=== PATIENT | male | born 1945 | race Caucasian/White ===

== ENCOUNTER → 2017-07-17 | Outpatient (CLI) | payer MEDICARE ==
[~2017-07-17] MED LIST: ALBUAER3 INH; ASPI1TAB57 PO; ATOR40TA16 PO; CHOL100025 CHEW; CRANCAP10 PO; CYCL10TA PO; DICL75TA PO; DOCU1CAP66 PO; FURO20TA PO; GLIP1TAB60 PO; KLOR10TA PO; LEVO175T2 PO; PERC5TAB12 PO; ROPI1TAB PO; STOOL SOFTENER; TEST200I12 IM; VIAG100T PO; VITA10002 PO; VITA200C3 PO
== END ==
LOC: CLAB 09:51
PROVIDERS: ATTEND Urology
DX: E29.1 Testicular hypofunction (principal)
CPT/HCPCS: 84403; 84410

== ENCOUNTER → 2017-07-17 | Outpatient (CLI) | payer MEDICARE ==
[2017-07-17 10:47] LABS: BASOPHIL % 0.6 % (0.0-2.0); EOSINOPHIL # 0.1 TH/MM3 (0-0.4); EOSINOPHIL % 1.6 % (0.0-4.0); HEMATOCRIT 52.2 % (39.0-51.0); HEMO FLAGS DIFF FINAL; LYMPH % 26.3 % (9.0-44.0); LYMPHOCYTE # 2.1 TH/MM3 (1.0-4.8); MEAN CELL VOLUME 89.1 FL (80.0-100.0); MEAN CORPUSCULAR HEMOGLOBIN 29.5 PG (27.0-34.0); MEAN CORPUSCULAR HGB CONC 33.2 % (32.0-36.0); MONO % 7.7 % (0.0-8.0); NEUT % 63.8 % (16.0-70.0); PLATELET COUNT 145 TH/MM3 (150-450); RED BLOOD COUNT 5.87 MIL/MM3 (4.50-5.90); RED CELL DISTRIBUTION WIDTH 15.5 % (11.6-17.2); WHITE BLOOD COUNT 7.9 TH/MM3 (4.0-11.0)
[2017-07-17 10:57] LABS: APTT (PATIENT) 27.8 SEC (24.3-30.1); INTERNATIONAL NORMALIZED RATIO 0.9 RATIO; PROTHROMBIN TIME - PATIENT 10.2 SEC (9.8-11.6)
[2017-07-17 10:59] LABS: BACTERIA, URINE MANY /hpf; BLOOD, URINE NEG (NEG); COMMENT (UR) CULTURE INDICATED; CULTURE IF INDICATED CULTURE INDICATED; GLUCOSE,URINE NEG (NEG); HYALINE CAST, URINE 36 /lpf (RARE); KETONE, URINE NEG (NEG); MUCUS URINE FEW /lpf (OCC); NITRITE,URINE POS (NEG); SQUAMOUS EPITHELIAL CELL URINE 1 /hpf (0-5); URINE COLOR YELLOW (YELLW/STRAW)
[2017-07-17 11:08] LABS: WESTERGREN SEDIMENTATION RATE 1 mm/hr (0-20)
[2017-07-17 11:16] LABS: ANION GAP 6 MEQ/L (5-15); AST (GOT) 16 U/L (15-37); BICARBONATE 31.2 MEQ/L (21.0-32.0); BLOOD UREA NITROGEN 16 MG/DL (7-18); CHLORIDE 99 MEQ/L (98-107); GLOMERULAR FILTRATION RATE 61 ML/MIN (>89); GLUCOSE,FASTING 161 MG/DL (74-99); POTASSIUM 4.2 MEQ/L (3.5-5.1); SODIUM (NA) 136 MEQ/L (136-145)
[2017-07-17 11:18] LABS: ALT (GPT) 38 U/L (12-78)
[2017-07-17 11:20] LABS: ALKALINE PHOSPHATASE 104 U/L (45-117); TOTAL BILIRUBIN ADULT 0.6 MG/DL (0.2-1.0)
--- NOTE | 2017-07-17 11:34 | RADRPT ---
EXAM DATE/TIME: 07/17/2017 11:16 [facility] COMPARISON: No previous studies available for comparison. INDICATIONS : Evaluate for pneumonia, pneumothorax and communicable diseases. Pre-op knee surgery MEDICAL HISTORY : Diebetic SURGICAL HISTORY : None. ENCOUNTER: Initial ACUITY: 1 day PAIN SCORE: 0/10 LOCATION: chest FINDINGS: PA and lateral views of the chest demonstrate the lungs to be symmetrically aerated without evidence of mass, infiltrate or effusion. The cardiomediastinal contours are unremarkable. Osseous structure s are intact. CONCLUSION: No acute disease. Jerad Temple MD FACR on July 17, 2017 at 11:32 Board Certified Radiologist. This report was verified electronically.
== END ==
LOC: CPRE 09:38
PROVIDERS: ATTEND Orthopaedic Surgery Sports Medicine
DX: Z01.811 Encounter for preprocedural respiratory examination (principal); Z01.812 Encounter for preprocedural laboratory examination; Z01.818 Encounter for other preprocedural examination; Z79.01 Long term (current) use of anticoagulants; M25.50 Pain in unspecified joint; M17.11 Unilateral primary osteoarthritis, right knee; B96.1 Klebsiella pneumoniae [K. pneumoniae] as the cause of diseases classified elsewhere; R82.90 Unspecified abnormal findings in urine
CPT/HCPCS: 36415; 71020; 80053; 81001; 85025; 85610; 85652; 85730; 87077; 87086; 87186

== ENCOUNTER 2017-08-03 05:13 | Inpatient (IN) | payer MEDICARE ==
[~2017-08-03] VITALS: Ht 165.1 cm; Wt 110.0 kg
[~2017-08-03 05:13] MED LIST changes: -STOOL SOFTENER
[2017-08-03] MEDS ORDERED: ceFAZolin 2 GM PREMIX 50 ML IV SCH (06:00)
[2017-08-03] MEDS ORDERED: CHLORHEXIDINE GLUCONATE 2 % 1 PACK (2 CLOTHS) TOPICAL PRN (06:00)
[2017-08-03] MEDS ORDERED: LACTATED RINGER'S 1000 ML IV PRN (06:00)
[2017-08-03] MEDS ORDERED: DEXAMETHASONE SOD PHOS 20 MG/5 ML VIAL IV SCH (06:00)
[2017-08-03] MEDS ORDERED: POVIDONE IODINE 7.5% SCRUB 118 ML BOTTLE TOPICAL SCH (06:00)
[2017-08-03] MEDS ORDERED: SODIUM CHLORID 0.9% 500 ML IV PRN (06:00)
[2017-08-03] MEDS ORDERED: METOPROLOL TARTRATE 25 MG TAB PO PRN (06:00)
[2017-08-03] MEDS ORDERED: CHLORHEXIDINE GLUCONATE 4% SOLN 120 ML BTL TOPICAL SCH (06:00)
[2017-08-03] MEDS ORDERED: VANCOMYCIN 1000 MG/NS 250 ML (for <70 kg) IV SCH ×2 (06:00)
[2017-08-03] MEDS ORDERED: POVIDONE IODINE 5% (ANTISEPSIS KIT) 4 APPLICATIONS EACH NARE PRN (06:00)
[2017-08-03] MEDS ORDERED: ENOX40P SQ (06:56)
[2017-08-03] MEDS ORDERED: PERC5TAB12 PO (06:56)
[2017-08-03] MEDS ORDERED: ASPI81CH6 CHEW (06:57)
[2017-08-03] MEDS ORDERED: ONDANSETRON HCL 4 MG/2 ML VIAL IVP PRN (07:00)
[2017-08-03] MEDS ORDERED: Post-op Orders (for Pharmacy) MISC XX ONE (07:00)
[2017-08-03] MEDS ORDERED: ZOLPIDEM TARTRATE 5 MG TAB PO PRN (07:00)
[2017-08-03] MEDS ORDERED: BISACODYL 10 MG SUPP RECTAL PRN (07:00)
[2017-08-03] MEDS ORDERED: MORPHINE SULFATE 4 MG/ML INJ IV PUSH PRN (07:00)
[2017-08-03] MEDS ORDERED: diphenhydrAMINE HCL 50 MG/ML VIAL IV PUSH PRN (07:00)
[2017-08-03] MEDS ORDERED: oxyCODONE/ACETAMINOPHEN 5 MG/325 MG TAB PO PRN (07:00)
[2017-08-03] MEDS ORDERED: GENTAMICIN SULFATE 80 MG/2 ML VIAL ONE (07:32)
[2017-08-03] MEDS: TRANEXAMIC ACID INJ 1,107 MG in SODIUM CHLORIDE 0.9% INJ 100 ML IV SCH ×2 (08:10→11:04)
[2017-08-03] MEDS ORDERED: SODIUM CHLORIDE 0.9% FLUSH 10 ML FLUSH IV FLUSH PRN (08:30)
[2017-08-03] MEDS ORDERED: PILL SPLITTER OTHER PRN (08:30)
[2017-08-03] MEDS ORDERED: SODIUM CHLORIDE 0.9% IV SCH (08:30)
[2017-08-03] MEDS ORDERED: TRANEXAMIC PERI-ARTICULAR 3,000 MG/NS 100 ML P-ARTICULR SCH ×2 (08:30)
[2017-08-03] MEDS ORDERED: TRANEXAMIC ACID IV SCH (08:30)
[2017-08-03] MEDS ORDERED: ROPIVACAINE PERI-ARTICULAR INJECTION. P-ARTICULR SCH ×5 (08:30)
[2017-08-03] MEDS: POTASSIUM CHLORIDE 10 MEQ CONTROLLED RELEASE TAB PO SCH (09:00)
[2017-08-03] MEDS ORDERED: GLUCAGON 1 MG/ML VIAL OTHER PRN (09:00)
[2017-08-03] MEDS: FUROSEMIDE 20 MG TAB PO SCH (09:00)
[2017-08-03] MEDS: SODIUM CHLORIDE 0.9% FLUSH 10 ML FLUSH IV FLUSH SCH ×2 (09:00→20:32)
[2017-08-03] MEDS ORDERED: ALBUTEROL SULFATE 90 MCG/ACT HFA 8 GM INHALER INH PRN (09:00)
[2017-08-03] MEDS ORDERED: DEXTROSE 50% IN WATER 50 ML VIAL(D50) IV PUSH PRN (09:00)
[2017-08-03] MEDS: SODIUM CHLOR 0.9% 1000 ML INJ 1,000 ML IV SCH ×2 (09:00→20:32)
[2017-08-03] MEDS: glipiZIDE 5 MG TAB PO SCH ×2 (09:00→17:47)
[2017-08-03] MEDS ORDERED: DO NOT ADM ANY ANTICOAGULANT DRUGS PRN (10:00)
--- NOTE | 2017-08-03 10:44 | MP ---
cc: SHIRAZ VILLATORO DATE OF SURGERY: 08/03/2017 PREOPERATIVE DIAGNOSIS Right knee osteoarthritis. POSTOPERATIVE DIAGNOSES Right knee osteoarthritis. PROCEDURE Right total knee arthroplasty. SURGEON Dr. Shiraz Villatoro. MALT HOUSE OPERATOR Shiraz Lugo PA-C. ANESTHESIA General with an adductor canal femoral nerve block. ESTIMATED BLOOD LOSS 50 cc. COMPLICATIONS None. IMPLANTS USED DePuy Attune, size 7 posterior stabilized femoral component, size 7 rotating platform tibial baseplate, size 5 mm tibial insert, size 38 patella. JUSTIFICATION This patient is a 72-year-old male with a history of severe end-stage osteoarthritis involving the right knee. He has severe disabling pain with standing, walking, ambulation, weightbearing activities, and even severe pain at rest. He has failed greater than three months of nonoperative conservative treatment to include medication therapy, injections, ambulatory assisted aids, home exercise program, activity modification and weight loss. X-rays of the right knee reveal severe end-stage osteoarthritis with [id number] joint space narrowing, subchondral sclerosis, subchondral cysts, osteophyte admission with subluxation deformity. The patient was counseled on the risks, benefits and alternatives of a total knee arthroplasty. The risks were discussed which include but are not limited to anesthesia, bleeding, infection, damage to nerves and blood vessels, pain, stiffness, failure of components, blood clots, pulmonary embolism and even . The patient's pain is severe. He favored the benefits over the risks. He did wish to proceed with surgery. PROCEDURE IN DETAIL A written consent was obtained. The patient was identified by name, taken to the operating room and placed supine on the operating table. General anesthesia was administered as well as two grams of IV Ancef and one gram of IV vancomycin. He did receive a preoperative adductor canal femoral nerve block by the anesthesiologist under ultrasound guidance. A well-padded tourniquet was placed on the right thigh. The right lower extremity was prepped and draped using isopropyl alcohol, Hibiclens solution and ChloraPrep solution. After a timeout was performed an Esmarch bandage was used to exsanguinate the right lower extremity and the tourniquet inflated to 250 mmHg. A longitudinal incision was made over the anterior aspect of the right knee. A medial parapatellar arthrotomy was performed. The patella was everted and a patellar resection guide was used to resect 9 mm of patella. A size 38 mm guide was placed. Three drill holes were placed and the 38 mm trial fit well. Attention was turned to the femur where an intramedullary guide dali was placed and the distal femoral guide was set to remove 10 mm of distal femur fracture 5 degrees off the anatomic valgus axis alignment. An oscillating saw was used to perform the distal femoral cut. Attention was turned to the tibia where an extramedullary tibial guide was set to remove 5 mm off the lowest portion of the medial tibial plateau. The tibial guide was pinned in place and the tibia cut was performed. A 5 mm spacer block showed full extension. Attention was turned back to the femur where the AP sizing block measured size 7. The anterior reference 3 degree external rotation guide was used to pin a size [address] The anterior, posterior and chamfer cuts were performed. A size 7 PCL box guide was pinned in place and the PCL was box cut with an oscillating saw. The medial and lateral meniscus remnants were removed as well as bone and soft tissue debris from the posterior portion of the knee. A size 7 tibial baseplate was pinned in place and the tibia was drilled and punched. Trial components were evaluated and final components cemented in place. With the current components the leg could achieve full extension to 0 degrees and flexion to 140. No evidence of tibial lift-off. Varus-valgus balance appeared appropriate and symmetric, and the patella was noted to track centrally. The tourniquet was deflated. Bovie cautery was used for hemostasis. The surgical wound was thoroughly irrigated with sterile saline pulse lavage antibiotic-impregnated solution. The arthrotomy incision was closed with #1 Vicryl suture, the subcutaneous layer with 2-0 Vicryl suture, and the skin was closed with Dermabond. Sterile dressing was applied. The patient tolerated the procedure well with no intraoperative complications noted. Shiraz Lugo, physician sourcing assistant certified, was present during the entire procedure to include patient positioning and the procedure itself. The medical necessity of a physician sourcing assistant was indicated in this case due to the complexity of the procedure. He assisted with manipulation of the leg and also traction of muscle, tendon, bone and neurovascular structures. He assisted with preparation of bone and also implantation of the prosthetic replacement. MD VANESSA Moore/NATHALY /9:38 AM /10:22 AM
--- NOTE | 2017-08-03 10:56 | RADRPT ---
EXAM DATE/TIME: 08/03/2017 10:11 [facility] COMPARISON: No previous studies available for comparison. INDICATIONS : Post op right total knee replacement. MEDICAL HISTORY : Diabetes mellitus type II. SURGICAL HISTORY : None. ENCOUNTER: Initial ACUITY: 1 day PAIN SCORE: 8/10 LOCATION: Right Knee FINDINGS: 2 views of the knee show a total knee prosthesis in good position. No fracture or dislocation is obse rved. Soft tissue swelling is noted. Air and fluid noted within the joint. CONCLUSION: Total knee prosthesis in good position. Sam Buck Jr., MD on August 03, 2017 at 10:53 Board Certified Radiologist. This report was verified electronically.
[2017-08-03 11:19] VITALS: BP 153/70; PULSE 90; RESP 17; TEMP 96.7; O2SAT 98
[2017-08-03] MEDS ORDERED: ROCURONIUM INJ 50 MG/5 ML SYRINGE IV PUSH ONE (12:00)
[2017-08-03] MEDS ORDERED: LABETALOL HCL 100 MG/20 ML VIAL IV ONE (12:00)
[2017-08-03] MEDS ORDERED: MORPHINE SULFATE 4 MG/ML INJ IV ONE (12:00)
[2017-08-03] MEDS ORDERED: LIDOCAINE HCL 1% PF 5 ML SYRINGE OTHER ONE (12:00)
[2017-08-03] MEDS ORDERED: LACTATED RINGER'S 1000 ML INJ 1,000 ML IV ONE (12:00)
[2017-08-03] MEDS ORDERED: SUCCINYLCHOLINE CHLORIDE 100 MG/5 ML SYRINGE IV PUSH ONE (12:00)
[2017-08-03] MEDS ORDERED: ONDANSETRON HCL 4 MG/2 ML VIAL IV ONE (12:00)
[2017-08-03] MEDS ORDERED: PROPOFOL 200 MG/20 ML AMP IV ONE (12:00)
[2017-08-03] MEDS ORDERED: DEXAMETHASONE SOD PHOS 4 MG/ML VIAL IV ONE (12:00)
--- NOTE | 2017-08-03 12:58 | PD.CONS ---
[facility] By Dr. Luke Gillis Reason for Consult Medical management Primary Care Physician Non-Staff Diagnoses: History of Present Illness This is a 72-year-old male with a history of right knee pain secondary to osteoarthritis. He underwent total knee replacement by Dr. Luke Gillis who requested consultation to evaluate and manage multiple medical conditions. Anesthesia records reviewed he was hemodynamically stable received 1500 mL crystalloid, EBL 100 mL and urine output of 200 mL. At this time, patient has no complaints denies knee pain and nausea. States he has restless leg syndrome controlled on Requip, recently diagnosed with fluid overload by his occupational medicine officer who started him on Lasix and potassium and also cleared him for surgery, CAD status post cardiac catheterization and negative stress test over a year ago, diabetes mellitus controlled on glipizide, hyperlipidemia controlled on Lipitor and recently treated for Klebsiella UTI with ciprofloxacin. All other systems reviewed negative Review of Systems Except as stated in HPI: all other systems reviewed are Neg Past Family Social History Allergies: Coded Allergies: Tetracyclines (Verified Allergy, Severe, Burning, 08/03/17) doxycycline (Verified Allergy, Severe, POSSIBLE REACTION OF REDNESS, FEELING OF ON FIRE, 08/03/17) ibuprofen (Verified Allergy, Severe, CHEST PAIN, 08/03/17) minocycline (Verified Allergy, Severe, POSSIBLE REACTION OF REDNESS, FEELING OF ON FIRE, 08/03/17) niacin (Verified Allergy, Severe, REDNESS,FELT LIKE i WAS ON FIRE, ) tigecycline (Verified Allergy, Severe, POSSIBLE REACTION OF REDNESS, FEELING OF ON FIRE, 08/03/17) Past Medical History As previously mentioned. He also has hypothyroidism Past Surgical History Tonsillectomy and adenectomy, cholecystectomy, appendectomy, urethral dilation and left total knee replacement Reported Medications Aspirin Low Dose (Aspirin) 81 Mg Chew 81 Mg CHEW BID 30 Days Lovenox Inj (Enoxaparin Sodium) 40 Mg/0.4 Ml Syr 40 Mg SQ DAILY Percocet (Oxycodone-Acetaminophen) 5-325 mg Tab 1-2 Tab PO Q4H PRN Testosterone Cypionate Inj (Testosterone Cypionate) 200 Mg/Ml Inj 200 Mg IM Q28D Viagra (Sildenafil Citrate) 100 Mg Tab 100 Mg PO DAILY PRN Reported Klor-Con 10 (Potassium Chloride) 10 Meq Tab 20 Meq PO DAILY Furosemide 20 Mg Tab 20 Mg PO DAILY Vitamin E 200 Unit Cap 400 Units PO HS Proair Hfa 8.5 GM Inh (Albuterol Sulfate) 90 Mcg/Act Aer 2 Puff INH Q4-6H PRN 108 mcg/actuation Diclofenac Sodium DR (Diclofenac Sodium) 75 Mg Tabdr 75 Mg PO BID PRN Flexeril (Cyclobenzaprine HCl) 10 Mg Tab 10 Mg PO HS 1/2 tab daily Aspirin 81 (Aspirin) 81 Mg Tabdr 81 Mg PO HS Percocet (Oxycodone-Acetaminophen) 5-325 mg Tab 1 Tab PO Q6H PRN Vitamin D3 (Cholecalciferol) 1,000 Unit Chew 1,000 Units CHEW HS Cranberry Plus Vitamin C (Cranberry-Vitamin C-Vitamin E) 4,200-20-3 Mg-Mg-Unit Cap 1 Cap PO HS Vitamin B-12 ER (Cyanocobalamin) 1,000 Mcg Tab 1,000 Mcg PO HS Stool Softener (Docusate Sodium) 100 Mg Cap 100 Mg PO DAILY PRN Atorvastatin (Atorvastatin Calcium) 40 Mg Tab 40 Mg PO HS 1/2 tab daily Levothyroxine (Levothyroxine Sodium) 175 Mcg Tab 175 Mcg PO DAILY@0600 Ropinirole 1 Mg Tab 1 Mg PO HS Glipizide ER (Glipizide) 2.5 Mg Bruno 2.5 Mg PO BID Take with breakfast or first main meal of the day Family History COPD Social History Ex smoker over [id number] smoking history and ex alcoholic drinker Physical Exam Vital Signs Vital Signs Date Time Temp Pulse Resp B/P (MAP) Pulse Ox O2 Delivery O2 Flow Rate FiO2 08/03/17 11:15 Nasal Cannula 3.00 08/03/17 11:00 98.1 81 14 139/63 (88) 95 Nasal Cannula 3 08/03/17 10:45 79 14 147/69 (95) 96 Nasal Cannula 3 08/03/17 10:30 82 14 160/72 (101) 95 Nasal Cannula 3 08/03/17 10:15 80 14 156/72 (100) 96 Nasal Cannula 3 08/03/17 10:08 98.1 81 14 162/74 (103) 94 Nasal Cannula 3 08/03/17 06:28 98.0 77 20 145/80 (101) 96 Physical Exam GENERAL: This is an obese, well-developed patient, in no apparent distress. SKIN: No rashes, ecchymoses or lesions. Cool and dry. HEAD: Atraumatic. Normocephalic. No temporal or scalp tenderness. EYES: Pupils equal round and reactive. Extraocular motions intact. No scleral icterus. No injection or drainage. ENT: Nose without bleeding, purulent drainage or septal hematoma. Throat without erythema, tonsillar hypertrophy or exudate. Uvula midline. Airway patent. NECK: Trachea midline. No JVD or lymphadenopathy. Supple, nontender, no meningeal signs. CARDIOVASCULAR: Regular rate and rhythm without gallops, or rubs. Systolic murmur consistent with aortic stenosis RESPIRATORY: Clear to auscultation. Breath sounds equal bilaterally. No wheezes , rales, or rhonchi. GASTROINTESTINAL: Abdomen soft, non-tender, nondistended. No guarding. MUSCULOSKELETAL: Extremities without clubbing, cyanosis, or edema. Left lower extremity with dry and bulky dressing NEUROLOGICAL: Awake and alert. Cranial nerves II through XII intact. Motor and sensory grossly within normal limits. Five out of 5 muscle strength in all muscle groups. Normal speech. Laboratory Outpatient workup reviewed white count of 7.9 hemoglobin 17 platelet count of 145 INR 0.9 CMP remarkable for creatinine 1.17, urinalysis unremarkable and chest x-ray unremarkable Assessment and Plan Assessment and Plan This is a 72-year-old male with a history of right knee pain secondary to osteoarthritis. He underwent total knee replacement by Dr. Luke Gillis who requested consultation to evaluate and manage multiple medical conditions. Anesthesia records reviewed he was hemodynamically stable received 1500 mL crystalloid, EBL 100 mL and urine output of 200 mL. Left total knee replacement. Stable continue postoperative care with PT, wound care, DVT prophylaxis with Lovenox, incentive spirometry and pain management with Percocet and morphine sulfate. Discontinue Eaton catheter as soon as possible. Check CBC to monitor for postoperative anemia secondary to acute blood loss Restless leg syndrome controlled on Requip which will be continued. Recently diagnosed with fluid overload by his occupational medicine officer who started him on Lasix and potassium and also cleared him for surgery. Continue Lasix and potassium and will decrease IV fluid monitor for overload CAD status post cardiac catheterization and negative stress test over a year ago. Stable continue statin and restart aspirin if okay with cardiology diabetes mellitus controlled on glipizide which will also be continued. Monitor fingerstick sugars have scale coverage Recently treated for Klebsiella UTI with ciprofloxacin. History of recurrent UTI status post urethral dilation. Repeat urinalysis improved Discussed Condition With Patient and family. Ortiz Deal MD Aug 03, 2017 12:58
[2017-08-03] MEDS: ceFAZolin 2 GM PREMIX 50 ML IV SCH ×2 (13:13→20:31)
[2017-08-03] MEDS: INSULIN ASPART SUPPLEMENTAL SCALE SQ SCH ×3 (13:18→20:32)
[2017-08-03] MEDS: LEVOTHYROXINE SODIUM 25 MCG TAB PO SCH (14:00)
[2017-08-03] MEDS: LEVOTHYROXINE SODIUM 150 MCG TAB PO SCH (14:00)
[2017-08-03 16:00] VITALS: BP 114/63; PULSE 96; RESP 18; TEMP 96; O2SAT 95
[2017-08-03 19:00] VITALS: BP 137/76; PULSE 103; RESP 17; TEMP 98.3; O2SAT 96
[2017-08-03] MEDS: CYCLOBENZAPRINE HCL 10 MG TAB PO SCH (20:31)
[2017-08-04] VITALS (7 sets, daily range): BP systolic 118–146; BP diastolic 59–78; PULSE 85–98; RESP 15–19; TEMP 96–97.4; O2SAT 95–97
[2017-08-04] MEDS: ceFAZolin 2 GM PREMIX 50 ML IV SCH (01:06)
[2017-08-04] MEDS: LEVOTHYROXINE SODIUM 25 MCG TAB PO SCH (05:54)
[2017-08-04] MEDS: LEVOTHYROXINE SODIUM 150 MCG TAB PO SCH (05:54)
[2017-08-04 06:13] LABS: HEMATOCRIT 40.4 % (39.0-51.0); MEAN CELL VOLUME 88.5 FL (80.0-100.0); MEAN CORPUSCULAR HEMOGLOBIN 30.1 PG (27.0-34.0); PLATELET COUNT 175 TH/MM3 (150-450); RED BLOOD COUNT 4.57 MIL/MM3 (4.50-5.90); RED CELL DISTRIBUTION WIDTH 14.3 % (11.6-17.2); REVIEW FLAG FINAL; WHITE BLOOD COUNT 14.3 TH/MM3 (4.0-11.0)
[2017-08-04 06:31] LABS: BICARBONATE 26.8 MEQ/L (21.0-32.0); POTASSIUM 4.3 MEQ/L (3.5-5.1)
[2017-08-04] MEDS: ENOXAPARIN SODIUM 40 MG/0.4 ML SYRINGE SQ SCH (07:54)
[2017-08-04] MEDS: INSULIN ASPART SUPPLEMENTAL SCALE SQ SCH ×4 (07:55→21:00)
[2017-08-04] MEDS: oxyCODONE/ACETAMINOPHEN 5 MG/325 MG TAB PO PRN ×3 (07:55→17:32)
[2017-08-04] MEDS: POTASSIUM CHLORIDE 10 MEQ CONTROLLED RELEASE TAB PO SCH (07:55)
[2017-08-04] MEDS: glipiZIDE 5 MG TAB PO SCH ×2 (07:56→17:32)
[2017-08-04] MEDS: SODIUM CHLORIDE 0.9% FLUSH 10 ML FLUSH IV FLUSH SCH ×2 (07:56→22:17)
[2017-08-04] MEDS: FUROSEMIDE 20 MG TAB PO SCH (07:56)
[2017-08-04] MEDS ORDERED: glipiZIDE 5 MG TAB PO SCH (08:00)
--- NOTE | 2017-08-04 08:23 | PD.ORT.PN ---
Subjective Post Op Day #: 1 Subjective Remarks pain under control. Objective Vitals Vital Signs Date Time Temp Pulse Resp B/P (MAP) Pulse Ox O2 Delivery O2 Flow Rate FiO2 08/04/17 07:31 97.4 86 19 118/59 (78) 95 08/04/17 07:15 Nasal Cannula 3.00 08/04/17 04:00 96.0 96 17 129/70 (89) 96 08/04/17 00:00 96.0 98 15 138/78 (98) 97 08/03/17 20:40 Nasal Cannula 3.00 08/03/17 19:00 98.3 103 17 137/76 (96) 96 08/03/17 16:00 96.0 96 18 114/63 (80) 95 08/03/17 12:59 Nasal Cannula 3.00 08/03/17 11:19 96.7 90 17 153/70 (97) 98 08/03/17 11:15 Nasal Cannula 3.00 08/03/17 11:00 98.1 81 14 139/63 (88) 95 Nasal Cannula 3 08/03/17 10:45 79 14 147/69 (95) 96 Nasal Cannula 3 08/03/17 10:30 82 14 160/72 (101) 95 Nasal Cannula 3 08/03/17 10:15 80 14 156/72 (100) 96 Nasal Cannula 3 08/03/17 10:08 98.1 81 14 162/74 (103) 94 Nasal Cannula 3 I/O 08/03/17 08/03/17 08/03/17 08/04/17 08/04/17 08/04/17 07:00 15:00 23:00 07:00 15:00 23:00 Intake Total 1980 ml 530 ml 290 ml Output Total 750 ml 1600 ml 600 ml Balance 1230 ml -1070 ml -310 ml Intake Oral 480 ml 480 ml 240 ml IV Total 50 ml 50 ml Other 1500 ml Output Urine Total 650 ml 1600 ml 600 ml Estimated Blood Loss 100 ml # Bowel Movements 0 0 0 Result Diagram: 08/04/17 04508/04/17 045 Objective Remarks in bed, nad dressing c/d/i neg homans nvi Assessment & Plan Ortho Post Op Day #: 1 Problem List: Assessment and Plan s/p R TKA wbat daily dressing changes lovenox d/c planning to snf rx in chart [id number] signed f/up dr. whyte 2 weeks Luke Lugo Aug 04, 2017 08:23
--- NOTE | 2017-08-04 08:25 | HHI.DCPOC ---
Discharge Care Plan Diagnosis: (1) Primary localized osteoarthrosis, lower leg Your Health Problems Are: Difficulty with ADL Goals to Promote Your Health * To prevent worsening of your condition and complications * To maintain your health at the optimal level Directions to Meet Your Goals Take your medications as prescribed Follow your dietary instruction Follow activity as directed Keep your appointments as scheduled Take your immunizations and boosters as scheduled If your symptoms worsen call your PCP, if no PCP go to Urgent Care Center or Emergency Room Smoking is Dangerous to Your Health. Avoid second hand smoke Call the 24-hour hour crisis hotline for domestic abuse at Luke Lugo Aug 04, 2017 08:25
[2017-08-04] MEDS ORDERED: WALKER WHEELS/F1 MIS (08:27)
[2017-08-04] MEDS ORDERED: COMMODE 3-IN-11 MIS (08:27)
[2017-08-04] MEDS ORDERED: CPMMACHINE (08:27)
--- NOTE | 2017-08-04 09:28 | HHI.PR ---
Subjective Remarks Follow-up right knee surgery. Patient states he is doing okay denies pain. Eaton catheter has been discontinued and has not been able to void. Patient seems to be forgetful doesn't remember that he was already out of bed yesterday. He also doesn't recall being on other diabetic medications. Discussed with RN to clarify with family acuity of forgetfulness Objective Vitals Vital Signs Date Time Temp Pulse Resp B/P (MAP) Pulse Ox O2 Delivery O2 Flow Rate FiO2 08/04/17 07:31 97.4 86 19 118/59 (78) 95 08/04/17 07:15 Nasal Cannula 3.00 08/04/17 04:00 96.0 96 17 129/70 (89) 96 08/04/17 00:00 96.0 98 15 138/78 (98) 97 08/03/17 20:40 Nasal Cannula 3.00 08/03/17 19:00 98.3 103 17 137/76 (96) 96 08/03/17 16:00 96.0 96 18 114/63 (80) 95 08/03/17 12:59 Nasal Cannula 3.00 08/03/17 11:19 96.7 90 17 153/70 (97) 98 08/03/17 11:15 Nasal Cannula 3.00 08/03/17 11:00 98.1 81 14 139/63 (88) 95 Nasal Cannula 3 08/03/17 10:45 79 14 147/69 (95) 96 Nasal Cannula 3 08/03/17 10:30 82 14 160/72 (101) 95 Nasal Cannula 3 08/03/17 10:15 80 14 156/72 (100) 96 Nasal Cannula 3 08/03/17 10:08 98.1 81 14 162/74 (103) 94 Nasal Cannula 3 I/O 08/03/17 08/03/17 08/03/17 08/04/17 08/04/17 08/04/17 07:00 15:00 23:00 07:00 15:00 23:00 Intake Total 1980 ml 530 ml 290 ml Output Total 750 ml 1600 ml 600 ml Balance 1230 ml -1070 ml -310 ml Intake Oral 480 ml 480 ml 240 ml IV Total 50 ml 50 ml Other 1500 ml Output Urine Total 650 ml 1600 ml 600 ml Estimated Blood Loss 100 ml # Bowel Movements 0 0 0 Result Diagram: 08/04/17 0450 08/04/17 0450 Imaging Last Impressions Knee X-Ray 08/03/17 0654 Signed Impressions: Service Date/Time: Thursday, August 03, 2017 10:11 - CONCLUSION: Total knee prosthesis in good position. Sam Buck Jr., MD Objective Remarks GENERAL: This is an obese, well-developed patient, in no apparent distress. SKIN: No rashes, ecchymoses or lesions. Cool and dry. CARDIOVASCULAR: Regular rate and rhythm without gallops, or rubs. Systolic murmur consistent with aortic stenosis RESPIRATORY: Clear to auscultation. Breath sounds equal bilaterally. No wheezes , rales, or rhonchi. GASTROINTESTINAL: Abdomen soft, non-tender, nondistended. No guarding. MUSCULOSKELETAL: Extremities without clubbing, cyanosis, or edema. Left lower extremity with dry and bulky dressing NEUROLOGICAL: Awake and alert. Cranial nerves II through XII intact. Motor and sensory grossly within normal limits. Five out of 5 muscle strength in all muscle groups. Normal speech. A/P Assessment and Plan This is a 72-year-old male with a history of right knee pain secondary to osteoarthritis. He underwent total knee replacement by Dr. Luke Gillis who requested consultation to evaluate and manage multiple medical conditions. Anesthesia records reviewed he was hemodynamically stable received 1500 mL crystalloid, EBL 100 mL and urine output of 200 mL. Left total knee replacement. Stable continue postoperative care with PT, wound care, DVT prophylaxis with Lovenox, incentive spirometry and pain management with Percocet and morphine sulfate. Discontinued Eaton catheter and monitor voiding. Check CBC to monitor for postoperative anemia secondary to acute blood loss Leukocytosis likely reactive. Monitor Restless leg syndrome controlled on Requip which will be continued. Recently diagnosed with fluid overload by his food and nutrition professor who started him on Lasix and potassium and also cleared him for surgery. Continue Lasix and potassium. Discontinue IV fluids CAD status post cardiac catheterization and negative stress test over a year ago. Stable continue statin and restart aspirin if okay with cardiology diabetes mellitus. Uncontrolled increase glipizide to 5 mg twice a day. Check A1c consider metformin. Monitor fingerstick with sliding scale coverage Recently treated for Klebsiella UTI with ciprofloxacin. History of recurrent UTI status post urethral dilation. Repeat urinalysis improved Cognitive impairment. Not clear if this is chronic we will clarify with family Ortiz Deal MD Aug 04, 2017 09:28
[2017-08-04] MEDS: SODIUM CHLOR 0.9% 1000 ML INJ 1,000 ML IV SCH (10:43)
[2017-08-04 15:57] LABS: HEMOGLOBIN A1a 0.9 %; HEMOGLOBIN A1b 2.1 %; HEMOGLOBIN Ao 82.3 %; HEMOGLOBIN LA1C 2.5 %; HEMOGLOBIN P3 4.3 %
[2017-08-04] MEDS: MULTIVITAMINS/MINERALS THERAPEUTIC TAB PO SCH (22:16)
[2017-08-04] MEDS: DOCUSATE SODIUM 100 MG CAP PO SCH (22:16)
[2017-08-04] MEDS: CYCLOBENZAPRINE HCL 10 MG TAB PO SCH (22:17)
[2017-08-05 00:05] VITALS: BP 143/65; PULSE 87; RESP 17; TEMP 97.9; O2SAT 97
[2017-08-05] MEDS: SODIUM CHLOR 0.9% 1000 ML INJ 1,000 ML IV SCH ×2 (01:01→10:52)
[2017-08-05 06:35] LABS: HEMATOCRIT 40.7 % (39.0-51.0); MEAN CELL VOLUME 87.9 FL (80.0-100.0); MEAN CORPUSCULAR HEMOGLOBIN 29.2 PG (27.0-34.0); MEAN CORPUSCULAR HGB CONC 33.2 % (32.0-36.0); PLATELET COUNT 181 TH/MM3 (150-450); RED BLOOD COUNT 4.63 MIL/MM3 (4.50-5.90); RED CELL DISTRIBUTION WIDTH 14.8 % (11.6-17.2); REVIEW FLAG FINAL; WHITE BLOOD COUNT 11.1 TH/MM3 (4.0-11.0)
[2017-08-05] MEDS: LEVOTHYROXINE SODIUM 150 MCG TAB PO SCH (06:36)
[2017-08-05] MEDS: LEVOTHYROXINE SODIUM 25 MCG TAB PO SCH (06:36)
[2017-08-05 07:01] LABS: BICARBONATE 33.4 MEQ/L (21.0-32.0); POTASSIUM 4.3 MEQ/L (3.5-5.1)
[2017-08-05 07:30] VITALS: BP 154/71; PULSE 89; RESP 19; TEMP 97.5; O2SAT 97
--- NOTE | 2017-08-05 07:41 | PD.ORT.PN ---
Subjective Post Op Day #: 2 Subjective Remarks pain tolerable. thinks he is doing well. Objective Vitals Vital Signs Date Time Temp Pulse Resp B/P (MAP) Pulse Ox O2 Delivery O2 Flow Rate FiO2 08/05/17 07:30 97.5 89 19 154/71 (98) 97 08/05/17 00:05 97.9 87 17 143/65 (91) 97 08/04/17 20:00 96.8 89 18 146/65 (92) 97 08/04/17 16:00 96.7 85 19 130/64 (86) 97 08/04/17 11:48 96.4 93 19 125/67 (86) 95 08/04/17 09:00 97 Nasal Cannula 2.00 I/O 08/04/17 08/04/17 08/04/17 08/05/17 08/05/17 08/05/17 07:00 15:00 23:00 07:00 15:00 23:00 Intake Total 290 ml 600 ml 360 ml 240 ml Output Total 600 ml 500 ml Balance -310 ml 100 ml 360 ml 240 ml Intake Oral 240 ml 600 ml 360 ml 240 ml IV Total 50 ml Output Urine Total 600 ml 500 ml # Voids 1 2 # Bowel Movements 0 0 0 0 Result Diagram: 08/05/1762108/05/17621 Objective Remarks in bed, nad incision no erythema, no drainage neg homans nvi Assessment & Plan Ortho Post Op Day #: 2 Problem List: Assessment and Plan s/p R TKA wbat daily dressing changes lovenox d/c planning to snf rx in chart [id number] signed f/up dr. whyte 2 weeks Luke Lugo Aug 05, 2017 07:41
[2017-08-05] MEDS: glipiZIDE 5 MG TAB PO SCH ×2 (08:00→17:06)
[2017-08-05] MEDS: INSULIN ASPART SUPPLEMENTAL SCALE SQ SCH ×4 (08:00→21:40)
[2017-08-05] MEDS: DOCUSATE SODIUM 100 MG CAP PO SCH ×2 (08:03→21:40)
[2017-08-05] MEDS: POTASSIUM CHLORIDE 10 MEQ CONTROLLED RELEASE TAB PO SCH (08:04)
[2017-08-05] MEDS: FUROSEMIDE 20 MG TAB PO SCH (08:04)
[2017-08-05] MEDS: MULTIVITAMINS/MINERALS THERAPEUTIC TAB PO SCH ×2 (08:04→21:39)
[2017-08-05] MEDS: ENOXAPARIN SODIUM 40 MG/0.4 ML SYRINGE SQ SCH (08:05)
[2017-08-05] MEDS: oxyCODONE/ACETAMINOPHEN 5 MG/325 MG TAB PO PRN (08:05)
[2017-08-05] MEDS: SODIUM CHLORIDE 0.9% FLUSH 10 ML FLUSH IV FLUSH SCH ×2 (08:05→21:00)
[2017-08-05 11:34] VITALS: BP 130/60; PULSE 91; RESP 19; TEMP 97.8; O2SAT 98
--- NOTE | 2017-08-05 12:57 | HHI.PR ---
Subjective Remarks Follow-up right knee surgery. Appears in nad. Pain is better controlled by meds. No fever or chills. No n/v/d/ c. Objective Vitals Vital Signs Date Time Temp Pulse Resp B/P (MAP) Pulse Ox O2 Delivery O2 Flow Rate FiO2 08/05/17 11:34 97.8 91 19 130/60 (83) 98 08/05/17 11:24 Room Air 08/05/17 08:09 Nasal Cannula 1.00 08/05/17 07:30 97.5 89 19 154/71 (98) 97 08/05/17 00:05 97.9 87 17 143/65 (91) 97 08/04/17 20:00 96.8 89 18 146/65 (92) 97 08/04/17 16:00 96.7 85 19 130/64 (86) 97 I/O 08/04/17 08/04/17 08/04/17 08/05/17 08/05/17 08/05/17 07:00 15:00 23:00 07:00 15:00 23:00 Intake Total 290 ml 600 ml 360 ml 240 ml Output Total 600 ml 500 ml Balance -310 ml 100 ml 360 ml 240 ml Intake Oral 240 ml 600 ml 360 ml 240 ml IV Total 50 ml Output Urine Total 600 ml 500 ml # Voids 1 2 # Bowel Movements 0 0 0 0 Result Diagram: 08/05/1762108/05/1722 Imaging Last Impressions Knee X-Ray 08/03/17 0654 Signed Impressions: Service Date/Time: Thursday, August 03, 2017 10:11 - CONCLUSION: Total knee prosthesis in good position. Sam Buck Jr., MD Objective Remarks GENERAL: This is an obese, well-developed patient, in no apparent distress. SKIN: No rashes, ecchymoses or lesions. Cool and dry. CARDIOVASCULAR: Regular rate and rhythm without gallops, or rubs. Systolic murmur consistent with aortic stenosis RESPIRATORY: Clear to auscultation. Breath sounds equal bilaterally. No wheezes , rales, or rhonchi. GASTROINTESTINAL: Abdomen soft, non-tender, nondistended. No guarding. MUSCULOSKELETAL: Extremities without clubbing, cyanosis, or edema. Left lower extremity with dry and bulky dressing NEUROLOGICAL: Awake and alert. Cranial nerves II through XII intact. Motor and sensory grossly within normal limits. Five out of 5 muscle strength in all muscle groups. Normal speech. A/P Assessment and Plan This is a 72-year-old male with a history of right knee pain secondary to osteoarthritis. He underwent total knee replacement by Dr. Luke Gillis who requested consultation to evaluate and manage multiple medical conditions. Anesthesia records reviewed he was hemodynamically stable received 1500 mL crystalloid, EBL 100 mL and urine output of 200 mL. Left total knee replacement. Stable continue postoperative care with PT, wound care, DVT prophylaxis with Lovenox, incentive spirometry and pain management with Percocet and morphine sulfate. Discontinued Eaton catheter and monitor voiding. Check CBC to monitor for postoperative anemia secondary to acute blood loss Leukocytosis likely reactive. Monitor Restless leg syndrome controlled on Requip which will be continued. 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 Continue Lasix and potassium. Discontinue IV fluids CAD status post cardiac catheterization and negative stress test over a year ago. Stable continue statin and restart aspirin if okay with cardiology Diabetes mellitus. Uncontrolled. A1c is 7.2 . Increase glipizide to 5 mg twice a day. Consider metformin. Monitor fingerstick with sliding scale coverage Recently treated for Klebsiella UTI with ciprofloxacin. History of recurrent UTI status post urethral dilation. Repeat urinalysis improved Cognitive impairment. Not clear if this is chronic we will clarify with family Discussed with the patient, nurse. Tina Napier MD Aug 05, 2017 12:57
[2017-08-05 15:33] VITALS: O2SAT 98
[2017-08-05 15:47] VITALS: BP 142/68; PULSE 91; RESP 17; TEMP 99.5; O2SAT 97
[2017-08-05 20:50] VITALS: BP 142/65; PULSE 101; RESP 18; TEMP 96.7; O2SAT 96
[2017-08-05] MEDS: CYCLOBENZAPRINE HCL 10 MG TAB PO SCH (21:40)
[2017-08-06] VITALS: BP 148/72; PULSE 103; RESP 18; TEMP 97.8; O2SAT 96
[2017-08-06] MEDS ORDERED: BISACODYL EC 5 MG TABEC PO ONE (04:00)
[2017-08-06] MEDS ORDERED: POLYETHYLENE GLYCOL 17 GM PKG PO ONE (04:00)
[2017-08-06] MEDS: LEVOTHYROXINE SODIUM 25 MCG TAB PO SCH (05:13)
[2017-08-06] MEDS: LEVOTHYROXINE SODIUM 150 MCG TAB PO SCH (05:14)
[2017-08-06 05:26] LABS: MEAN CELL VOLUME 87.9 FL (80.0-100.0); MEAN CORPUSCULAR HEMOGLOBIN 29.9 PG (27.0-34.0); PLATELET COUNT 186 TH/MM3 (150-450); RED BLOOD COUNT 4.55 MIL/MM3 (4.50-5.90); RED CELL DISTRIBUTION WIDTH 14.8 % (11.6-17.2); REVIEW FLAG FINAL; WHITE BLOOD COUNT 10.3 TH/MM3 (4.0-11.0)
[2017-08-06] MEDS: SODIUM CHLOR 0.9% 1000 ML INJ 1,000 ML IV SCH ×2 (05:37→07:51)
[2017-08-06 05:51] LABS: BICARBONATE 31.1 MEQ/L (21.0-32.0); POTASSIUM 3.9 MEQ/L (3.5-5.1)
[2017-08-06] MEDS: DOCUSATE SODIUM 100 MG CAP PO SCH (07:57)
[2017-08-06] MEDS: POTASSIUM CHLORIDE 10 MEQ CONTROLLED RELEASE TAB PO SCH (07:57)
[2017-08-06] MEDS: SODIUM CHLORIDE 0.9% FLUSH 10 ML FLUSH IV FLUSH SCH (07:58)
[2017-08-06] MEDS: FUROSEMIDE 20 MG TAB PO SCH (07:58)
[2017-08-06] MEDS: ENOXAPARIN SODIUM 40 MG/0.4 ML SYRINGE SQ SCH (07:58)
[2017-08-06] MEDS: MULTIVITAMINS/MINERALS THERAPEUTIC TAB PO SCH (07:58)
[2017-08-06 08:00] VITALS: BP 148/78; PULSE 92; RESP 16; TEMP 97.1; O2SAT 95
[2017-08-06] MEDS: INSULIN ASPART SUPPLEMENTAL SCALE SQ SCH ×2 (08:00→12:00)
[2017-08-06] MEDS: glipiZIDE 5 MG TAB PO SCH (08:00)
[2017-08-06 08:02] VITALS: BP 148/78; PULSE 89; RESP 17; TEMP 97.1; O2SAT 95
--- NOTE | 2017-08-06 08:05 | PD.ORT.PN ---
Subjective Post Op Day #: 3 Subjective Remarks pain tolerable. doing better. Objective Vitals Vital Signs Date Time Temp Pulse Resp B/P (MAP) Pulse Ox O2 Delivery O2 Flow Rate FiO2 08/06/17 00:00 97.8 103 18 148/72 (97) 96 08/05/17 20:50 96.7 101 18 142/65 (90) 96 08/05/17 15:47 99.5 91 17 142/68 (92) 97 08/05/17 15:33 98 Nasal Cannula 2.00 08/05/17 11:34 97.8 91 19 130/60 (83) 98 08/05/17 11:24 Room Air 08/05/17 08:09 Nasal Cannula 1.00 I/O 08/05/17 08/05/17 08/05/17 08/06/17 08/06/17 08/06/17 07:00 15:00 23:00 07:00 15:00 23:00 Intake Total 240 ml 850 ml 360 ml 120 ml Output Total 450 ml 300 ml 500 ml Balance 240 ml 400 ml 60 ml -380 ml Intake Oral 240 ml 850 ml 360 ml 120 ml Output Urine Total 450 ml 300 ml 500 ml # Voids 2 1 1 # Bowel Movements 0 0 Result Diagram: 08/06/17 0404 08/06/17 0404 Objective Remarks in bed, nad dressing c/d/i neg homans nvi Assessment & Plan Ortho Post Op Day #: 3 Problem List: Assessment and Plan s/p R TKA wbat daily dressing changes lovenox d/c planning to snf - cleared today rx in chart 3001 signed f/up dr. whyte 2 weeks Luke Lugo Aug 06, 2017 08:05
[2017-08-06] MEDS: oxyCODONE/ACETAMINOPHEN 5 MG/325 MG TAB PO PRN (12:46)
--- NOTE | 2017-08-07 09:02 | MD ---
cc: SHIRAZ GILLIS M.D. ADMISSION DATE: 08/03/2017 DISCHARGE DATE: 08/06/2017 ADMISSION DIAGNOSIS Severe degenerative osteoarthritis right knee DISCHARGE DIAGNOSIS Severe degenerative osteoarthritis right knee HISTORY OF PRESENT ILLNESS Mr. Tineo is a 72-year-old male who has been a longstanding patient at the [facility]. He is currently being cared for by Dr. Shiraz Gillis regarding his severe and progressive right knee pain. He does have a history of a prior left total knee arthroplasty by Dr. Dioni Steven. Currently his right knee pain is inhibiting his activities of daily living. He has a severe constant aching sensation aggravated by weightbearing activities. He has no alleviating factors, although in the past, he has tried medications, bracing, physical therapy, home exercises, and corticosteroid injections without relief of his symptoms. He does have x-ray evidence of severe degenerative osteoarthritis of the right knee. While in the office, the patient was counseled on his diagnosis and treatment options. The risks, benefits, and indications all were discussed. The patient did elect to proceed with surgical intervention to include a right total knee arthroplasty. Date of surgery 08/03/2017, right total knee arthroplasty. Postop after surgery, the patient admitted to [facility] where he received appropriate medical management, pain control with DVT prophylaxis, and physical therapy. Discharge. Once being from the hospital, the patient was cleared to go to a group home facility. He is in stable condition. He may weight-bear as tolerated. The patient is to receive daily dressing changes and has been instructed on appropriate wound care management. The patient has been provided prescriptions for pain control, as well as DVT prophylaxis and medications. He has also been provided a follow-up appointment in approximately two weeks from day of surgery. The patient has asked appropriate questions which have been answered. The patient is cleared for discharge. Dictated by: Kody Lugo PA-C MD VANESSA Moore/MARCELL /8:05 AM /8:54 AM
== END 2017-08-06 12:52 | DRG 470 ==
LOC: HSDI 05:13 → N06A 11:27
PROVIDERS: ADMIT Orthopaedic Surgery Sports Medicine; ATTEND Orthopaedic Surgery Sports Medicine
PROC: 3E0T3BZ Introduction of Anesthetic Agent into Peripheral Nerves and Plexi, Percutaneous Approach (ICD-10-PCS; 2017-08-03)
PROC: 0SRC0J9 Replacement of Right Knee Joint with Synthetic Substitute, Cemented, Open Approach (ICD-10-PCS; principal; 2017-08-03 08:10)
DX: M17.11 Unilateral primary osteoarthritis, right knee (principal); E11.65 Type 2 diabetes mellitus with hyperglycemia; J44.9 Chronic obstructive pulmonary disease, unspecified; Z68.41 Body mass index [BMI] 40.0-44.9, adult; Z79.4 Long term (current) use of insulin; Z79.84 Long term (current) use of oral hypoglycemic drugs; E66.9 Obesity, unspecified; E78.5 Hyperlipidemia, unspecified; I25.10 Atherosclerotic heart disease of native coronary artery without angina pectoris; E03.9 Hypothyroidism, unspecified; H91.92 Unspecified hearing loss, left ear; G25.81 Restless legs syndrome; Z87.440 Personal history of urinary (tract) infections; Z87.891 Personal history of nicotine dependence; Z96.652 Presence of left artificial knee joint
CPT/HCPCS: 73560; 80048; 82948; 83036; 85027; 86850; 86900; 86901; 94150; C1776; J0330; J0690; J0735; J1100; J1580; J1650; J1815; J1885; J2270; J2405; J2795; J3010; J3370; J7030; J7050; J7120; L1830

== ENCOUNTER 2018-05-17 15:53 | Inpatient (IN) ==
--- NOTE | 2018-05-17 16:34 | XR ---
EXAM DATE: 05/17/2018 4:28 PM EDT AGE/SEX: 73 years / Male INDICATIONS: . Chest pain CLINICAL DATA: This is the patient's initial encounter. Patient reports that signs and symptoms have been present for 2 weeks and indicates a pain score of 1/10. MEDICAL/SURGICAL HISTORY: Diabetes mellitus type II. Hypertension. None. COMPARISON: POI, XR CHEST PA AND LAT, 04/13/2017. . FINDINGS: Frontal and lateral views of the chest demonstrate a normal size cardiac silhouette. No pleural effus ion, airspace consolidation, or pneumothorax is identified. The bones and soft tissues demonstrate no acute abnormality. There are degenerative changes throughout the thoracic spine. CONCLUSION: No acute cardiopulmonary abnormality is identified. Electronically signed by: Troy Askew MD 05/17/2018 4:33 PM EDT
[2018-05-17 17:15] LABS: Baso % (Auto) 0.6 % (0.0-2.0); Eos # (Auto) 0.2 th/mm3 (0.0-0.4); Eos % (Auto) 1.8 % (0.0-4.0); Hematocrit 53.6 % (39.0-51.0); Hemoglobin 17.9 gm/dL (13.0-17.0); Lymph # (Auto) 2.3 th/mm3 (1.0-4.8); Lymph % (Auto) 27.8 % (9.0-44.0); Mean Corpuscular HGB Conc 33.4 % (32.0-36.0); Mean Platelet Volume 10.7 fL (7.0-11.0); Mono # (Auto) 0.5 th/mm3 (0.0-0.9); Mono % (Auto) 6.1 % (0.0-8.0); Neut # (Auto) 5.2 th/mm3 (1.8-7.7); Neut % (Auto) 63.7 % (16.0-70.0); Platelet Count 166 th/mm3 (150-450); Red Blood Count 5.96 mil/mm3 (4.50-5.90); Red Cell Distribution Width 14.5 % (11.6-17.2); White Blood Count 8.2 th/mm3 (4.0-11.0)
[2018-05-17 17:32] LABS: Alanine Aminotransferase 34 U/L (12-78); Albumin 3.8 g/dL (3.4-5.0); Anion Gap 7 meq/L (5-15); Aspartate Aminotransferase 17 U/L (15-37); Blood Urea Nitrogen 15 mg/dL (7-18); Calcium 8.7 mg/dL (8.5-10.1); Carbon Dioxide 30.5 meq/L (21.0-32.0); Chloride 105 meq/L (98-107); Glomerular Filtration Rate 73 mL/min (>89); Glucose,Random 92 mg/dL (74-106); Potassium 4.4 meq/L (3.5-5.1); Sodium 142 meq/L (136-145)
[2018-05-17 17:36] LABS: Alkaline Phosphatase 79 U/L (45-117); Total Protein 7.5 g/dL (6.4-8.2)
--- NOTE | 2018-05-17 19:28 | ED ---
HPI General Chief Complaint: Chest Pain Stated Complaint: chest pain Time Seen by Provider: 05/17/18 18:54 Source: patient Mode of arrival: ambulatory Limitations: no limitations History of Present Illness HPI narrative: Patient is a 73-year-old male presented to emerge department for evaluation of chest pain. Patient states his been on and off for the last 4 months. 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 It started in his left anterior chest wall and radiated across. Patient was sent to the emergency department for evaluation. Patient states that when the pain started he became short of breath and had cold sweats. Patient does not quantify his pain. Patient states that he still has the pain now. He reports that he is supposed to have an aortic valve replacement performed. He also reports that he is going to have a heart cath tomorrow. Symptom onset has been gradual, symptoms are intermittent and moderate in nature. There are no alleviating factors. Symptoms started when patient was at rest. MD complaint: chest pain Complete Quality Measures for STEMI Alert Patients STEMI Alert: No Onset (ago): hour(s) Duration: constant Onset: during rest Pain location: substernal, left chest and right chest Severity: moderate Quality: tightness Pain radiation: none Relieving factors: nothing Exacerbating factors: nothing Associated symptoms: diaphoresis and dyspnea Treatments prior to arrival chest pain: none Related Data Allergies Allergy/AdvReac Type Severity Reaction Status Date / Time doxycycline Allergy Severe POSSIBLE Verified 09/10/17 10:45 REACTION OF REDNESS, FEELING OF ON FIRE ibuprofen Allergy Severe CHEST PAIN Verified 09/10/17 10:45 minocycline Allergy Severe POSSIBLE Verified 09/10/17 10:45 REACTION OF REDNESS, FEELING OF ON FIRE niacin Allergy Severe REDNESS,FELT Verified 09/10/17 10:45 LIKE i WAS ON FIRE Tetracyclines Allergy Severe Burning Verified 09/10/17 10:45 tigecycline Allergy Severe POSSIBLE Verified 09/10/17 10:45 REACTION OF REDNESS, FEELING OF ON FIRE Review of Systems ROS: all other systems reviewed are negative PMFSH History History Provided By: Patient Medical History Medical History Aortic valve stenosis (Chronic) CAD (coronary artery disease) (Chronic) COPD (chronic obstructive pulmonary disease) (Chronic) Hyperlipidemia (Chronic) Hypertension (Chronic) Hypothyroidism (Chronic) Restless leg syndrome (Chronic) Type 2 diabetes mellitus (Chronic) Social History Social History Smoking Status: Former smoker How Often Do You Have a Drink Containing Alcohol: Monthly or less Recent Travel in [facility] within the Last 8 Weeks: No Recent Out of Country Travel within the Last 8 Weeks: No Exam Narrative Exam Narrative: GENERAL: Overweight, well-developed, alert elderly gentleman. Presenting in no acute distress. SKIN: Focused skin assessment warm/dry. HEAD: Atraumatic. Normocephalic. EYES: Pupils equal and round. No scleral icterus. No injection or drainage. ENT: No nasal bleeding or discharge. Mucous membranes pink and moist. NECK: Trachea midline. No JVD. CARDIOVASCULAR: Regular rate and rhythm. No murmur appreciated. RESPIRATORY: No accessory muscle use. Clear to auscultation. Breath sounds equal bilaterally. GASTROINTESTINAL: Abdomen soft, non-tender, nondistended. Hepatic and splenic margins not palpable. MUSCULOSKELETAL: No obvious deformities. No clubbing. No cyanosis. No edema. NEUROLOGICAL: Awake and alert. No obvious cranial nerve deficits. Motor grossly within normal limits. Normal speech. PSYCHIATRIC: Appropriate mood and affect; insight and judgment normal. Course Initial Documented Vital Signs Temperature 97.4 F L 05/17/18 16:00 Pulse Rate 53 L 05/17/18 16:00 Respiratory Rate 05/17/18 16:00 Blood Pressure 180/83 H 05/17/18 16:00 Pulse Oximetry 96 05/17/18 16:00 Last Documented Vital Signs Temperature 97.4 F L 05/17/18 16:00 Pulse Rate 53 L 05/17/18 16:00 Respiratory Rate 05/17/18 16:00 Blood Pressure 180/83 H 05/17/18 16:00 Pulse Oximetry 96 05/17/18 16:00 Clinical Decision Support HEART Score Questions History: Highly suspicious EKG: Non-specific repolarization disturbance Age: 65 years+ Risk Factors: 3 or more Risk Factors or Hx of Atherosclerotic Disease Initial Troponin: Normal Limit Heart Score HEART Score: 7 7 Medical Decision Making MICHELLE Attestation MICHELLE supervised visit: Yes Attestation: I, Dr. Marin, have reviewed the advance practice practitioner's documentation and am in agreement, met with the patient face to face, made the diagnosis, and the medical decision making was done by me. The patient was initially evaluated by Maude, the LAPIDARY APPRENTICE. Please see their complete history and physical. 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 The patient has a prior history of coronary artery disease with stent placement, and a history of aortic stenosis. The patient's examination is remarkable for a systolic murmur best audible at the second intercostal space right side consistent with his aortic valvular stenosis, heart rate in the 50s with a regular rhythm. During the course of the patient's emergency department visit, the patient's history, examination, and differential diagnosis were reviewed with the patient. The patient was placed on a medical transcription with oximetry and frequent blood pressure monitoring. The patient had IV access obtained and blood work sent for analysis. The patient was initially provided aspirin and nitroglycerin. The patient's laboratory studies were reviewed and remarkable for a white count of 8.2, hemoglobin 17.9, platelets 166 with a normal differential, PT 10.2, PTT 27.8, chemistry is remarkable for a GFR of 73, initial set of cardiac enzymes within normal limits. Radiology studies were reviewed and remarkable for a chest xray that shows no acute abnormality. The patient's results were discussed with the patient, including the plan of care. I explained that further testing and/ or monitoring is indicated based on the patient's history, examination, and/ or laboratory findings. Therefore, I recommended admission for additional evaluation. The patient expressed understanding and was agreeable with this plan. The patient was admitted to the hospital in stable condition and sent to a bed under the care of the hospitalist service. MDM Narrative Medical decision making narrative: Patient is a 73-year-old male presenting to the emergency department for evaluation of chest pain. Patient is mildly hypertensive on arrival, labs and imaging were ordered while patient was waiting in triage. Labs reviewed, cardiac enzymes negative 1 set. Aspirin nitro paste ordered. Initial EKG was reviewed showed sinus bradycardia with a rate of 56. Labs reviewed, elevated hgb otherwise no acute abnormalities noted. Troponin neg x [address] Quinteros who recommended heparin drip with bolus and admit to medicine. Order placed for hep gtt. Dr. Chilel accepted admit, orders placed. Medical Screen Exam Complete: Yes Emergency Medical Condition: Yes Differential Diagnosis Differential Diagnosis: ACS versus USA versus metabolic abnormality versus COPD exacerbation versus cardiac arrhythmia versus other Medical Records Medical records reviewed: Yes I reviewed the patient's medical records. Lab Data Lab results reviewed: Yes I reviewed the patient's lab results. Result diagrams: 05/17/18 16:13 05/17/18 16:13 Lab Results 05/17/18 05/17/18 05/17/18 Range/Units 16:13 16:13 19:20 WBC 8.2 (4.0-11.0) th/mm3 RBC 5.96 H (4.50-5.90) mil/mm3 Hgb 17.9 H (13.0-17.0) gm/dL Hct 53.6 H (39.0-51.0) % MCV 90.0 (80.0-100.0) fL MCH 30.0 (27.0-34.0) pg MCHC 33.4 (32.0-36.0) % RDW 14.5 (11.6-17.2) % Plt Count 166 (150-450) th/mm3 MPV 10.7 (7.0-11.0) fL Neut % (Auto) 63.7 (16.0-70.0) % Lymph % (Auto) 27.8 (9.0-44.0) % [place] % (Auto) 6.1 (0.0-8.0) % Eos % (Auto) 1.8 (0.0-4.0) % Baso % (Auto) 0.6 (0.0-2.0) % Neut # (Auto) 5.2 (1.8-7.7) th/mm3 Lymph # (Auto) 2.3 (1.0-4.8) th/mm3 [place] # (Auto) 0.5 (0.0-0.9) th/mm3 Eos # (Auto) 0.2 (0.0-0.4) th/mm3 Baso # (Auto) 0.0 (0.0-0.2) th/mm3 WBC Differential . Differential Comment Auto diff final Sodium 142 (136-145) meq/L Potassium 4.4 (3.5-5.1) meq/L Chloride 105 (98-107) meq/L Carbon Dioxide 30.5 (21.0-32.0) meq/L Anion Gap 7 (5-15) meq/L BUN 15 (7-18) mg/dL Creatinine 1.00 (0.60-1.30) mg/dL Estimated GFR 73 L (>89) mL/min Random Glucose 92 (74-106) mg/dL Calcium 8.7 (8.5-10.1) mg/dL Total Bilirubin 0.4 (0.2-1.0) mg/dL AST 17 (15-37) U/L ALT 34 (12-78) U/L Alkaline Phosphatase 79 (45-117) U/L Troponin I Less than 0.02 L Less than 0.02 L (0.02-0.05) ng/mL Total Protein 7.5 (6.4-8.2) g/dL Albumin 3.8 (3.4-5.0) g/dL Imaging Data Radiologist's impression: Chest X-Ray 05/17/18 16:07 CONCLUSION: No acute cardiopulmonary abnormality is identified. Discharge Plan Discharge Disposition Patient Disposition: 30 Still Patient Discharge Condition Condition: Stable Discharge Details Diagnosis: Chest pain Physicians Team ED Provider: Marbella Marin ED Midlevel Provider: Maude Mckeon Primary Care Provider: Khang Del Angel Discharge Instructions Patient Printed Instructions: Chest Pain (ED) Discharge Interventions Interventions: Vital Signs Last Done: 05/17/18 16:00 Status ED Status: Admitted Patient
[2018-05-17] MEDS ORDERED: Heparin 10,000 UNITS/10 ML Vial (for IV use) IV.PUSH STA (20:20)
[2018-05-17] MEDS ORDERED: Bisacodyl 10 MG Supp RECTAL PRN (22:29)
[2018-05-17] MEDS ORDERED: Dextrose 50% in Water 50 ML Vial IV.PUSH PRN (22:41)
--- NOTE | 2018-05-17 22:44 | P.HP ---
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 The patient reports he was having a routine evaluation with his shipping receiving clerk, Dr. Kenia Hinton when his chest pain that has been present for the past 4 weeks acutely worsened. The patient states he has a chest tightness and a stabbing sensation that radiates to his back between his shoulder blades. He has shortness of breath that is at baseline. He denies any fever/chills. No abdominal pain. No nausea/vomiting/ diarrhea. No lateralizing signs/symptoms. Inpatient Certification: I certify that the inpatient services were ordered in accordance with Medicare regulations governing the order. This includes certification that hospital inpatient services are reasonable and necessary and in the case of services not specified as inpatient-only under 42 CFR 419.22(n), that they are appropriately provided as inpatient services in accordance to with the 2-midnight benchmark under 43 CFR 412.3(e) Review of Systems All other systems reviewed negative except as stated in HPI PMFSH - History History Provided By: Patient - Medical History Medical History: Medical History (Last Reviewed 05/17/18 @ 19:26 by LANI Diego) Aortic valve stenosis CAD (coronary artery disease) COPD (chronic obstructive pulmonary disease) Hyperlipidemia Hypertension Hypothyroidism Restless leg syndrome Type 2 diabetes mellitus - Surgical History Surgical History: Surgical History (Last Updated 05/17/18 @ 22:39 by Leandra Chilel MD) History of appendectomy History of cholecystectomy History of knee surgery History of mastectomy - Tobacco History Tobacco Use In Past 30 Days: No Smoking Status: Former smoker - Alcohol History How Often Do You Have a Drink Containing Alcohol: Monthly or less - Travel History Recent Travel in the [place] Within the Last 8 Weeks: No Recent Travel Out of the Country Within the Last 8 Weeks: No - Immunization History Tetanus Immunization: >5 Years Hx Influenza Vaccine This Season: No Medications and Allergies Active Medications: Active Medications Heparin Sodium/Dextrose (Heparin/D5w 25,000 U/250 Ml) 25,000 unit in 250 mls @ 0 mls/hr IV.CONT TITRATE PRN; Protocol PRN Reason: Per Protocol Allergies Allergy/AdvReac Type Severity Reaction Status Date / Time doxycycline Allergy Severe POSSIBLE Verified 09/10/17 10:45 REACTION OF REDNESS, FEELING OF ON FIRE ibuprofen Allergy Severe CHEST PAIN Verified 09/10/17 10:45 minocycline Allergy Severe POSSIBLE Verified 09/10/17 10:45 REACTION OF REDNESS, FEELING OF ON FIRE niacin Allergy Severe REDNESS,FELT Verified 09/10/17 10:45 LIKE i WAS ON FIRE Tetracyclines Allergy Severe Burning Verified 09/10/17 10:45 tigecycline Allergy Severe POSSIBLE Verified 09/10/17 10:45 REACTION OF REDNESS, FEELING OF ON FIRE Exam Vital signs: Vital Signs 05/17/18 16:00 Temperature 97.4 F L Pulse Rate 53 L Respiratory Rate 19 Blood Pressure 180/83 H Pulse Oximetry 96 Intake & Output 05/17/18 05/17/18 05/18/18 06:59 18:59 06:59 Weight 103.419 kg Narrative: Gen.: No acute distress Head: Normocephalic. Atraumatic. EENT: Pupils equal round and reactive to light. Nose without drainage. Airway intact. Throat without injection. Cardiovascular: Regular rate and rhythm. 4/5 murmur consistent with aortic stenosis. Respiratory: Lungs clear to auscultation bilaterally. No wheezes or rhonchi. Abdomen: Soft, nontender, nondistended. No peritoneal signs. Musculoskeletal: No gross deformities. No edema. Skin: No obvious rashes or erythema. Neuro: Sensory and motor grossly intact. Cranial nerves II through XII grossly intact. Results - Labs CBC & Chem 7: 05/17/18 16:13 05/17/18 16:13 Labs: Laboratory Results - last 24 hr 05/17/18 05/17/18 05/17/18 16:13 16:13 19:20 WBC 8.2 RBC 5.96 H Hgb 17.9 H Hct 53.6 H MCV 90.0 MCH 30.0 MCHC 33.4 RDW 14.5 Plt Count 166 MPV 10.7 Neut % (Auto) 63.7 Lymph % (Auto) 27.8 [place] % (Auto) 6.1 Eos % (Auto) 1.8 Baso % (Auto) 0.6 Neut # (Auto) 5.2 Lymph # (Auto) 2.3 [place] # (Auto) 0.5 Eos # (Auto) 0.2 Baso # (Auto) 0.0 WBC Differential . Differential Comment Auto diff final Sodium 142 Potassium 4.4 Chloride 105 Carbon Dioxide 30.5 Anion Gap 7 BUN 15 Creatinine 1.00 Estimated GFR 73 L Random Glucose 92 Calcium 8.7 Total Bilirubin 0.4 AST 17 ALT 34 Alkaline Phosphatase 79 Troponin I Less than 0.02 L Less than 0.02 L Total Protein 7.5 Albumin 3.8 - Imaging Impressions Chest X-Ray 05/17/18 16:07 CONCLUSION: No acute cardiopulmonary abnormality is identified. Caprini VTE Risk Assessment Caprini VTE Risk Assessment: Moderate/High Risk (score >= 2) Caprini Risk Assessment Model: Point Value = 1 Point Value = 2 Point Value = 3 Point Value = 5 Age 41-60 Minor surgery BMI > 25 kg/m2 Swollen legs Varicose veins or History of unexplained or recurrent spontaneous Oral contraceptives or hormone replacement Sepsis (< 1 month) Serious lung disease, including pneumonia (< 1 month) Abnormal pulmonary function Acute myocardial infarction Congestive heart failure (< 1 month) History of inflammatory bowel disease Medical patient at bed rest Age 61-74 Arthroscopic surgery Major open surgery (> 45 min) Laparoscopic surgery (> 45 min) Malignancy Confined to bed (> 72 hours) Immobilizing plaster cast Central venous access Age >= 75 History of VTE Family history of VTE Factor V Leiden Prothrombin [id number] Lupus anticoagulant Anticardiolipin antibodies Elevated serum homocysteine Heparin-induced thrombocytopenia Other congenital or acquired thrombophilia Stroke (< 1 month) Elective arthroplasty Hip, pelvis, or leg fracture Acute spinal cord injury (< 1 month) Prophylaxis Regimen: Total Risk Factor Score Risk Level Prophylaxis Regimen 0-1 Low Early ambulation 2 Moderate Order ONE of the following: *Sequential Compression Device (SCD) *Heparin 5000 units SQ BID 3-4 Higher Order ONE of the following medications: *Heparin 5000 units SQ TID *Enoxaparin/Lovenox 40 mg SQ daily (WT < 150 kg, CrCl > 30 mL/min) *Enoxaparin/Lovenox 30 mg SQ daily (WT < 150 kg, CrCl > 10-29 mL/min) *Enoxaparin/Lovenox 30 mg SQ BID (WT < 150 kg, CrCl > 30 mL/min) AND/OR *Sequential Compression Device (SCD) 5 or more Highest Order ONE of the following medications: *Heparin 5000 units SQ TID (Preferred with Epidurals) *Enoxaparin/Lovenox 40 mg SQ daily (WT < 150 kg, CrCl > 30 mL/min) *Enoxaparin/Lovenox 30 mg SQ daily (WT < 150 kg, CrCl > 10-29 mL/min) *Enoxaparin/Lovenox 30 mg SQ BID (WT < 150 kg, CrCl > 30 mL/min) AND *Sequential Compression Device (SCD) Assessment and Plan - Plan Assessment/plan: 1. Chest pain Patient complains of a stabbing pain that radiates to his back CTA pending to evaluate for dissection ACS rule out pending EKG without signs of ischemia, personally reviewed Troponin x2 negative Patient's shipping receiving clerk, Dr. Santos, consulted -appreciate recommendations Heparin drip 2. Diabetes mellitus Sliding scale insulin Monitor blood glucose 3. Aortic stenosis Patient currently being evaluated for surgical intervention Continue outpatient follow-up 4. COPD/PAKO Continue home CPAP 5. Hypertension/hyperlipidemia/hypothyroidism/restless leg syndrome Continue home medications once reconciled FEN N.p.o. Electrolytes: Monitor and replete as needed Heparin drip
[2018-05-17] MEDS: Heparin Drip 25,000 UNIT/250 ML BAG IV.CONT PRN (23:02)
--- NOTE | 2018-05-18 00:27 | CT ---
EXAM DATE: 05/18/2018 12:15 AM EDT AGE/SEX: 73 years / Male INDICATIONS: Stabbing chest pain between shoulder blades. Evaluate for aneurysm. CLINICAL DATA: This is the patient's initial encounter. Patient reports that signs and symptoms have been present for 1 day and indicates a pain score of 7/10. MEDICAL/SURGICAL HISTORY: Cardiovascular disease. Chronic obstructive pulmonary disease. Hyperten amilcar. Type 2 Diabetes. Appendectomy. Cholecystectomy. RADIATION DOSE: 9.71 CTDI (mGy) COMPARISON: No prior exams available for comparison. TECHNIQUE: Volumetric scanning was performed using a multi-row detector CT scanner during bolus infu amilcar of 99 ml Omnipaque 350 (iohexol) nonionic water-soluble contrast as a single exam dose. The da ta was post processed with a variety of visualization algorithms including full volume maximum intens ity projection, multi-planar sliding thin slab reformation, curved planar reformation, and surface re ndering techniques. Using automated exposure control and adjustment of the mA and/or kV according to patient size, radiation dose was kept as low as reasonably achievable to obtain optimal diagnostic q uality images. DICOM format image data is available electronically for review and comparison. FINDINGS: There is mild to moderate atherosclerotic change in the aorta and branches including the coronary art eries. No evidence for aneurysm or dissection. No aortic or iliac stenosis identified. No acute findings within the abdomen and pelvis. Colonic diverticulosis without diverticulitis. Lungs are clear. No pleural or pericardial effusion. No adenopathy. CONCLUSION: 1. CTA negative for thoracic or abdominal aortic aneurysm or dissection. Moderate atherosclerotic ch gisela present including within the coronary arteries. Electronically signed by: Ramón Villa MD 05/18/2018 12:26 AM EDT
[2018-05-18] MEDS: Sod Chloride 0.9% Inj 1,000 ML IV.CONT SCH ×3 (02:02→09:24)
[2018-05-18] MEDS: Insulin NovoLOG Aspart Correctional Sugar Inj SQ SCH ×5 (03:07→21:08)
[2018-05-18 05:02] LABS: Baso # (Auto) 0.1 th/mm3 (0.0-0.2); Baso % (Auto) 0.8 % (0.0-2.0); Eos # (Auto) 0.1 th/mm3 (0.0-0.4); Eos % (Auto) 1.5 % (0.0-4.0); Hematocrit 49.1 % (39.0-51.0); Hemoglobin 16.3 gm/dL (13.0-17.0); Lymph # (Auto) 2.1 th/mm3 (1.0-4.8); Lymph % (Auto) 30.3 % (9.0-44.0); Mean Corpuscular HGB Conc 33.2 % (32.0-36.0); Mean Corpuscular Hemoglobin 29.7 pg (27.0-34.0); Mean Corpuscular Volume 89.3 fL (80.0-100.0); Mean Platelet Volume 10.4 fL (7.0-11.0); Mono # (Auto) 0.4 th/mm3 (0.0-0.9); Mono % (Auto) 5.6 % (0.0-8.0); Neut # (Auto) 4.4 th/mm3 (1.8-7.7); Neut % (Auto) 61.8 % (16.0-70.0); Platelet Count 131 th/mm3 (150-450); White Blood Count 7.1 th/mm3 (4.0-11.0)
[2018-05-18 05:31] LABS: Anion Gap 8 meq/L (5-15); Blood Urea Nitrogen 13 mg/dL (7-18); Calcium 8.2 mg/dL (8.5-10.1); Carbon Dioxide 27.8 meq/L (21.0-32.0); Chloride 107 meq/L (98-107); Glomerular Filtration Rate Greater Than 89 mL/min (>89); Glucose,Random 86 mg/dL (74-106); Sodium 143 meq/L (136-145)
[2018-05-18] MEDS: Levothyroxine 150 MCG Tablet PO SCH (06:03)
--- NOTE | 2018-05-18 08:33 | P.CONCA ---
History of Present Illness Service: Cardiology Consult date: 05/18/18 Requesting Physician: Leandra Chilel Reason for Consult: Chest pain Primary Care Provider: Khang Del Angel MD, PhD Family Provider: ROMAIN SULLIVAN Chief Complaint: Chest pain History of Present Illness: The patient is a 73 year old male known to our practice with a cardiac history of severe aortic stenosis, ASHD, COPD, CHF with preserved EF, HTN, HLD, diabetes, sleep apnea and obesity. The patient presented to the hospital yesterday for three month follow up for aortic stenosis. He reported chest pressure and heaviness with exertion, lightheadedness upon standing and diaphoresis. While in the office, he developed chest pain that radiated to his left axilla and to his back, therefore, he was sent directly to the ER. Work up reveals negative troponin X 2, EKG negative for acute ischemic changes, CXR negative for acute cardiopulmonary process, CTA abdomen/pelvis negative for aneurysm or dissection, but does reveal coronary atherosclerosis, and H/H is elevated. He was started on heparin for concern for unstable angina. Vitals are stable. Today, on evaluation, he is laying flat without complaints. He denies CP or SOB currently. His primary complaint this morning is poor quality sleep due to restless leg syndrome. Review of Systems All other systems reviewed negative except as stated in HPI PMFSH - History History Provided By: Patient - Medical History Medical History: Medical History (Last Reviewed 05/17/18 @ 19:26 by LANI Diego) Aortic valve stenosis CAD (coronary artery disease) COPD (chronic obstructive pulmonary disease) Hyperlipidemia Hypertension Hypothyroidism Restless leg syndrome Type 2 diabetes mellitus - Surgical History Surgical History: Surgical History (Last Updated 05/17/18 @ 22:39 by Leandra Chilel MD) History of appendectomy History of cholecystectomy History of knee surgery History of mastectomy - Tobacco History Second Hand Smoke Exposure: No Tobacco Use In Past 30 Days: No Smoking Status: Former smoker Tobacco Type: Cigarettes - Alcohol History How Often Do You Have a Drink Containing Alcohol: Never - Substance Use History Substance History: No History of Abuse - Travel History Recent Travel in the [facility] Within the Last 8 Weeks: No Recent Travel Out of the Country Within the Last 8 Weeks: No - Immunization History Tetanus Immunization: >5 Years Hx Influenza Vaccine This Season: No Medications and Allergies Allergies Allergy/AdvReac Type Severity Reaction Status Date / Time doxycycline Allergy Severe POSSIBLE Verified 09/10/17 10:45 REACTION OF REDNESS, FEELING OF ON FIRE ibuprofen Allergy Severe CHEST PAIN Verified 09/10/17 10:45 minocycline Allergy Severe POSSIBLE Verified 09/10/17 10:45 REACTION OF REDNESS, FEELING OF ON FIRE niacin Allergy Severe REDNESS,FELT Verified 09/10/17 10:45 LIKE i WAS ON FIRE Tetracyclines Allergy Severe Burning Verified 09/10/17 10:45 tigecycline Allergy Severe POSSIBLE Verified 09/10/17 10:45 REACTION OF REDNESS, FEELING OF ON FIRE Home Medications Medication Instructions Recorded Confirmed Type albuterol sulfate [ProAir HFA] 2 puff INHALATION Q6H PRN 05/17/18 05/17/18 History aspirin 81 mg PO DAILY 05/17/18 05/17/18 History atorvastatin 20 mg PO DAILY 05/17/18 05/17/18 History diclofenac sodium 75 mg PO BID 05/17/18 05/17/18 History furosemide [Lasix] 20 mg PO DAILY 05/17/18 05/17/18 History glipizide 5 mg PO DAILY 05/17/18 05/17/18 History levothyroxine 150 mcg PO DAILY 05/17/18 05/17/18 History potassium chloride [Klor-Con] 20 meq PO BID 05/17/18 05/17/18 History vitamin B90-mygvd acid 1 tab PO DAILY 05/17/18 05/17/18 History vitamin E 400 unit PO DAILY 05/17/18 05/17/18 History ropinirole 1 mg PO DAILY 05/18/18 05/18/18 History ropinirole 2 mg PO HS 05/18/18 05/18/18 History Active Medications: Active Medications Acetaminophen (Tylenol) 650 mg PO Q4H PRN PRN Reason: Temp > 100.4 Al Hydroxide/Mg Hydroxide (Milk Of Magnesia Liq) 30 ml PO Q12H PRN PRN Reason: Mild Constipation Aspirin (Aspirin Chew) 81 mg PO DAILY [facility] Atorvastatin Calcium (Lipitor) 20 mg PO DAILY [facility] Bisacodyl (Dulcolax Supp) 10 mg RECTAL DAILY PRN PRN Reason: SEVERE CONSITIPATION Dextrose (D50w Vial) 50 ml IV.PUSH UNSCH PRN PRN Reason: PER HYPOGLYCEMIA PROTOCOL Furosemide (Lasix) 20 mg PO DAILY [facility] Glucagon (Glucagon Inj) 1 mg OTHER PRN PRN PRN Reason: for Hypoglycemia Protocol Heparin Sodium/Dextrose (Heparin/D5w 25,000 U/250 Ml) 25,000 unit in 250 mls @ 0 mls/hr IV.CONT TITRATE PRN; Protocol PRN Reason: Per Protocol Last Admin: 05/17/18 23:02 Dose: 1,000 units/hr, 10 mls/hr Sodium Chloride (Ns Inj) 1,000 mls @ 100 mls/hr IV.CONT .Q10H [facility] Last Admin: 05/18/18 02:12 Dose: 100 mls/hr Insulin Aspart (Novolog Insulin Correctional Sugar Inj) 0 unit SQ ACHS AND 3AM [facility]; Protocol Last Admin: 05/18/18 03:07 Dose: Not Given Lactulose (Lactulose Liq) 30 ml PO DAILY PRN PRN Reason: SEVERE CONSITIPATION Levothyroxine Sodium (Synthroid) 150 mcg PO DAILY@0700 [facility] Last Admin: 05/18/18 06:03 Dose: 150 mcg Ondansetron HCl (Zofran Inj) 4 mg IV.PUSH Q6H PRN PRN Reason: NAUSEA OR VOMITING Ropinirole HCl (Requip) 1 mg PO TID [facility] Last Admin: 05/18/18 02:01 Dose: Not Given Senna/Docusate Sodium (Joan-Colace) 1 tab PO BID [facility] Sennosides (Senokot) 17.2 mg PO Q12H PRN PRN Reason: Moderate Constipation Exam Vital signs: Vital Signs 05/17/18 16:00 05/17/18 23:00 05/18/18 01:13 Temperature 97.4 F L Pulse Rate 53 L 61 Respiratory Rate 19 15 15 Blood Pressure 180/83 H 168/85 H Pulse Oximetry 96 97 05/18/18 01:59 Temperature 97.6 F Pulse Rate 52 L Respiratory Rate 19 Blood Pressure 125/62 Pulse Oximetry 95 Intake & Output 05/17/18 05/18/18 05/18/18 18:59 06:59 18:59 Output Total 300 / 300 Balance -300 / -300 Weight 103.419 kg 103.419 kg Output: Urine 300 / 300 Other: # Voids 1 Date of Last Bowel Movement 05/17/18 Weight On Admission 103.419 kg - Constitutional no acute distress Comments: laying supine - Routine HEENT Exam Head: Present: normocephalic, atraumatic Eye: Present: EOMI ENT: Present: mucous membranes moist - Routine Neck Exam Present: supple - Routine Respiratory Exam Present: CTA bilaterally - Routine Cardiovascular Exam Present: RRR, murmur - Routine Abdominal Exam Present: soft - Routine Extremities Exam Comments: No edema - Routine Skin Exam Present: intact - Routine Neurological Exam Present: alert, oriented X3 Results 05/18/18 04:00 05/18/18 04:00 Cardiac Enzymes 05/17/18 05/17/18 Range/Units 16:13 19:20 AST 17 (15-37) U/L Troponin I Less than 0.02 L Less than 0.02 L (0.02-0.05) ng/mL Coagulation 05/18/18 Range/Units 07:12 APTT 60.9 H (24.3-30.1) sec CBC 05/17/18 05/18/18 Range/Units 16:13 04:00 WBC 8.2 7.1 (4.0-11.0) th/mm3 RBC 5.96 H 5.50 (4.50-5.90) mil/mm3 Hgb 17.9 H 16.3 (13.0-17.0) gm/dL Hct 53.6 H 49.1 (39.0-51.0) % Plt Count 166 131 L (150-450) th/mm3 Neut # (Auto) 5.2 4.4 (1.8-7.7) th/mm3 Lymph # (Auto) 2.3 2.1 (1.0-4.8) th/mm3 [place] # (Auto) 0.5 0.4 (0.0-0.9) th/mm3 Eos # (Auto) 0.2 0.1 (0.0-0.4) th/mm3 Baso # (Auto) 0.0 0.1 (0.0-0.2) th/mm3 Comprehensive Metabolic Panel 05/17/18 05/18/18 Range/Units 16:13 04:00 Sodium 142 143 (136-145) meq/L Potassium 4.4 4.0 (3.5-5.1) meq/L Chloride 105 107 (98-107) meq/L Carbon Dioxide 30.5 27.8 (21.0-32.0) meq/L BUN 15 13 (7-18) mg/dL Creatinine 1.00 0.77 (0.60-1.30) mg/dL Calcium 8.7 8.2 L (8.5-10.1) mg/dL AST 17 (15-37) U/L ALT 34 (12-78) U/L Alkaline Phosphatase 79 (45-117) U/L Total Protein 7.5 (6.4-8.2) g/dL Albumin 3.8 (3.4-5.0) g/dL Intake and Output 05/17/18 05/18/18 05/18/18 22:59 06:59 14:59 Output Total 300 / 300 Balance -300 / -300 Output: Urine 300 / 300 Other: # Voids 1 Date of Last Bowel Movement 05/17/18 Weight 103.419 kg 103.419 kg Weight On Admission 103.419 kg - Imaging and Cardiology Echo: other (In office echo 01/2018 EF 52%, LVH, LAE, MAC, Aortic cusp calcification, AV max PG 77 mmHg, JLUIS 0.5 cm2, trace MR, Mild TR, Trace PI, Severe ) EKG results: report reviewed, image reviewed - EKG Interpretation EKG: no acute changes EKG shows: bradycardia Assessment and Plan - Plan Assessment Unstable angina in a patient with known ASHD Symptomatic severe aortic stenosis Chronic CHF with preserved EF without evidence of exacerbation HTN HLD Diabetic COPD Sleep apnea Elevated H/H PLAN: Will plan for cardiac cath on . Unable to complete today due to CTA contrast exposure. Follow up BMP Continue IVF with close monitoring of fluid status. I/O and daily weights Continue heparin. Will discontinue 12 hour prior to cath. Follow up CBC Will favor slightly elevated BP due to severe . Check lipid panel Continue ASA The patient was seen and evaluated by Dr Santos who completed face to face encounter, physical exam and participated in evaluation and management. Risks of cath reviewed in detail including stroke foreseen and unforeseen complications
[2018-05-18] MEDS: Senna/Docusate Sodium 8.6/50 MG Tablet PO SCH ×2 (09:24→20:43)
[2018-05-18] MEDS: Furosemide 20 MG Tablet PO SCH (09:24)
--- NOTE | 2018-05-18 13:55 | ECG ---
Date Performed: 05/17/2018 Time Performed: 16:16:24 PTAGE: 73 years EKG: SINUS BRADYCARDIA Q waves V1,V2 are new since prior tracing Anterior infarct age undetermin ed PREVIOUS TRACING : 05/27/2007 12.36 DOCTOR: Georges Osorio Interpretating Date/Time 05/18/2018 13:53:37
--- NOTE | 2018-05-18 14:05 | ECG ---
Date Performed: 05/17/2018 Time Performed: 19:13:36 PTAGE: 73 years EKG: SINUS BRADYCARDIA MINIMAL VOLTAGE CRITERIA FOR LVH, CONSIDER NORMAL VARIANT SEPTAL MYOCARDI AL INFARCTION ABNORMAL ECG Since the PREVIOUS TRACING , no significant change noted PREVIOUS TRACIN05/17/2018 16.16 DOCTOR: Georges Osorio Interpretating Date/Time 05/18/2018 14:03:01
--- NOTE | 2018-05-18 14:28 | P.PN ---
Subjective Interval history: Nursing denies any deterioration since last night. Patient himself has no new chest pain. Looking forward to catheterization in 2 days. Physical Exam Vital signs: Vital Signs 05/17/18 16:00 05/17/18 23:00 05/18/18 01:13 Temperature 97.4 F L Pulse Rate 53 L 61 Respiratory Rate 19 15 15 Blood Pressure 180/83 H 168/85 H Pulse Oximetry 96 97 05/18/18 01:59 05/18/18 08:00 05/18/18 10:25 Temperature 97.6 F 97.7 F Pulse Rate 52 L 59 L 56 L Respiratory Rate 19 16 Blood Pressure 125/62 121/58 L Pulse Oximetry 95 97 05/18/18 11:55 05/18/18 12:01 Temperature 97.5 F L Pulse Rate 61 69 Respiratory Rate 18 Blood Pressure 140/65 Pulse Oximetry 97 Intake & Output 05/17/18 05/18/18 05/18/18 18:59 06:59 18:59 Intake Total 1000 / 1000 Output Total 300 / 300 Balance 700 / 700 Weight 103.419 kg 103.419 kg Intake: IV 1000 / 1000 NS Inj 1,000 ML @ 100 mls/hr IV 1000 / 1000 .CONT .Q10H [facility] Rx#:[id number] Output: Urine 300 / 300 Other: # Voids 1 Date of Last Bowel Movement 05/17/18 Weight On Admission 103.419 kg Narrative: Heart sounds regular rate rhythm, no murmurs Clear lungs bilaterally, unlabored bleeding No lower extremity edema Results - Labs CBC & Chem 7: 05/18/18 04:00 05/18/18 04:00 Laboratory Results - last 24 hr 05/17/18 05/17/18 05/17/18 16:13 16:13 19:20 WBC 8.2 RBC 5.96 H Hgb 17.9 H Hct 53.6 H MCV 90.0 MCH 30.0 MCHC 33.4 RDW 14.5 Plt Count 166 MPV 10.7 Neut % (Auto) 63.7 Lymph % (Auto) 27.8 [place] % (Auto) 6.1 Eos % (Auto) 1.8 Baso % (Auto) 0.6 Neut # (Auto) 5.2 Lymph # (Auto) 2.3 [place] # (Auto) 0.5 Eos # (Auto) 0.2 Baso # (Auto) 0.0 WBC Differential . Differential Comment Auto diff final APTT Sodium 142 Potassium 4.4 Chloride 105 Carbon Dioxide 30.5 Anion Gap 7 BUN 15 Creatinine 1.00 Estimated GFR 73 L POC Glucose Random Glucose 92 Calcium 8.7 Total Bilirubin 0.4 AST 17 ALT 34 Alkaline Phosphatase 79 Total Creatine Kinase Troponin I Less than 0.02 L Less than 0.02 L Total Protein 7.5 Albumin 3.8 05/17/18 05/18/18 05/18/18 19:20 02:41 04:00 WBC 7.1 RBC 5.50 Hgb 16.3 Hct 49.1 MCV 89.3 MCH 29.7 MCHC 33.2 RDW 14.0 Plt Count 131 L MPV 10.4 Neut % (Auto) 61.8 Lymph % (Auto) 30.3 [place] % (Auto) 5.6 Eos % (Auto) 1.5 Baso % (Auto) 0.8 Neut # (Auto) 4.4 Lymph # (Auto) 2.1 [place] # (Auto) 0.4 Eos # (Auto) 0.1 Baso # (Auto) 0.1 WBC Differential . Differential Comment Auto diff final APTT Sodium Potassium Chloride Carbon Dioxide Anion Gap BUN Creatinine Estimated GFR POC Glucose 87 Random Glucose Calcium Total Bilirubin AST ALT Alkaline Phosphatase Total Creatine Kinase 111 Troponin I Total Protein Albumin 05/18/18 05/18/18 05/18/18 04:00 07:12 12:47 WBC RBC Hgb Hct MCV MCH MCHC RDW Plt Count MPV Neut % (Auto) Lymph % (Auto) [place] % (Auto) Eos % (Auto) Baso % (Auto) Neut # (Auto) Lymph # (Auto) [place] # (Auto) Eos # (Auto) Baso # (Auto) WBC Differential Differential Comment APTT 60.9 H Sodium 143 Potassium 4.0 Chloride 107 Carbon Dioxide 27.8 Anion Gap 8 BUN 13 Creatinine 0.77 Estimated GFR Greater than 89 POC Glucose 160 H Random Glucose 86 Calcium 8.2 L Total Bilirubin AST ALT Alkaline Phosphatase Total Creatine Kinase Troponin I Total Protein Albumin 05/18/18 12:49 WBC RBC Hgb Hct MCV MCH MCHC RDW Plt Count MPV Neut % (Auto) Lymph % (Auto) [place] % (Auto) Eos % (Auto) Baso % (Auto) Neut # (Auto) Lymph # (Auto) [place] # (Auto) Eos # (Auto) Baso # (Auto) WBC Differential Differential Comment APTT 56.4 H Sodium Potassium Chloride Carbon Dioxide Anion Gap BUN Creatinine Estimated GFR POC Glucose Random Glucose Calcium Total Bilirubin AST ALT Alkaline Phosphatase Total Creatine Kinase Troponin I Total Protein Albumin - Imaging Impressions Chest X-Ray 05/17/18 16:07 CONCLUSION: No acute cardiopulmonary abnormality is identified. Thoracic Aorta CT 05/17/18 22:10 CONCLUSION: 1. CTA negative for thoracic or abdominal aortic aneurysm or dissection. Moderate atherosclerotic change present including within the coronary arteries. Assessment and Plan - Plan 73-year-old white male admitted for chest pain. Chest pain CTA is negative for any acute findings ACS rule out pending Patient's fuel handler, Dr. Santos, consulted -cath in 2 days planned CAD CHF w/ preserved EF -Continue home Lasix, start low-dose Coreg twice daily Hypertension/hyperlipidemia/hypothyroidism/restless leg syndrome Continue home Synthroid and ropinirole and Lipitor Diabetes mellitus Sliding scale insulin Aortic stenosis Patient currently being evaluated for surgical intervention Continue outpatient follow-up COPD/PAKO Continue home CPAP
[2018-05-19] MEDS: Heparin Drip 25,000 UNIT/250 ML BAG IV.CONT PRN (01:20)
[2018-05-19] MEDS: Insulin NovoLOG Aspart Correctional Sugar Inj SQ SCH ×5 (03:07→20:36)
[2018-05-19 03:26] LABS: Anion Gap 6 meq/L (5-15); Blood Urea Nitrogen 13 mg/dL (7-18); Calcium 8.6 mg/dL (8.5-10.1); Carbon Dioxide 29.1 meq/L (21.0-32.0); Chloride 107 meq/L (98-107); Cholesterol 123 mg/dL (120-200); Glomerular Filtration Rate Greater Than 89 mL/min (>89); Glucose,Random 126 mg/dL (74-106); Hematocrit 51.1 % (39.0-51.0); Mean Corpuscular HGB Conc 33.3 % (32.0-36.0); Mean Corpuscular Hemoglobin 29.6 pg (27.0-34.0); Mean Corpuscular Volume 88.8 fL (80.0-100.0); Mean Platelet Volume 10.4 fL (7.0-11.0); Platelet Count 131 th/mm3 (150-450); Potassium 3.9 meq/L (3.5-5.1); Red Blood Count 5.76 mil/mm3 (4.50-5.90); Red Cell Distribution Width 14.3 % (11.6-17.2); Sodium 142 meq/L (136-145); Triglycerides 123 mg/dL (42-150); White Blood Count 7.9 th/mm3 (4.0-11.0)
[2018-05-19 03:28] LABS: Chol/HDL Ratio 3.07 Ratio; LDL Cholesterol,Calculated 58 mg/dL (0-99)
[2018-05-19] MEDS: Levothyroxine 150 MCG Tablet PO SCH (06:21)
[2018-05-19] MEDS: Furosemide 20 MG Tablet PO SCH (09:24)
[2018-05-19] MEDS: Senna/Docusate Sodium 8.6/50 MG Tablet PO SCH ×2 (09:24→20:36)
--- NOTE | 2018-05-19 11:00 | P.PN ---
Subjective Interval history: Nursing denies any deterioration since last night. Patient has no complaints, no chest pain. Physical Exam Vital signs: Vital Signs 05/18/18 11:55 05/18/18 12:01 05/18/18 16:00 Temperature 97.5 F L 98.1 F Pulse Rate 61 69 70 Respiratory Rate 18 18 Blood Pressure 140/65 131/62 Pulse Oximetry 97 95 05/18/18 16:27 05/18/18 19:56 05/19/18 00:00 Temperature 98.1 F 97.8 F Pulse Rate 69 67 66 Respiratory Rate 22 22 Blood Pressure 123/64 191/86 H Pulse Oximetry 97 93 L 05/19/18 01:17 05/19/18 04:00 05/19/18 08:00 Temperature 98.0 F 98.7 F Pulse Rate 70 63 68 Respiratory Rate 21 20 Blood Pressure 170/77 H 174/83 H 198/86 H Pulse Oximetry 98 94 L Intake & Output 05/18/18 05/19/18 05/19/18 18:59 06:59 18:59 Intake Total 1000 / 1000 250 / 250 Output Total 300 / 300 300 / 300 Balance 700 / 700 -50 / -50 Weight 102.9 kg 101.4 kg Intake: IV 1000 / 1000 250 / 250 Heparin/D5W 25,000 U/250 mL 25, 250 / 250 000 unit In 250 ml @ Per Protocol IV.CONT TITRATE PRN Rx #:[id number] NS Inj 1,000 ML @ 100 mls/hr IV 1000 / 1000 .CONT .Q10H VERNON Rx#:[id number] Output: Urine 300 / 300 300 / 300 Other: Date of Last Bowel Movement 05/18/18 Narrative: 3/6 ejection murmur No lower extremity edema Clear lungs bilaterally, unlabored breathing Results - Labs CBC & Chem 7: 05/19/18 02:36 05/19/18 02:36 Laboratory Results - last 24 hr 05/18/18 05/18/18 05/18/18 12:47 12:49 18:05 WBC RBC Hgb Hct MCV MCH MCHC RDW Plt Count MPV APTT 56.4 H Sodium Potassium Chloride Carbon Dioxide Anion Gap BUN Creatinine Estimated GFR POC Glucose 160 H 114 H Random Glucose Calcium Triglycerides Cholesterol LDL Cholesterol, Calc HDL Cholesterol Cholesterol/HDL Ratio 05/18/18 05/18/18 05/19/18 19:33 20:41 02:36 WBC 7.9 RBC 5.76 Hgb 17.0 Hct 51.1 H MCV 88.8 MCH 29.6 MCHC 33.3 RDW 14.3 Plt Count 131 L MPV 10.4 APTT 48.3 H Sodium Potassium Chloride Carbon Dioxide Anion Gap BUN Creatinine Estimated GFR POC Glucose 202 H Random Glucose Calcium Triglycerides Cholesterol LDL Cholesterol, Calc HDL Cholesterol Cholesterol/HDL Ratio 05/19/18 05/19/18 05/19/18 02:36 02:36 03:04 WBC RBC Hgb Hct MCV MCH MCHC RDW Plt Count MPV APTT 41.6 H Sodium 142 Potassium 3.9 Chloride 107 Carbon Dioxide 29.1 Anion Gap 6 BUN 13 Creatinine 0.78 Estimated GFR Greater than 89 POC Glucose 137 H Random Glucose 126 H Calcium 8.6 Triglycerides 123 Cholesterol 123 LDL Cholesterol, Calc 58 HDL Cholesterol 40.0 Cholesterol/HDL Ratio 3.07 05/19/18 08:33 WBC RBC Hgb Hct MCV MCH MCHC RDW Plt Count MPV APTT Sodium Potassium Chloride Carbon Dioxide Anion Gap BUN Creatinine Estimated GFR POC Glucose 130 H Random Glucose Calcium Triglycerides Cholesterol LDL Cholesterol, Calc HDL Cholesterol Cholesterol/HDL Ratio Assessment and Plan - Plan 73-year-old white male admitted for chest pain. 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
--- NOTE | 2018-05-19 11:23 | P.PNCA ---
Subjective Interval history: The patient denies symptoms of chest pain, shortness of breath, palpitations, increased lower extremity edema or lightheadedness. He remains on heparin. Platelets are stable. He is currently on IVF. Weight is decreased from yesterday. Pending cardiac cath tomorrow. Physical Exam Vital signs: Vital Signs 05/18/18 11:55 05/18/18 12:01 05/18/18 16:00 Temperature 97.5 F L 98.1 F Pulse Rate 61 69 70 Respiratory Rate 18 18 Blood Pressure 140/65 131/62 Pulse Oximetry 97 95 05/18/18 16:27 05/18/18 19:56 05/19/18 00:00 Temperature 98.1 F 97.8 F Pulse Rate 69 67 66 Respiratory Rate 22 22 Blood Pressure 123/64 191/86 H Pulse Oximetry 97 93 L 05/19/18 01:17 05/19/18 04:00 05/19/18 08:00 Temperature 98.0 F 98.7 F Pulse Rate 70 63 68 Respiratory Rate 21 20 Blood Pressure 170/77 H 174/83 H 198/86 H Pulse Oximetry 98 94 L Intake & Output 05/18/18 05/19/18 05/19/18 18:59 06:59 18:59 Intake Total 1000 / 1000 250 / 250 Output Total 300 / 300 300 / 300 Balance 700 / 700 -50 / -50 Weight 102.9 kg 101.4 kg Intake: IV 1000 / 1000 250 / 250 Heparin/D5W 25,000 U/250 mL 25, 250 / 250 000 unit In 250 ml @ Per Protocol IV.CONT TITRATE PRN Rx #:[id number] NS Inj 1,000 ML @ 100 mls/hr IV 1000 / 1000 .CONT .Q10H [place]ERNON Rx#:[id number] Output: Urine 300 / 300 300 / 300 Other: Date of Last Bowel Movement 05/18/18 - Constitutional no acute distress - Routine HEENT Exam Head: Present: normocephalic - Routine Neck Exam Present: supple Comments: No JVD - Routine Respiratory Exam Present: wheezes, diminished air movement - Routine Cardiovascular Exam Present: RRR, murmur - Routine Abdominal Exam Present: soft - Routine Extremities Exam Comments: Trace pretibial edema. - Routine Skin Exam Present: intact - Routine Neurological Exam Present: alert, oriented X3 - Routine Psychiatric Exam Present: normal affect, normal thought process, good judgment Assessment and Plan - Plan Assessment Unstable angina in a patient with known ASHD Symptomatic severe aortic stenosis Chronic CHF with preserved EF without evidence of exacerbation HTN HLD Diabetic COPD with wheezing Sleep apnea Elevated H/H PLAN: Will plan for cardiac cath tomorrow Continue IVF with close monitoring of fluid status. I/O and daily weights Continue heparin. Will discontinue 12 hour prior to cath. Follow up CBC Will favor slightly elevated BP due to severe . Continue ASA Incentive spirometer and scheduled albuterol The patient was seen and evaluated by Dr Santos who completed face to face encounter, physical exam and participated in evaluation and management. Risks of cath reviewed in detail including stroke foreseen and unforeseen complications
--- NOTE | 2018-05-19 11:37 | ECG ---
Date Performed: 05/19/2018 Time Performed: 00:07:07 PTAGE: 73 years EKG: Sinus rhythm WITH SINUS ARRHYTHMIA NORMAL ECG PREVIOUS TRACING : 05/17/2018 19.13 DOCTOR: Stefano Duran Interpretating Date/Time 05/19/2018 11:34:59
[2018-05-19] MEDS ORDERED: amLODIPine 5 MG Tablet PO ONE (12:00)
[2018-05-19] MEDS ORDERED: fentaNYL Citrate Inj 100 MCG/2 ML Ampul IV.PUSH SCH (13:45)
[2018-05-19] MEDS ORDERED: diazePAM 5 MG Tablet PO SCH (13:45)
[2018-05-19] MEDS: Dextrose 5%/NaCl 0.9% Inj 1,000 ML IV.CONT SCH (15:59)
[2018-05-20] MEDS: Insulin NovoLOG Aspart Correctional Sugar Inj SQ SCH ×5 (03:17→22:06)
[2018-05-20 04:34] LABS: Baso % (Auto) 0.4 % (0.0-2.0); Eos # (Auto) 0.1 th/mm3 (0.0-0.4); Eos % (Auto) 1.6 % (0.0-4.0); Hematocrit 55.1 % (39.0-51.0); Hemoglobin 18.1 gm/dL (13.0-17.0); Lymph # (Auto) 1.8 th/mm3 (1.0-4.8); Lymph % (Auto) 24.4 % (9.0-44.0); Mean Corpuscular HGB Conc 32.9 % (32.0-36.0); Mean Corpuscular Hemoglobin 29.4 pg (27.0-34.0); Mean Corpuscular Volume 89.2 fL (80.0-100.0); Mean Platelet Volume 10.2 fL (7.0-11.0); Mono # (Auto) 0.5 th/mm3 (0.0-0.9); Mono % (Auto) 6.1 % (0.0-8.0); Neut % (Auto) 67.5 % (16.0-70.0); Platelet Count 132 th/mm3 (150-450); Red Blood Count 6.17 mil/mm3 (4.50-5.90); Red Cell Distribution Width 14.5 % (11.6-17.2); White Blood Count 7.4 th/mm3 (4.0-11.0)
[2018-05-20 04:43] LABS: Activated Partial Thrombo Time 23.3 sec (24.3-30.1); Prothrombin Time 10.3 sec (9.8-11.6)
[2018-05-20 05:01] LABS: Calcium 9.4 mg/dL (8.5-10.1); Carbon Dioxide 30.9 meq/L (21.0-32.0); Potassium 4.2 meq/L (3.5-5.1)
[2018-05-20] MEDS: Dextrose 5%/NaCl 0.9% Inj 1,000 ML IV.CONT SCH (06:05)
[2018-05-20] MEDS: Levothyroxine 150 MCG Tablet PO SCH (06:39)
--- NOTE | 2018-05-20 07:28 | P.PNIM ---
Subjective Interval history: Patient doing well, tolerated PO until NPO at midnight. Patient denies CP and SOB. No overnight concerns. Physical Exam Vital signs: Vital Signs 05/19/18 08:00 05/19/18 09:20 05/19/18 11:50 Temperature 98.7 F 98.8 F Pulse Rate 68 63 66 Respiratory Rate 20 18 Blood Pressure 198/86 H 172/93 H Pulse Oximetry 94 L 96 05/19/18 15:00 05/19/18 16:00 05/19/18 17:00 Temperature 98.4 F Pulse Rate 59 L 62 67 Respiratory Rate 16 Blood Pressure 162/75 H Pulse Oximetry 98 05/19/18 18:00 05/19/18 19:00 05/19/18 19:15 Temperature 98 F Pulse Rate 55 L 59 L 59 L Respiratory Rate 22 Blood Pressure 168/70 H Pulse Oximetry 97 05/19/18 20:00 05/19/18 21:00 05/19/18 22:00 Temperature Pulse Rate 58 L 58 L 54 L Respiratory Rate Blood Pressure Pulse Oximetry 05/19/18 23:00 05/20/18 00:00 05/20/18 01:00 Temperature 97.9 F Pulse Rate 57 L 58 L 70 Respiratory Rate 22 Blood Pressure 170/70 H Pulse Oximetry 97 05/20/18 02:00 05/20/18 03:00 05/20/18 04:00 Temperature 97.7 F Pulse Rate 60 60 52 L Respiratory Rate 22 Blood Pressure 156/71 H Pulse Oximetry 97 05/20/18 05:00 05/20/18 06:00 Temperature Pulse Rate 50 L 56 L Respiratory Rate Blood Pressure Pulse Oximetry Intake & Output 05/19/18 05/20/18 05/20/18 18:59 06:59 18:59 Intake Total 120 / 120 Output Total 900 / 900 900 / 900 Balance -900 / -900 -780 / -780 Weight 101.4 kg 100.5 kg Intake: Oral 120 / 120 Output: Urine 900 / 900 900 / 900 Other: Date of Last Bowel Movement 05/18/18 05/18/18 Narrative: GENERAL: pleasant, lying comfortably in bed, in NAD. SKIN: Warm and dry. HEAD: Normocephalic. EYES: No scleral icterus. No injection or drainage. NECK: Supple, trachea midline. No JVD or lymphadenopathy. CARDIOVASCULAR: Regular rate and rhythm, 3/6 systolic ejection murmur over aortic region. RESPIRATORY: Breath sounds equal bilaterally. No accessory muscle use. GASTROINTESTINAL: Abdomen soft, non-tender, nondistended. MUSCULOSKELETAL: No cyanosis, or edema. BACK: Nontender without obvious deformity. No CVA tenderness. Results - Labs CBC & Chem 7: 05/20/18 03:26 05/20/18 03:26 Laboratory Results - last 24 hr 05/19/18 05/19/18 05/19/18 08:33 12:03 16:02 WBC RBC Hgb Hct MCV MCH MCHC RDW Plt Count MPV Neut % (Auto) Lymph % (Auto) [place] % (Auto) Eos % (Auto) Baso % (Auto) Neut # (Auto) Lymph # (Auto) [place] # (Auto) Eos # (Auto) Baso # (Auto) WBC Differential Differential Comment PT INR APTT Sodium Potassium Chloride Carbon Dioxide Anion Gap BUN Creatinine Estimated GFR POC Glucose 130 H 194 H 157 H Random Glucose Calcium 05/19/18 05/20/18 05/20/18 20:14 03:16 03:26 WBC 7.4 RBC 6.17 H Hgb 18.1 H Hct 55.1 H MCV 89.2 MCH 29.4 MCHC 32.9 RDW 14.5 Plt Count 132 L MPV 10.2 Neut % (Auto) 67.5 Lymph % (Auto) 24.4 [place] % (Auto) 6.1 Eos % (Auto) 1.6 Baso % (Auto) 0.4 Neut # (Auto) 5.0 Lymph # (Auto) 1.8 [place] # (Auto) 0.5 Eos # (Auto) 0.1 Baso # (Auto) 0.0 WBC Differential . Differential Comment Auto diff final PT INR APTT Sodium Potassium Chloride Carbon Dioxide Anion Gap BUN Creatinine Estimated GFR POC Glucose 173 H 119 H Random Glucose Calcium 05/20/18 05/20/18 03:26 03:26 WBC RBC Hgb Hct MCV MCH MCHC RDW Plt Count MPV Neut % (Auto) Lymph % (Auto) [place] % (Auto) Eos % (Auto) Baso % (Auto) Neut # (Auto) Lymph # (Auto) [place] # (Auto) Eos # (Auto) Baso # (Auto) WBC Differential Differential Comment PT 10.3 INR 1.0 APTT 23.3 L D Sodium 143 Potassium 4.2 Chloride 104 Carbon Dioxide 30.9 Anion Gap 8 BUN 11 Creatinine 0.89 Estimated GFR 83 L POC Glucose Random Glucose 130 H Calcium 9.4 D Assessment and Plan - Assessment (1) Unstable angina Code(s): I20.0 - Unstable angina Status: Acute (2) Diabetes Code(s): E11.9 - Type 2 diabetes mellitus without complications Status: Chronic (3) Hypertension Code(s): I10 - Essential (primary) hypertension Status: Chronic (4) Aortic stenosis Code(s): I35.0 - Nonrheumatic aortic (valve) stenosis Status: Chronic - Plan 73-year-old CM with PMHx of CHF and severe admitted for chest pain, found to have unstable angina, plan for cardiac cath today, doing well, HD#3 1. Chest pain - Unstable angina CTA is negative for any acute findings Symptomatic severe aortic stenosis Chronic CHF with preserved EF without evidence of exacerbation, Dr. Santos, consulted -cath TODAY Will favor slightly elevated BP due to severe per Cards Continue ASA, Heparin held for surgery 2. Hx of CAD, CHF w/ preserved EF -Continue home Lasix and K, cont. Coreg 3. Hypertension Elevated, asymptomatic at this time, will favor slightly elevated BP due to severe per Cards cont. Norvasc and Coreg 4. Hyperlipidemia cont. Statin 5. Hypothyroidism cont. Synthroid 6. RLS cont. Ropinirole 7. Diabetes mellitus Sliding scale insulin BS 157, 173, 119 8. Aortic stenosis Patient currently being evaluated for surgical intervention Continue outpatient follow-up 9. COPD/PAKO Continue home CPAP 10. Elevated H/H 11. DVT PPX- heparin held due to cath today (2) Diabetes Qualifiers: Diabetes mellitus type: type 2
[2018-05-20] MEDS: Senna/Docusate Sodium 8.6/50 MG Tablet PO SCH ×2 (08:38→21:28)
[2018-05-20] MEDS: amLODIPine 5 MG Tablet PO SCH (08:38)
[2018-05-20] MEDS: Furosemide 20 MG Tablet PO SCH (08:38)
[2018-05-20] MEDS ORDERED: fentaNYL Citrate Inj 100 MCG/2 ML Ampul ONE (12:00)
[2018-05-20] MEDS ORDERED: Heparin/NS PF Inj 1,500 ML ONE (12:00)
[2018-05-20] MEDS ORDERED: Iohexol 350 MG/ML 50 ML Vial (for Cath Lab) IVCONTRAST ONE (14:55)
[2018-05-20] MEDS ORDERED: Dextrose 50% in Water 50 ML Vial IV.PUSH PRN (15:17)
[2018-05-20] MEDS ORDERED: Sodium Chloride 0.9% Irr Bot 500 ML, ceFAZolin Inj 500 MG IRRIGATION SCH ×2 (15:30)
[2018-05-20] MEDS ORDERED: Sodium Chlor 0.9% Inj 77.5 ML, Papaverine Inj 60 MG, Nitroglycerin Inj 100 MCG, dilTIAZ... IRRIGATION SCH ×3 (15:30)
[2018-05-20] MEDS ORDERED: Chlorhexidine 4% Topical 120 APPLIC/120 ML Bottle TOPICAL SCH (15:30)
--- NOTE | 2018-05-20 15:45 | P.PNCV ---
- Note Subjective/Hospital Course: pt seen and evaluated / sts data discussed with pt RISK SCORES About the STS Risk Calculator Procedure: AV Replacement + CAB Risk of Mortality: 3.448% Morbidity or Mortality: 21.576% Long Length of Stay: 13.121% Short Length of Stay: 26.331% Permanent Stroke: 1.406% Prolonged Ventilation: 15.758% DSW Infection: 0.621% Renal Failure: 6.665% Reoperation: 9.262% for CABG x 1 , AVR in am Objective: Vital Signs - 24 hr 05/19/18 16:00 05/19/18 17:00 05/19/18 18:00 Temperature 98.4 F Pulse Rate 62 67 55 L Respiratory Rate 16 Blood Pressure 162/75 H Pulse Oximetry 98 05/19/18 19:00 05/19/18 19:15 05/19/18 20:00 Temperature 98 F Pulse Rate 59 L 59 L 58 L Respiratory Rate 22 Blood Pressure 168/70 H Pulse Oximetry 97 05/19/18 21:00 05/19/18 22:00 05/19/18 23:00 Temperature 97.9 F Pulse Rate 58 L 54 L 57 L Respiratory Rate 22 Blood Pressure 170/70 H Pulse Oximetry 97 05/20/18 00:00 05/20/18 01:00 05/20/18 02:00 Temperature Pulse Rate 58 L 70 60 Respiratory Rate Blood Pressure Pulse Oximetry 05/20/18 03:00 05/20/18 04:00 05/20/18 05:00 Temperature 97.7 F Pulse Rate 60 52 L 50 L Respiratory Rate 22 Blood Pressure 156/71 H Pulse Oximetry 97 05/20/18 06:00 05/20/18 07:00 05/20/18 08:00 Temperature 98.2 F Pulse Rate 56 L 62 73 Respiratory Rate 22 Blood Pressure 159/70 H Pulse Oximetry 95 05/20/18 09:00 05/20/18 10:00 05/20/18 11:00 Temperature 98.2 F Pulse Rate 67 74 74 Respiratory Rate 20 Blood Pressure 132/72 Pulse Oximetry 91 L 05/20/18 12:00 05/20/18 14:00 Temperature Pulse Rate 72 63 Respiratory Rate Blood Pressure Pulse Oximetry Labs: Laboratory Results - last 12 hr 05/20/18 05/20/18 05/20/18 03:26 03:26 03:26 WBC 7.4 RBC 6.17 H Hgb 18.1 H Hct 55.1 H MCV 89.2 MCH 29.4 MCHC 32.9 RDW 14.5 Plt Count 132 L MPV 10.2 Neut % (Auto) 67.5 Lymph % (Auto) 24.4 [place] % (Auto) 6.1 Eos % (Auto) 1.6 Baso % (Auto) 0.4 Neut # (Auto) 5.0 Lymph # (Auto) 1.8 [place] # (Auto) 0.5 Eos # (Auto) 0.1 Baso # (Auto) 0.0 WBC Differential . Differential Comment Auto diff final PT 10.3 INR 1.0 APTT 23.3 L D Sodium 143 Potassium 4.2 Chloride 104 Carbon Dioxide 30.9 Anion Gap 8 BUN 11 Creatinine 0.89 Estimated GFR 83 L POC Glucose Random Glucose 130 H Calcium 9.4 D 05/20/18 05/20/18 08:35 12:28 WBC RBC Hgb Hct MCV MCH MCHC RDW Plt Count MPV Neut % (Auto) Lymph % (Auto) [place] % (Auto) Eos % (Auto) Baso % (Auto) Neut # (Auto) Lymph # (Auto) [place] # (Auto) Eos # (Auto) Baso # (Auto) WBC Differential Differential Comment PT INR APTT Sodium Potassium Chloride Carbon Dioxide Anion Gap BUN Creatinine Estimated GFR POC Glucose 146 H 144 H Random Glucose Calcium Result Diagrams: 05/20/18 03:26 05/20/18 03:26
[2018-05-20] MEDS ORDERED: ceFAZolin Inj 2,000 MG in Sodium Chlor 0.9% Inj 80 ML IV.SIG SCH (16:00)
[2018-05-20] MEDS ORDERED: Insulin Regular (For Infusion) 100 UNIT in Sodium Chlor 0.9% Inj 99 ML IV.CONT PRN (16:00)
--- NOTE | 2018-05-20 16:02 | US ---
EXAM DATE: 05/20/2018 3:58 PM EDT AGE/SEX: 73 years / Male INDICATIONS: Stenosis. CLINICAL DATA: This is the patient's initial encounter. Patient reports that signs and symptoms have been present for 1 day and indicates a pain score of 0/10. MEDICAL/SURGICAL HISTORY: . Aortic valve stenosis. CAD. COPD. Hyperlipidemia. HTN. Hypothy roid. Diabetic. Appendectomy. Cholecystectomy. Knee surgery. Mastectomy. COMPARISON: [facility], CTA THOR ABD AORTA W CONTRAST W 3D, 05/17/2018. . VELOCITY PARAMETERS: ICA/CCA Ratio: Right 0.72 , Left 1.0 ICA: Right 52 cm/sec, Left 68 cm/sec CCA: Right 72 cm/sec, Left 66 cm/sec ECA: Right 63 cm/sec, Left 63 cm/sec Vertebral: Right 50 cm/sec retrograde, Left 36 cm/sec antegrade FINDINGS: Right Carotid: Mild arteriosclerotic plaque is visualized.The waveforms are within normal limits. Left Carotid: Mild arteriosclerotic plaque is visualized. The waveforms are within normal limits. Other: None. CONCLUSION: 1. Right Internal Carotid Artery: Mild atherosclerotic plaquing. No hemodynamically significant [place] artery stenosis identified. 2. Left Internal Carotid Artery: Mild atherosclerotic plaquing. No hemodynamically significant carot id artery stenosis identified. Electronically signed by: Chay Temple MD 05/20/2018 4:01 PM EDT
[2018-05-20 16:52] LABS: Hemoglobin A1c 6.5 % (4.3-6.0)
[2018-05-20 18:07] LABS: Bilirubin,Urine Negative (Negative); Clarity,Urine Clear (Clear); Color,Urine Yellow (Yellw/Straw); Glucose,Urine (UA) 50 mg/dL (Negative); Leukocyte Esterase,Urine Negative (Negative); Nitrite,Urine Negative (Negative); Specific Gravity,Urine 1.032 (1.002-1.035); Squamous Epithelial Cell,Urine <1 /hpf (0-5)
--- NOTE | 2018-05-20 18:26 | MB ---
cc: Ewelina Campos DATE: 05/17/2018 HISTORY OF PRESENT ILLNESS: This 73-year-old male is a patient of Dr. Khang Del Angel, patient of Dr. Santos, known to Dr. Santos's office, who presented to the office yesterday with some chest pain that radiated to his left axilla and his back until 05/17/2018. He was seen in Dr. Santos's office on 05/16/2018. He was sent directly to the emergency department. The troponins were negative. EKG showed no acute ischemic changes. Chest x-ray was unremarkable. CT abdomen and pelvis, CTA thorax aorta showed no evidence for aneurysm or dissection. He has a history of known severe aortic stenosis with last echocardiogram in January 2018 showing ejection fraction 52%, left ventricular hypertrophy, left atrial enlargement, aortic valve area 0.5, trace mitral regurgitation, mild tricuspid regurgitation. He underwent cardiac catheterization today, which showed a mid distal LAD 60%, circumflex 25%, the RCA 25%. We were consulted to evaluate for aortic valve replacement and coronary artery bypass graft x1. PAST MEDICAL HISTORY: Includes morbid obesity with a body mass index greater than 40, severe aortic stenosis, coronary artery disease, COPD, obstructive sleep apnea, uses a CPAP machine, hyperlipidemia, hypertension, hypothyroidism, restless leg syndrome, type 2 diabetes mellitus. PAST SURGICAL HISTORY: Include appendectomy, cholecystectomy, knee surgery. He has had a mastectomy. He had a catheterization 5 years ago. ALLERGIES: DOXYCYCLINE, IBUPROFEN, MINOCYCLINE, NIACIN, TETRACYCLINE, TYGACIL. FAMILY HISTORY: Unremarkable. SOCIAL HISTORY: The patient is , 2 children, relatively sedentary. He does fish, plays pool. He does wear upper dentures, glasses, hearing aids. He smoked for approximately 28 years up to 3 packs, quit over 30 years ago. Retired. 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 REVIEW OF SYSTEMS: GENERAL: No night sweats, fever, heat and cold intolerance. SKIN: No psoriasis, itching or hives. HEENT: No blurred vision, hearing loss. RESPIRATORY: No cough. Positive for some shortness of breath with exertion. CARDIOVASCULAR: As above in the HPI. GASTROINTESTINAL: No diarrhea or vomiting. GENITOURINARY: No burning, frequency, urgency. CENTRAL NERVOUS SYSTEM: No history of TIA, CVA or seizure disorder. ENDOCRINOLOGY: Positive for diabetes. PHYSICAL EXAMINATION: VITAL SIGNS: Blood pressure 130/70, heart rate of 74, afebrile. GENERAL: Awake, alert, in no acute distress. HEENT: Head is normocephalic, atraumatic. Pupils equal and reactive. Oral mucosa pink, moist. NECK: Supple. No JVD. HEART: Sounds S1, S2. Regular rate and rhythm. He has got a grade 3/6 systolic murmur best heard along his left sternal border. LUNGS: Clear to auscultation. No wheezes, rales or rhonchi. ABDOMEN: Soft, nontender. No masses or organomegaly. Morbidly obese. EXTREMITIES: He has got a dressing to the left groin area. He has good distal pulses. No edema noted. LABORATORY DATA: Shows hemoglobin 18, hematocrit of 55. White cell count of 7.4, platelet count of 132. Sodium 143, potassium 4.2, BUN of 11, creatinine 0.89, glucose 119, 144. Hemoglobin A1c pending. PROCEDURES: Carotid ultrasound, pulmonary function testing showed an FEV1 of 1.7. IMPRESSION: A 73-year-old male with severe aortic stenosis, coronary artery disease of [place] artery. Ejection fraction 52%. The cardiac films have been evaluated by Dr. Sanaz Ortiz. Procedures, alternatives and risks have been discussed with the patient. The patient is agreeable to proceed. PLAN: Will be for surgery in the a.m. Please note, he also has some evidence of polycythemia. Therefore, the ABG is pending. LANI Sanchez/taylor , 03:52 PM , 04:03 PM
--- NOTE | 2018-05-20 18:47 | ECG ---
Date Performed: 05/20/2018 Time Performed: 06:06:04 PTAGE: 73 years EKG: Sinus bradycardia with PAC(s) Possible septal infarct - age undetermined Inferior T wave ch anges are nonspecific Abnormal ECG NO PREVIOUS TRACING DOCTOR: Edmund Charles Interpretating Date/Time 05/20/2018 18:45:17
[2018-05-20 21:19] LABS: ABG Base Excess 5.9 mmol/L (-2-2); ABG PCO2 45 mmHg (38-42); ABG PO2 73 mmHG (61-120)
[2018-05-21] MEDS: Insulin NovoLOG Aspart Correctional Sugar Inj SQ SCH ×3 (03:15→18:29)
[2018-05-21] MEDS ORDERED: Metoprolol Tartrate 25 MG Tablet PO ONE (05:27)
[2018-05-21] MEDS ORDERED: Chlorhexidine Gluconate 2% 1 Pack (2 Cloths) TOPICAL ONE (05:27)
[2018-05-21] MEDS ORDERED: Sodium Chlor 0.9% Inj 500 ML IV.SIG SCH (06:00)
[2018-05-21] MEDS: Levothyroxine 150 MCG Tablet PO SCH (06:07)
[2018-05-21] MEDS ORDERED: MethylPREDNISolone Sod Succinate Inj 125 MG/2 ML Vial ONE (06:27)
[2018-05-21] MEDS ORDERED: Heparin - SQ 10,000 UNITS/ML Vial ONE (06:28)
[2018-05-21 06:52] LABS: Hematocrit 54.5 % (39.0-51.0); Hemoglobin 18.2 gm/dL (13.0-17.0); Mean Corpuscular HGB Conc 33.3 % (32.0-36.0); Mean Corpuscular Hemoglobin 29.7 pg (27.0-34.0); Platelet Count 141 th/mm3 (150-450); Red Blood Count 6.13 mil/mm3 (4.50-5.90); Red Cell Distribution Width 14.3 % (11.6-17.2)
[2018-05-21 07:00] LABS: Alanine Aminotransferase 35 U/L (12-78); Albumin 3.6 g/dL (3.4-5.0); Anion Gap 9 meq/L (5-15); Aspartate Aminotransferase 22 U/L (15-37); Blood Urea Nitrogen 13 mg/dL (7-18); Calcium 9.2 mg/dL (8.5-10.1); Carbon Dioxide 29.5 meq/L (21.0-32.0); Chloride 101 meq/L (98-107); Glomerular Filtration Rate 81 mL/min (>89); Glucose,Random 131 mg/dL (74-106); Potassium 4.1 meq/L (3.5-5.1); Sodium 139 meq/L (136-145)
[2018-05-21 07:02] LABS: Alkaline Phosphatase 81 U/L (45-117); Total Protein 7.3 g/dL (6.4-8.2)
[2018-05-21] MEDS ORDERED: Sodium Chlor 0.9% Inj 500 ML IV.CONT ONE ×2 (07:11)
[2018-05-21] MEDS ORDERED: Normosol-R pH 7.4 Inj 2,000 ML IV.CONT ONE (07:11)
[2018-05-21] MEDS ORDERED: Phenylephrine/NS 1000 MCG/10ML Syringe IV.PUSH ONE (07:30)
[2018-05-21] MEDS ORDERED: Tranexamic Acid Inj 1,000 MG/10 ML Ampul IV.PUSH ONE (07:30)
--- NOTE | 2018-05-21 07:53 | MP ---
cc: Otto Santos MD, Mark DATE OF OPERATION: 05/20/2018 INDICATION FOR CATHETERIZATION: 1. Severe aortic stenosis. 2. Chest pain. CONSENT: A full informed consent was obtained prior to procedure. The risks of , bleeding, myocardial infarction, perforation, aspiration, foreseen and unforeseen were reviewed. The patient fully understood the risks. PROCEDURE The patient was draped in usual manner. Right femoral artery was entered using a micropuncture technique with ultrasound via the 4-[place] sheath. Left and right coronary catheters were used to intubate the left and right coronary arteries. Pigtail catheter left ventricle. Multiple angiographic views were carried out. At the end of the catheterization procedure, all catheters were removed. Sheath was left in place to be pulled in the holding area. FINDINGS: HEMODYNAMICS: The left ventricular pressure was 213 with a left ventricular end diastolic pressure of 21. The aortic pressure was 167/70 mean aortic pressure of 110. The mean gradient was 49.52. The peak gradient was approximately 46 mmHg. CORONARY ARTERIES: The left main was free of significant disease. The left anterior descending artery was a large vessel. There was a large first diagonal branch. There was a small second diagonal branch. In the mid LAD there was a 50%-60% stenosis. Circumflex vessel was a large vessel with a large first obtuse marginal branch, small second obtuse marginal branch, small third obtuse marginal branch. The right coronary artery had an eccentric access entered with an AL-1 catheter. It had a large posterior descending artery and a small posterolateral branch CONCLUSION: 1. Normal left ventricular function. 2. Single vessel coronary artery disease involving primarily the left anterior descending at 60%, severe aortic stenosis noted by echo and also by mean gradient. PLAN: Aortic valve replacement with single vessel bypass. MD CATRACHO Jeter/lucille/yuval , 02:02 PM , 02:12 PM SAIDA
[2018-05-21] MEDS ORDERED: Sodium Bicarbonate 8.4% Inj 50 MEQ/50 ML Syringe IV.PUSH ONE (08:00)
[2018-05-21] MEDS ORDERED: Propofol Inj 500 MG/50 ML Vial IV.SIG ONE (08:10)
[2018-05-21] MEDS ORDERED: Heparin - SQ 10,000 UNITS/ML Vial OTHER ONE (09:12)
[2018-05-21] MEDS ORDERED: Calcium Chloride Inj 1 GM/10 ML Syringe IV.PUSH ONE (11:11)
[2018-05-21] MEDS ORDERED: Dexmedetomidine Inj 200 MCG/2 ML Vial IV.CONT ONE (11:15)
[2018-05-21] MEDS ORDERED: Protamine Sulfate Inj 50 MG/5 ML Vial IV.CONT ONE (11:27)
[2018-05-21] MEDS ORDERED: Albumin Human 5% Inj 250 ML IV.SIG PRN (12:02)
[2018-05-21] MEDS ORDERED: Calcium Chloride Inj 1 GM in Sodium Chlor 0.9% Inj 100 ML IV.SIG PRN (12:02)
[2018-05-21] MEDS ORDERED: RESP: Racemic Epinephrine 2.25% 0.5 ML Neb NEB PRN (12:02)
[2018-05-21] MEDS ORDERED: Magnesium Sulfate Inj 2 GM in Sodium Chlor 0.9% Inj 96 ML IV.SIG PRN ×4 (12:02)
[2018-05-21] MEDS ORDERED: Potassium Chlor 20 mEq Premix 20 MEQ/100 ML PIGGYBACK IV.SIG PRN ×3 (12:02)
[2018-05-21] MEDS ORDERED: Post-op Orders (for Pharmacy) OTHER STA (12:02)
[2018-05-21] MEDS ORDERED: Dexmedetomidine Inj 200 MCG in Sodium Chlor 0.9% Inj 48 ML IV.CONT PRN (12:02)
[2018-05-21] MEDS ORDERED: hydrALAZINE HCl Inj 20 MG/ML Vial IV.PUSH PRN (12:02)
[2018-05-21] MEDS ORDERED: Dextrose 50% in Water 50 ML Vial IV.PUSH PRN (12:02)
[2018-05-21] MEDS ORDERED: Insulin Regular (For Infusion) 100 UNIT in Sodium Chlor 0.9% Inj 99 ML IV.CONT PRN (12:02)
[2018-05-21] MEDS ORDERED: Calcium Chloride Inj 1 GM/10 ML Syringe IV.PUSH PRN (12:02)
--- NOTE | 2018-05-21 12:14 | P.OP ---
- Preoperative Diagnosis (1) Chest pain (2) Unstable angina (3) Aortic stenosis (4) Diastolic heart failure (5) CAD (coronary artery disease) - Postoperative Diagnosis (1) Unstable angina (2) Aortic stenosis (3) Diastolic heart failure (4) CAD (coronary artery disease) Date of procedure: 05/21/18 Procedure: AVR with a 21 Trifecta tissue valve CABG x 1 OLIVEIRA to LAD ALFREDO Implants: 21 Trifecta tissue valve Anesthesia: GETA Surgeon: Sanaz Ortiz MD Endband Cutter Hand: Elva Roth Pathology: other (aortic valve leaflets) Operation and Findings: Cross-clamp time 83 minutes Cardiopulmonary bypass time 100 minutes Drains 36 Beninese mediastinum and 32 Beninese left pleural chest tubes Wires: Atrial Findings: The patient had a moderately calcified trileaflet aortic valve. The LAD target was good. At the conclusion of the procedure, intraoperative ALFREDO showed a well-seated aortic valve with no perivalvular leaks. Left ventricular function was normal. Disposition: The patient was transferred to the CVICU in stable, but guarded condition. Operation in detail: After adequate general anesthesia, the patient was prepped and draped in the usual manner. A median sternotomy was performed and electrocautery was used to obtain hemostasis. Left internal mammary artery was procured as a pedicle from the 7th ribs to the 1st rib in the usual manner. The pericardium was opened and the distal mammary artery was instrumented for anastomosis after adequate heparinization for cardiopulmonary bypass. The heart was instrumented for cardiopulmonary bypass in the usual manner. Antegrade Custodiol cardioplegia was used. The left ventricle was vented through the right superior pulmonary vein. The patient was placed on cardiopulmonary bypass and target vessel was identified. An aortic cross-clamp was applied and the heart was arrest is using cold Custodiol antegrade cardioplegia. After adequate arrest, the distal LAD was opened with a [place] blade and found to be a 1-1/2 millimeters good. The left internal mammary artery was approximated to the LAD using a running 7 0 Prolene suture. The pedicle was tacked to the epicardium using interrupted 5 0 silk suture. Antegrade cardioplegia was administered following which the aorta was vented and opened above the sinotubular ridge. The valve was found to be trileaflet. There was moderate calcification. Aortic valve was excised sharply and the annulus was decalcified using rongeurs. The annulus was sized to a 21 [place] Trifecta bioprosthetic valve which was seated using several interrupted 2-0 Tycron pledgeted horizontal mattress sutures. After seating the valve and securing the sutures, the aorta was repaired in 2 layers using running 4-0 Prolene suture. The patient was placed in steep Trendelenburg position and received a hotshot doses of warm blood cardioplegia. The aorta and left ventricle were vented and the aortic cross- clamp was removed for a total cross-clamp time of 83 minutes. The heart resumed a bradycardic rhythm which eventually converted to a sinus rhythm after several minutes. The heart was filled allowed to eject. The aortic valve replacement was then assessed by intraoperative ALFREDO. The valve was found to be well seated with no perivalvular leak. Left ventricular function was noted to be normal. Temporary atrial pacing wires were placed and brought out through the skin in the usual manner. The patient was weaned from cardiopulmonary bypass for total bypass run of 100 minutes. Protamine was administered to reverse the heparin and all cannulae were removed without incident. A 36 Beninese mediastinal/ 32 Beninese left pleural chest tubes were positioned and each was secured to the skin with a 0 silk suture. The operative field was then examined again for hemostasis which was obtained using electrocautery. The wound was then closed in layers by approximating the sternal tables with interrupted number 6 stainless steel wires following which the presternal fashion was approximately around a 1. PDS suture. The wound was copiously irrigated. The subcutaneous tissue was approximated using a running 2-0 Vicryl suture and the skin was approximated with running 4-0 Monocryl subcuticular stitch. All sponge and instrument counts were correct at the close of the procedure and the patient was transported the CVICU in stable, but guarded condition. Sanaz Ortiz M.D., F.A.C.C., F.A.C.S.
--- NOTE | 2018-05-21 12:31 | P.PNADD ---
Addendum to Inpatient Note Additional information: Patient is in surgery. Discussed with CV surgery REHANGER. Will see patient tomorrow.
[2018-05-21] MEDS: Clevidipine Inj 25 MG/50 ML VIAL IV.CONT PRN ×3 (13:30→21:27)
--- NOTE | 2018-05-21 13:40 | P.CONCC ---
History of Present Illness Service: Critical care medicine Consult date: 05/21/18 Requesting Physician: Sanaz Ortiz Reason for Consult: post-operative hemodynamic management Primary Care Provider: Khang Del Angel MD, PhD Family Provider: ROMAIN SULLIVAN Chief Complaint: Chest pain History of Present Illness: 73yM with severe aortic stenosis and CAD presents for AVR/CAB. underwent aforementioned procedure, 21 mm bioprosthetic AVR with OLIVEIRA-->LAD cabg. a-wires were placed intra-operatively. post-operatively has intermittently been a-paced to keep HR > 65 bpm. arrives intubated. chest tubes have 50mL out in the first hour. uop > 75cc/hr. lactate clearing. patient intubated and remainder of the history obtained from the medical record and discussions with CT surgery team. ROS unobtainable. Review of Systems unobtainable due to endotracheal tube PMFSH - History History Provided By: Medical Record - Medical History Medical History: Medical History (Last Reviewed 05/21/18 @ 18:19 by Brandon Sanz MD) Aortic valve stenosis CAD (coronary artery disease) COPD (chronic obstructive pulmonary disease) Hyperlipidemia Hypertension Hypothyroidism Restless leg syndrome Type 2 diabetes mellitus - Surgical History Surgical History: Surgical History (Last Reviewed 05/21/18 @ 18:19 by Brandon Sanz MD) History of appendectomy History of cholecystectomy History of knee surgery History of mastectomy - Social History I have reviewed the patient's Social History: Yes - Tobacco History Second Hand Smoke Exposure: No Tobacco Use In Past 30 Days: No Smoking Status: Former smoker Tobacco Type: Cigarettes - Alcohol History How Often Do You Have a Drink Containing Alcohol: Never - Substance Use History Substance History: No History of Abuse - Travel History Recent Travel in the [place] Within the Last 8 Weeks: No Recent Travel Out of the Country Within the Last 8 Weeks: No - Immunization History Tetanus Immunization: >5 Years Hx Influenza Vaccine This Season: No Medications and Allergies Active Medications: Active Medications Acetaminophen (Tylenol) 650 mg PO Q4H PRN PRN Reason: Temp > 100.4 Al Hydroxide/Mg Hydroxide (Milk Of Magnesia Liq) 30 ml PO Q12H PRN PRN Reason: Mild Constipation Albuterol (Duoneb Neb (Prn)) 1 ampul NEB Q2HR NEB PRN PRN Reason: WHEEZING Albuterol (Duoneb Neb (Petros)) 1 ampul NEB Q6HR NEB [facility] Amiodarone HCl (Cordarone) 400 mg PO Q8HR [facility] Aspirin (Aspirin Chew) 81 mg PO DAILY [facility] Last Admin: 05/20/18 08:38 Dose: 81 mg Aspirin (Aspirin Chew) 81 mg PO DAILY [facility] Atorvastatin Calcium (Lipitor) 20 mg PO DAILY [facility] Last Admin: 05/20/18 08:38 Dose: 20 mg Bisacodyl (Dulcolax Supp) 10 mg RECTAL DAILY PRN PRN Reason: SEVERE CONSITIPATION Calcium Chloride (Calcium Chloride Inj) 0.5 gm IV.PUSH UNSCH PRN PRN Reason: SEE LABEL COMMENTS Chlorhexidine Gluconate (Hibiclens 4% Topical) 1 applicatio TOPICAL CNC SET UP OPERATOR [facility] Stop: 05/26/18 15:18 Last Admin: 05/20/18 21:00 Dose: 1 applicatio Sodium Chloride 500 ml/ (Cefazolin Sodium 500 mg) 0 ml IRRIGATION CNC SET UP OPERATOR [facility] Stop: 05/26/18 15:23 Sodium Chloride 77.5 ml/Papaverine HCl 60 mg/Nitroglycerin 100 mcg/Diltiazem HCl 100 mg 0 ml IRRIGATION CNC SET UP OPERATOR [facility] Stop: 05/26/18 15:18 Dextrose (D50w Vial) 50 ml IV.PUSH UNSCH PRN PRN Reason: PER HYPOGLYCEMIA PROTOCOL Dextrose (D50w Vial) 50 ml IV.PUSH UNSCH PRN PRN Reason: PER HYPOGLYCEMIA PROTOCOL Dextrose (D50w Vial) 50 ml IV.PUSH UNSCH PRN PRN Reason: PER HYPOGLYCEMIA PROTOCOL Diazepam (Valium) 5 mg PO CNC SET UP OPERATOR [facility] Stop: 05/23/18 13:44 Diphenhydramine HCl (Benadryl) 50 mg PO CNC SET UP OPERATOR [facility] Stop: 05/23/18 13:44 Diphenhydramine HCl (Benadryl Inj) 25 mg IV.PUSH CNC SET UP OPERATOR [facility] Stop: 05/23/18 13:59 Epinephrine (Racepinephrine 2.25% Neb) 0.5 ml NEB DAILY NEB PRN PRN Reason: STRIDOR Fentanyl Citrate (Fentanyl Inj) 50 mcg IV.PUSH CNC SET UP OPERATOR [facility] Stop: 05/23/18 13:44 Fentanyl Citrate (Fentanyl Inj) 25 mcg IV.PUSH Q1H PRN PRN Reason: BREAKTHROUGH PAIN Furosemide (Lasix) 20 mg PO DAILY [facility] Last Admin: 05/20/18 08:38 Dose: 20 mg Glucagon (Glucagon Inj) 1 mg OTHER PRN PRN PRN Reason: for Hypoglycemia Protocol Hydralazine HCl (Apresoline Inj) 10 mg IV.PUSH Q4H PRN PRN Reason: SEE LABEL COMMENTS Dextrose/Sodium Chloride (D5w/Normal Saline Inj) 1,000 mls @ 30 mls/hr IV.CONT .Q24H [facility] Last Admin: 05/20/18 06:05 Dose: 30 mls/hr Cefazolin Sodium 2,000 mg/ (Sodium Chloride) 100 mls @ 200 mls/hr IV.SIG CNC SET UP OPERATOR [facility] Stop: 05/26/18 15:23 Insulin Human Regular 100 unit (/ Sodium Chloride) 100 mls @ 3 mls/hr IV.CONT TITRATE PRN; Protocol PRN Reason: See Protocol Lactated Ringer's (Lr 1000 Ml Inj) 1,000 mls @ 30 mls/hr IV.SIG .Q24H [facility] Stop: 05/22/18 05:29 Last Admin: 05/21/18 06:08 Dose: 30 mls/hr Sodium Chloride (Ns Inj) 500 mls @ 30 mls/hr IV.SIG .Q10H [facility] Last Admin: 05/21/18 06:09 Dose: Not Given Acetaminophen (Ofirmev Inj) 1,000 mg in 100 mls @ 400 mls/hr IV.SIG Q6H [facility] Stop: 05/22/18 07:14 Albumin Human (Buminate 5% Inj) 250 mls @ 250 mls/hr IV.SIG UNSCH PRN PRN Reason: SEE LABEL COMMENTS Calcium Chloride 1 gm/ Sodium (Chloride) 110 mls @ 100 mls/hr IV.SIG PRN PRN PRN Reason: SEE LABEL COMMENTS Cefazolin Sodium 1,000 mg/ (Sodium Chloride) 100 mls @ 200 mls/hr IV.SIG Q8H [facility] Stop: 05/23/18 04:29 Clevidipine (Cleviprex Inj) 25 mg in 50 mls @ 2 mls/hr IV.CONT TITRATE PRN; Protocol PRN Reason: Per protocol Insulin Human Regular 100 unit (/ Sodium Chloride) 100 mls @ 3 mls/hr IV.CONT TITRATE PRN; Protocol PRN Reason: See Protocol Lactated Ringer's (Lr 1000 Ml Inj) 500 mls @ 500 mls/hr IV.SIG .Q1H PRN PRN Reason: SEE LABEL COMMENTS Magnesium Sulfate Inj 2 gm/ (Sodium Chloride) 100 mls @ 50 mls/hr IV.SIG PRN PRN PRN Reason: SEE LABEL COMMENTS Magnesium Sulfate Inj 2 gm/ (Sodium Chloride) 100 mls @ 50 mls/hr IV.SIG PRN PRN PRN Reason: SEE LABEL COMMENTS Potassium Chloride (Kcl 20 Meq Premix Inj) 20 meq in 100 mls @ 50 mls/hr IV.SIG PRN PRN PRN Reason: SEE LABEL COMMENTS Potassium Chloride (Kcl 20 Meq Premix Inj) 20 meq in 100 mls @ 50 mls/hr IV.SIG PRN PRN PRN Reason: SEE LABEL COMMENTS Potassium Chloride (Kcl 20 Meq Premix Inj) 20 meq in 100 mls @ 50 mls/hr IV.SIG PRN PRN PRN Reason: SEE LABEL COMMENTS Dexmedetomidine HCl 200 mcg/ (Sodium Chloride) 50 mls @ 5 mls/hr IV.CONT TITRATE PRN; Protocol PRN Reason: Per Protocol Insulin Aspart (Novolog Insulin Correctional Sugar Inj) 0 unit SQ [facility] AND 3AM [facility]; Protocol Last Admin: 05/21/18 03:15 Dose: Not Given Lactulose (Lactulose Liq) 30 ml PO DAILY PRN PRN Reason: SEVERE CONSITIPATION Levothyroxine Sodium (Synthroid) 150 mcg PO DAILY@0700 [facility] Last Admin: 05/21/18 06:07 Dose: 150 mcg Metoclopramide HCl (Reglan Inj) 10 mg IV.PUSH [facility]; Protocol Metoprolol Tartrate (Lopressor Inj) 2.5 mg IV.PUSH Q1H PRN PRN Reason: SEE LABEL COMMENTS Midazolam HCl (Versed Inj) 1 mg IV.PUSH CNC SET UP OPERATOR [facility] Stop: 05/23/18 13:44 Ondansetron HCl (Zofran Inj) 4 mg IV.PUSH Q6H PRN PRN Reason: NAUSEA OR VOMITING Ondansetron HCl (Zofran Inj) 4 mg IV.PUSH Q6H PRN PRN Reason: NAUSEA OR VOMITING Oxycodone/Acetaminophen (Percocet 5/325 Mg) 1 tab PO Q3H PRN PRN Reason: PAIN SCALE 1 TO 5 Pantoprazole Sodium (Protonix) 40 mg PO DAILY@06 [facility] Phenylephrine HCl (Neosynephrine Inj) 0.1 mg IV.PUSH UNSCH PRN PRN Reason: SEE LABEL COMMENTS Potassium Chloride (K-Dur) 20 meq PO BID [facility] Last Admin: 05/20/18 21:27 Dose: 20 meq Potassium Chloride (K-Dur) 20 meq PO UNSCH PRN PRN Reason: SEE LABEL COMMENTS Potassium Chloride (K-Dur) 40 meq PO UNSCH PRN PRN Reason: SEE LABEL COMMENTS Ropinirole HCl (Requip) 2 mg PO HS [facility] Last Admin: 05/20/18 21:26 Dose: 2 mg Ropinirole HCl (Requip) 1 mg PO DAILY@0900 [facility] Last Admin: 05/20/18 10:00 Dose: 1 mg Senna/Docusate Sodium (Joan-Colace) 1 tab PO BID [facility] Last Admin: 05/20/18 21:28 Dose: Not Given Sennosides (Senokot) 17.2 mg PO Q12H PRN PRN Reason: Moderate Constipation Sodium Bicarbonate (Sodium Bicarbonate 8.4% Inj) 50 meq IV.PUSH UNSCH PRN PRN Reason: SEE LABEL COMMENTS Sodium Bicarbonate (Sodium Bicarbonate 8.4% Inj) 100 meq IV.PUSH UNSCH PRN PRN Reason: SEE LABEL COMMENTS Sodium Chloride (Ns Flush) 2 ml IV.FLUSH BID [facility] Last Admin: 05/20/18 21:27 Dose: 2 ml Sodium Chloride (Ns Flush) 2 ml IV.FLUSH UNSCH PRN PRN Reason: FLUSH AFTER USING IV ACCESS Allergies Allergy/AdvReac Type Severity Reaction Status Date / Time doxycycline Allergy Severe POSSIBLE Verified 09/10/17 10:45 REACTION OF REDNESS, FEELING OF ON FIRE ibuprofen Allergy Severe CHEST PAIN Verified 09/10/17 10:45 minocycline Allergy Severe POSSIBLE Verified 09/10/17 10:45 REACTION OF REDNESS, FEELING OF ON FIRE niacin Allergy Severe REDNESS,FELT Verified 09/10/17 10:45 LIKE i WAS ON FIRE Tetracyclines Allergy Severe Burning Verified 09/10/17 10:45 tigecycline Allergy Severe POSSIBLE Verified 09/10/17 10:45 REACTION OF REDNESS, FEELING OF ON FIRE Home Medications Medication Instructions Recorded Confirmed Type albuterol sulfate [ProAir HFA] 2 puff INHALATION Q6H PRN 05/17/18 05/17/18 History aspirin 81 mg PO DAILY 05/17/18 05/17/18 History atorvastatin 20 mg PO DAILY 05/17/18 05/17/18 History diclofenac sodium 75 mg PO BID 05/17/18 05/17/18 History furosemide [Lasix] 20 mg PO DAILY 05/17/18 05/17/18 History glipizide 5 mg PO DAILY 05/17/18 05/17/18 History levothyroxine 150 mcg PO DAILY 05/17/18 05/17/18 History potassium chloride [Klor-Con] 20 meq PO BID 05/17/18 05/17/18 History vitamin Y27-mpohe acid 1 tab PO DAILY 05/17/18 05/17/18 History vitamin E 400 unit PO DAILY 05/17/18 05/17/18 History ropinirole 1 mg PO DAILY 05/18/18 05/18/18 History ropinirole 2 mg PO HS 05/18/18 05/18/18 History Physical Exam Vital signs: Vital Signs 05/20/18 14:00 05/20/18 15:00 05/20/18 16:00 Temperature Pulse Rate 63 57 L 68 Respiratory Rate Blood Pressure Pulse Oximetry 05/20/18 17:00 05/20/18 18:00 05/20/18 19:00 Temperature Pulse Rate 60 68 74 Respiratory Rate Blood Pressure Pulse Oximetry 05/20/18 20:00 05/20/18 21:00 05/20/18 22:00 Temperature 36.6 C Pulse Rate 72 66 76 Respiratory Rate 22 Blood Pressure 127/61 Pulse Oximetry 96 05/20/18 23:00 05/21/18 00:00 05/21/18 01:00 Temperature 36.6 C Pulse Rate 59 L 60 60 Respiratory Rate 22 Blood Pressure 162/72 H Pulse Oximetry 96 05/21/18 02:00 05/21/18 03:00 05/21/18 04:00 Temperature 36.5 C Pulse Rate 58 L 58 L 55 L Respiratory Rate 22 Blood Pressure 117/57 L Pulse Oximetry 95 05/21/18 05:00 05/21/18 06:00 05/21/18 12:50 Temperature Pulse Rate 58 L 54 L Respiratory Rate 11 L Blood Pressure Pulse Oximetry 97 Intake & Output 05/20/18 05/21/18 05/21/18 18:59 06:59 18:59 Intake Total 840 / 840 120 / 120 3000 / 3000 Output Total 2150 / 2150 700 / 700 3030 / 3030 Balance -1310 / -1310 -580 / -580 -30 / -30 Weight 100 kg Intake: Oral 840 / 840 120 / 120 Anesthesia Amount 3000 / 3000 Output: Urine 2150 / 2150 700 / 700 Estimated Blood Loss 2280 / 2280 Urine Amount (Catheter) 750 / 750 Indwelling Temp Sensing 750 / 750 Catheter Other: # Voids 5 Date of Last Bowel Movement 05/20/18 05/20/18 # Bowel Movements 1 Narrative: GENERAL: intubated, sedated, arousing from anesthesia, ett in place. lying in bed. SKIN: Warm and dry. HEAD: Normocephalic. EYES: No scleral icterus. No injection or drainage. NECK: Supple, trachea midline. No JVD. left SC sheath in place, site c/d/i. CARDIOVASCULAR: Regular rate and rhythm, intermittently a-paced. rate of 66. RESPIRATORY: Breath sounds equal bilaterally. No accessory muscle use. ett in place. psv mode of ventilation. sternal incision with woundvac in place, c/d/i. GASTROINTESTINAL: Abdomen soft, non-tender, nondistended. MUSCULOSKELETAL: No cyanosis, or edema. NEURO: RASS -3. arousing from anesthesia. moves all extremities. purposeful. no focal deficits. - Urinary Catheter Management Indwelling Temp Sensing Catheter Cath placed during this visit: yes Reason for continuing: Hourly intake/output Insertion date: 05/21/18 Insertion time: 07:30 Assessment and Plan - Assessment and Plan Plan: Assessment: 73yM POD 0 s/p tissue AVR/CAB (OLIVEIRA-->LAD). continue to closely monitor. extubate on pathway if continues to do well. s/p bioprosthetic AVR for severe aortic stenosis 05/21 - will likely be volume dependent for the next 12-24h. closely monitor cvp and add ivf as needed - anticoagulation per Dr. Ortiz - ok to extubate on pathway - watch ct output - watch uop - trend lactates CAD with CABG (OLIVEIRA-->LAD) - ASA - statin - remainder of anticoagulation per Dr. Ortiz intermittent epicardial pacing - in the immediate post-operative period would target HR 70-80. AAI mode. - can likely wean atrial rate to < 60 if hemodynamically stable. post-operative atelectasis COPD - wean to extubate - aggressive pulmonary toilet - oob once extubated - wean o2 by ok for goal spo2 > 90% - nebs Diabetes - insulin drip transitioning to SSI Hypertension - currently on clevidipine. goal sbp 100 - 130. - will add back antihypertensives tomorrow. for now, continue rapidly titratable antihypertensives Hypothyroidism - restart home synthroid Hyperlipidemia - home statin Critical care will continue to follow along while patient is in the CVICU.
--- NOTE | 2018-05-21 14:16 | XR ---
EXAM DATE: 05/21/2018 2:02 PM EDT AGE/SEX: 73 years / Male INDICATIONS: Post op CABG. CLINICAL DATA: This is the patient's initial encounter. Patient reports that signs and symptoms have been present for 1 day and indicates a pain score of Nonresponsive. MEDICAL/SURGICAL HISTORY: Chronic obstructive pulmonary disease. Hypertension. Diabetes. Cor onary artery disease. Aortic valve stenosis. Appendectomy. Cholecystectomy. Mastectomy. COMPARISON: [facility] [place], CHEST 2V PA&LAT, 05/17/2018. . FINDINGS: Postsurgical changes following CABG are noted. Endotracheal tube, left thoracostomy tube, mediastinal drain and left subclavian central venous gianna ter are in good position. Side-port of the nasogastric tube is identified in the distal esophagus. Lungs are hypoaerated with scattered airspace disease. There is no evidence of pneumothorax CONCLUSION: Hypoaerated lungs with scattered airspace disease following CABG I port of nasogastric tube is in the distal esophagus. Supportive devices are otherwise in good position. No evidence of pneumothorax. Electronically signed by: Hieu Carias MD 05/21/2018 2:14 PM EDT
--- NOTE | 2018-05-21 14:25 | P.PNCV ---
- Note Subjective/Hospital Course: 73-year-old male is a patient of Dr. Khang Del Angel, patient of Dr. Santos, known to Dr. Santos's office, who presented to the office yesterday with some chest pain that radiated to his left axilla and his back until 05/17/2018. He was seen in Dr. Santos's office on 05/16/2018. He was sent directly to the emergency department. The troponins were negative. EKG showed no acute ischemic changes. Chest x-ray was unremarkable. CT abdomen and pelvis, CTA thorax aorta showed no evidence for aneurysm or dissection. He has a history of known severe aortic stenosis with last echocardiogram in January 2018 showing ejection fraction 52%, left ventricular hypertrophy, left atrial enlargement, aortic valve area 0.5, trace mitral regurgitation, mild tricuspid regurgitation. He underwent cardiac catheterization today, which showed a mid distal LAD 60%, circumflex 25%, the RCA 25%. We were consulted to evaluate for aortic valve replacement and coronary artery bypass graft x1. PAST MEDICAL HISTORY: morbid obesity with a body mass index greater than 40, severe aortic stenosis, coronary artery disease, COPD, obstructive sleep apnea, uses a CPAP machine, hyperlipidemia, hypertension, hypothyroidism, restless leg syndrome, type 2 diabetes mellitus. surgery: 05/21 AVR with a 21 Trifecta tissue valve, CABG x 1, OLIVEIRA to LAD ALFREDO Cross-clamp time 83 minutes Cardiopulmonary bypass time 100 minutes Drains 36 Swedish mediastinum and 32 Swedish left pleural chest tubes Wires: Atrial Objective: Vital Signs - 24 hr 05/20/18 15:00 05/20/18 16:00 05/20/18 17:00 Temperature Pulse Rate 57 L 68 60 Respiratory Rate Blood Pressure Pulse Oximetry 05/20/18 18:00 05/20/18 19:00 05/20/18 20:00 Temperature 97.8 F Pulse Rate 68 74 72 Respiratory Rate 22 Blood Pressure 127/61 Pulse Oximetry 96 05/20/18 21:00 05/20/18 22:00 05/20/18 23:00 Temperature 97.8 F Pulse Rate 66 76 59 L Respiratory Rate 22 Blood Pressure 162/72 H Pulse Oximetry 96 05/21/18 00:00 05/21/18 01:00 05/21/18 02:00 Temperature Pulse Rate 60 60 58 L Respiratory Rate Blood Pressure Pulse Oximetry 05/21/18 03:00 05/21/18 04:00 05/21/18 05:00 Temperature 97.7 F Pulse Rate 58 L 55 L 58 L Respiratory Rate 22 Blood Pressure 117/57 L Pulse Oximetry 95 05/21/18 06:00 05/21/18 12:50 Temperature Pulse Rate 54 L Respiratory Rate 11 L Blood Pressure Pulse Oximetry 97 Labs: Laboratory Results - last 12 hr 05/20/18 05/21/18 05/21/18 16:10 04:56 04:56 WBC 9.0 RBC 6.13 H Hgb 18.2 H Hct 54.5 H MCV 89.0 MCH 29.7 MCHC 33.3 RDW 14.3 Plt Count 141 L MPV 11.0 Sodium 139 Potassium 4.1 Chloride 101 Carbon Dioxide 29.5 Anion Gap 9 BUN 13 Creatinine 0.91 Estimated GFR 81 L POC Glucose Random Glucose 131 H Calcium 9.2 Total Bilirubin 0.6 AST 22 ALT 35 Alkaline Phosphatase 81 Total Protein 7.3 Albumin 3.6 Blood Type O Positive Antibody Screen Negative MTS Gel Crossmatch See Detail 05/21/18 05:36 WBC RBC Hgb Hct MCV MCH MCHC RDW Plt Count MPV Sodium Potassium Chloride Carbon Dioxide Anion Gap BUN Creatinine Estimated GFR POC Glucose 123 H Random Glucose Calcium Total Bilirubin AST ALT Alkaline Phosphatase Total Protein Albumin Blood Type Antibody Screen MTS Gel Crossmatch Result Diagrams: 05/21/18 04:56 05/21/18 04:56 - Plan (3) Diabetes (3) Diabetes Qualifiers: Diabetes mellitus type: type 2
--- NOTE | 2018-05-21 14:28 | P.DCO ---
- Diagnosis (1) Chest pain (3) Diabetes - Home Health Nursing Instructions: Heart and Vascular Surgery patients *Special attention to sternal dressing Mandatory frequency Assess and evaluation, 4 days in a row The next week 3X week 2 times a week for 4 weeks 1 time a week for 5 weeks Schedule Heart and Vascular patients for full 60 day certification period Initial visit Review Open Heart Surgery Discharge Instructions (Sternal precautions, Activity, Elastic hose, Incision care, Driving, Incentive spirometry, Smoking, [place], Work and other) Need Betadine to paint incision Medication reconciliation Importance of follow up care/ check on appointments Make calendar record temperature daily When to call [facility] nurse, review instructions, phone list Incentive Spirometry, demonstration Visit 1- Begin discharge instruction for patient family and/ or caregiver using teach back method- Signs and symptoms of infection Disease characteristics Medicines and side effects Foods and nutrition/ appetite Infection control/ hand washing/ hygiene Visit 2- Continue teaching Discharge instructions- include additional information on smoking cessation , sternal dressing (sternal vac) Visit 3- Continue teaching- Cough and deep breathing, incision monitoring. Choose my plate Visit 4- Continue teaching- Discuss limitations Discuss how they are feeling Discuss progress toward goals Remaining visits- continue teaching and monitoring For any questions please call : Thursday 8am-5pm Heart & Vascular Surgery Office ( Dr. Brewer & Dr. Ortiz), After Hours / Nights (5pm -8am) Weekends and Holidays Please call [facility] Cardiac Intermediate Care Unit (CIC) Charge Nurse PREVENA Single Use Negative Wound Therapy System Caregiver Instruction Sheet 1. A Prevena dressing system was applied to the chest incision during surgery , to promote wound healing. It works via a suction device (negative pressure wound therapy) to remove low to moderate levels of exudate (drainage) and infectious materials. We recommend that the device stay in place for up to seven days, from day of surgery. 2. Day of Surgery__05/21/18 Day of Removal ____05/28/18 3. The dressing should only be removed by a health child care coordinator. Please arrange removal of device to coincide with Home Health visit and or with Nursing staff at Rehab 4. If skin reddening or irritation of skin occurs, or excessive drainage, please notify the Cardiovascular Surgeons office at [phone]. 5. Light showering is permissible; however the pump should be disconnected and placed in safe location, where it will not get wet. The dressing should not be exposed to direct spray or submerged in water. No bath tub / shower only. Ensure the end of the tubing attached to the dressing is facing down so that water does not enter the top of the tube. 6. To remove Prevena dressing: press purple button to turn off device / remove the suction. Then disconnect the tubing from the pump. The fixation strips should be stretched away from the skin and the dressing lifted at one corner and peeled back until it has been fully removed. 7. After removal, it is ok to shower daily using liquid dial soap and clean wash cloth, rinse and pat dry, and leave incision open to air dry. For any concerns regarding Prevena dressing, and or wounds, please contact Ruth Miguel, patient navigator at [phone] or notify the Cardiovascular Surgeons office at [phone]. Incentive spirometry Q1 hr x 10, while awake, also use acapella device hourly whole awake Sternal Breast Bone Precautions: NO pushing or pulling, ( pt must use sternal pillow to support chest with all activities and with coughing ( takes up to 3 months breast bone to heal ) Daily incision care: ok to shower daily, no tub bath. Wash all incisions with liquid dial soap, clean wash cloth to each site, rinse and pat dry. Observe for any signs of infection, such as drainage which is dark yellow, michelle, green or foul smelling. Immediately report to the surgeon any drainage from the chest incision, or legs, and for any abnormal drainage from the chest tube sites. Notify surgeon if any temp >101.5 degrees F. When specialty dressing removed/ or if you do not have one, continue to shower daily as above, then rinse and pat incision dry and paint with betadine daily x 5 days. Allow steri strips to fall off if you have any. Avoid lotions, creams, salves, oils, etc. for the first month Please see attached forms for additional instructions regarding post Open Heart specialty wound vacuum dressings. NICKY or Prevena , Dressing to be removed by Nursing staff on __05/28/[address] Ortiz patients , please obtain CBC, BMP, PA & Lat CXR in 2 weeks, results to Dr. Ortiz ( prescription will be given) ( ) (Tele: [phone]) , Valve replacement pts will need 2decho in 2 weeks with results to Dr. Ortiz . 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 Brewer & Dr. Ortiz), After Hours / Nights (5pm -8am) Weekends and Holidays Please call [facility] Cardiac Intermediate Care Unit (CIC) Charge Nurse - Case Management Consult Yes - Certification I have seen patient Marlon Tineo on 05/21/18. 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
[2018-05-21] MEDS: Amiodarone 200 MG Tablet PO SCH ×2 (14:45→21:54)
[2018-05-21] MEDS: Furosemide 20 MG Tablet PO SCH (15:22)
[2018-05-21] MEDS: Senna/Docusate Sodium 8.6/50 MG Tablet PO SCH ×2 (15:22→21:53)
[2018-05-21] MEDS: fentaNYL Citrate Inj 100 MCG/2 ML Ampul IV.PUSH PRN ×2 (16:58→18:35)
[2018-05-22] MEDS: Insulin NovoLOG Aspart Correctional Sugar Inj SQ SCH ×6 (00:04→20:20)
[2018-05-22] MEDS: Clevidipine Inj 25 MG/50 ML VIAL IV.CONT PRN ×3 (00:05→13:01)
[2018-05-22] MEDS: fentaNYL Citrate Inj 100 MCG/2 ML Ampul IV.PUSH PRN (01:06)
--- NOTE | 2018-05-22 05:21 | XR ---
EXAM DATE: 05/22/2018 4:22 AM EDT AGE/SEX: 73 years / Male INDICATIONS: Shortness of breath, possible pneumothorax. CLINICAL DATA: This is the patient's subsequent encounter. Patient reports that signs and symptoms h ave been present for 2 days and indicates a pain score of 8/10. MEDICAL/SURGICAL HISTORY: Chronic obstructive pulmonary disease. Hypertension. Diabetes. Appe ndectomy. Cholecystectomy. COMPARISON: [facility], CHEST 1V SINGLE AP, 05/21/2018. . FINDINGS: Patient has been extubated with NG tube removed. Stable mediastinal drain and left-sided chest tube a nd left subclavian central line. Improved aeration with persistent bilateral lower lung zone airspace disease. Cardiomegaly saw contours are stable. Remainder of exam is unchanged. CONCLUSION: 1. Patient has been extubated with NG tube removed. 2. Stable postoperative features of CABG with low lung volumes and bibasilar atelectasis. No signifi cant pneumothorax Electronically signed by: Stuart Marques MD 05/22/2018 5:20 AM EDT
[2018-05-22 05:48] LABS: Hematocrit 51.3 % (39.0-51.0); Mean Corpuscular HGB Conc 33.1 % (32.0-36.0); Mean Corpuscular Hemoglobin 29.3 pg (27.0-34.0); Mean Corpuscular Volume 88.6 fL (80.0-100.0); Mean Platelet Volume 10.7 fL (7.0-11.0); Platelet Count 101 th/mm3 (150-450); Red Blood Count 5.79 mil/mm3 (4.50-5.90); Red Cell Distribution Width 14.2 % (11.6-17.2)
[2018-05-22 06:17] LABS: Calcium 8.8 mg/dL (8.5-10.1); Carbon Dioxide 23.7 meq/L (21.0-32.0); Magnesium 2.5 mg/dL (1.5-2.5)
[2018-05-22] MEDS: Amiodarone 200 MG Tablet PO SCH ×3 (06:40→21:08)
[2018-05-22] MEDS: Metoprolol Inj 5 MG/5 ML Vial IV.PUSH PRN ×3 (07:20→11:20)
[2018-05-22] MEDS: amLODIPine 5 MG Tablet PO SCH (08:43)
[2018-05-22] MEDS: Levothyroxine 150 MCG Tablet PO SCH (08:53)
[2018-05-22] MEDS: Furosemide 20 MG Tablet PO SCH (08:53)
[2018-05-22] MEDS: Senna/Docusate Sodium 8.6/50 MG Tablet PO SCH ×2 (08:54→20:19)
--- NOTE | 2018-05-22 11:00 | P.PNCV ---
- Note CVT: Post Op Day #: 1 Subjective/Hospital Course: 73-year-old male is a patient of Dr. Khang Del Angel, patient of Dr. Santos, known to Dr. Santos's office, who presented to the office yesterday with some chest pain that radiated to his left axilla and his back until 05/17/2018. He was seen in Dr. Santos's office on 05/16/2018. He was sent directly to the emergency department. The troponins were negative. EKG showed no acute ischemic changes. Chest x-ray was unremarkable. CT abdomen and pelvis, CTA thorax aorta showed no evidence for aneurysm or dissection. He has a history of known severe aortic stenosis with last echocardiogram in January 2018 showing ejection fraction 52%, left ventricular hypertrophy, left atrial enlargement, aortic valve area 0.5, trace mitral regurgitation, mild tricuspid regurgitation. He underwent cardiac catheterization today, which showed a mid distal LAD 60%, circumflex 25%, the RCA 25%. We were consulted to evaluate for aortic valve replacement and coronary artery bypass graft x1. PAST MEDICAL HISTORY: morbid obesity with a body mass index greater than 40, severe aortic stenosis, coronary artery disease, COPD, obstructive sleep apnea, uses a CPAP machine, hyperlipidemia, hypertension, hypothyroidism, restless leg syndrome, type 2 diabetes mellitus. surgery: 05/21 AVR with a 21 Trifecta tissue valve, CABG x 1, OLIVEIRA to LAD ALFREDO Cross-clamp time 83 minutes Cardiopulmonary bypass time 100 minutes Drains 36 Maltese mediastinum and 32 Maltese left pleural chest tubes Wires: Atrial 05/22/18 confused overnight No complaints Objective: Vital Signs - 24 hr 05/21/18 12:50 05/21/18 13:00 05/21/18 14:00 Temperature 98.6 F 98.6 F Pulse Rate 63 Respiratory Rate 11 L 11 L Blood Pressure 149/73 H Pulse Oximetry 97 98 05/21/18 14:39 05/21/18 15:00 05/21/18 16:45 Temperature 98.6 F Pulse Rate 73 71 71 Respiratory Rate 20 17 Blood Pressure 134/74 Pulse Oximetry 99 05/21/18 19:00 05/21/18 19:35 05/21/18 23:00 Temperature 99 F 99.6 F Pulse Rate 75 78 95 H Respiratory Rate 24 16 24 Blood Pressure 141/67 H 148/64 H Pulse Oximetry 93 L 94 L 95 05/22/18 03:00 05/22/18 03:23 05/22/18 03:32 Temperature 99.2 F 99.2 F Pulse Rate 102 H Respiratory Rate 26 H 20 Blood Pressure 144/62 H Pulse Oximetry 96 05/22/18 07:00 05/22/18 10:56 Temperature 98.4 F Pulse Rate 112 H Respiratory Rate 18 Blood Pressure 142/63 H Pulse Oximetry 98 97 Labs: Laboratory Results - last 12 hr 05/21/18 05/22/18 05/22/18 23:20 01:19 02:18 WBC RBC Hgb Hct MCV MCH MCHC RDW Plt Count MPV Sodium Potassium Chloride Carbon Dioxide Anion Gap BUN Creatinine Estimated GFR POC Glucose 120 H 103 92 Random Glucose Calcium Magnesium 05/22/18 05/22/18 05/22/18 04:09 04:15 04:15 WBC 23.0 H D RBC 5.79 Hgb 17.0 Hct 51.3 H MCV 88.6 MCH 29.3 MCHC 33.1 RDW 14.2 Plt Count 101 L MPV 10.7 Sodium 140 Potassium 4.0 Chloride 103 Carbon Dioxide 23.7 Anion Gap 13 BUN 23 H Creatinine 1.29 Estimated GFR 54 L POC Glucose 134 H Random Glucose 145 H Calcium 8.8 Magnesium 2.5 05/22/18 05/22/18 05/22/18 05:01 06:45 07:17 WBC RBC Hgb Hct MCV MCH MCHC RDW Plt Count MPV Sodium Potassium Chloride Carbon Dioxide Anion Gap BUN Creatinine Estimated GFR POC Glucose 130 H 116 H 115 H Random Glucose Calcium Magnesium Result Diagrams: 05/22/18 04:15 05/22/18 04:15 Imaging: Thoracic Aorta CT 05/17/18 22:10 CONCLUSION: 1. CTA negative for thoracic or abdominal aortic aneurysm or dissection. Moderate atherosclerotic change present including within the coronary arteries. Carotid Doppler Study 05/20/18 15:18 CONCLUSION: 1. Right Internal Carotid Artery: Mild atherosclerotic plaquing. No hemodynamically significant carotid artery stenosis identified. 2. Left Internal Carotid Artery: Mild atherosclerotic plaquing. No hemodynamically significant carotid artery stenosis identified. Chest X-Ray 05/22/18 05:00 CONCLUSION: 1. Patient has been extubated with NG tube removed. 2. Stable postoperative features of CABG with low lung volumes and bibasilar atelectasis. No significant pneumothorax Cardiovascular: RRR Telemetry: NSR Pulmonary: Decreased BS bilat GI/: NABS Incision: dry and intact CT: 140ml/12hrs - Plan (1) Chest pain (6) Diabetes Up to chair PT - ambulate Diurese Start Coreg at home dose D/C pain meds until mental status improves Consider transfer later today pending activity level and mental status Cont chest tubes (1) Chest pain Qualifiers: Chest pain type: unspecified Qualified Code(s): R07.9 - Chest pain, unspecified (6) Diabetes Qualifiers: Diabetes mellitus type: type 2 Diabetes mellitus complication status: with circulatory complication Diabetes mellitus complication detail: with other circulatory complications
--- NOTE | 2018-05-22 11:56 | ECG ---
Date Performed: 05/22/2018 Time Performed: 06:28:36 PTAGE: 73 years EKG: Sinus tachycardia Inferior infarct - age undetermined Abnormal ECG NO PREVIOUS TRACING DOCTOR: Dee Dee Flores Interpretating Date/Time 05/22/2018 11:55:37
[2018-05-22] MEDS: Acetaminophen 325 MG Tablet PO PRN ×2 (12:11→20:18)
[2018-05-22] MEDS: glipiZIDE 5 MG Tablet PO SCH (12:13)
--- NOTE | 2018-05-22 12:46 | P.PNCC ---
Subjective Subjective Remarks/Hospital Course: Hospital Course: 73yM with severe aortic stenosis and CAD presents for AVR/CAB. underwent aforementioned procedure, 21 mm bioprosthetic AVR with OLIVEIRA-->LAD cabg. a-wires were placed intra-operatively. post-operatively has intermittently been a-paced to keep HR > 65 bpm. arrives intubated. chest tubes have 50mL out in the first hour. uop > 75cc/hr. lactate clearing. patient intubated and remainder of the history obtained from the medical record and discussions with CT surgery team. ROS unobtainable. Subjective: 05/22: extubated. doing well. on 8L o2 by NC. CXR with pulmonary edema. CVP 8. clinically appears to be volume overloaded. olivera removed at 8am and has not voided despite 60 mg lasix iv. bladder scan with 90mL estimated in bladder. ABG without lactate or acidosis. ScVO2 78%. some confusion on exam. Objective Vital Signs / I&O: Vital Signs 05/21/18 12:50 05/21/18 13:00 05/21/18 14:00 Temperature 37.0 C 37.0 C Pulse Rate 63 Respiratory Rate 11 L 11 L Blood Pressure 149/73 H Pulse Oximetry 97 98 05/21/18 14:39 05/21/18 15:00 05/21/18 16:45 Temperature 37.0 C Pulse Rate 73 71 71 Respiratory Rate 20 17 Blood Pressure 134/74 Pulse Oximetry 99 05/21/18 19:00 05/21/18 19:35 05/21/18 23:00 Temperature 37.2 C 37.6 C Pulse Rate 75 78 95 H Respiratory Rate 24 16 24 Blood Pressure 141/67 H 148/64 H Pulse Oximetry 93 L 94 L 95 05/22/18 03:00 05/22/18 03:23 05/22/18 03:32 Temperature 37.3 C 37.3 C Pulse Rate 102 H Respiratory Rate 26 H 20 Blood Pressure 144/62 H Pulse Oximetry 96 05/22/18 07:00 05/22/18 10:56 05/22/18 11:00 Temperature 36.9 C 36.8 C Pulse Rate 112 H 100 H Respiratory Rate 18 18 Blood Pressure 142/63 H 135/55 L Pulse Oximetry 98 97 Intake & Output 05/21/18 05/22/18 05/22/18 18:59 06:59 18:59 Intake Total 3810 / 3810 955 / 955 250 / 250 Output Total 3820 / 3820 675 / 675 Balance -10 / -10 280 / 280 250 / 250 Weight 105 kg Intake: IV 310 / 310 475 / 475 250 / 250 Cleviprex Inj 25 mg In 50 ml @ 175 / 175 50 / 50 1 MG/HR 2 mls/hr IV.CONT TITRATE PRN Rx#:[id number] Precedex Inj 200 MCG In NS Inj 0 / 0 48 ML @ 0.2 MCG/KG/HR 5 mls/hr IV.CONT TITRATE PRN Rx#: [id number] D5W/Normal Saline Inj 1,000 ML 0 / 0 @ 30 mls/hr IV.CONT .Q24H VERNON Rx#:[id number] Ofirmev Inj 1,000 mg In 100 ml 200 / 200 100 / 100 100 / 100 @ 400 mls/hr IV.SIG Q6H VERNON Rx# :[id number] Calcium Chloride Inj 1 GM In NS 110 / 110 Inj 100 ML @ 100 mls/hr IV.SIG PRN PRN Rx#:[id number] KCl 20 mEq Premix Inj 20 meq In 100 / 100 100 ml @ 50 mls/hr IV.SIG PRN PRN Rx#:[id number] Ancef Inj 1,000 MG In NS Inj 100 / 100 100 / 100 100 ML @ 200 mls/hr IV.SIG Q8H VERNON Rx#:[id number] Oral 480 / 480 Anesthesia Amount 3500 / 3500 Output: Estimated Blood Loss 2280 / 2280 Urine Amount (Catheter) 1400 / 1400 675 / 675 Indwelling Temp Sensing 1400 / 1400 675 / 675 Catheter Chest Tube Drainage 140 / 140 #2 Anterior 140 / 140 Result Diagrams: 05/22/18 04:15 05/22/18 04:15 Objective Remarks: GENERAL: awake, alert but confused. sitting up in bed. SKIN: Warm and dry. HEAD: Normocephalic. EYES: No scleral icterus. No injection or drainage. NECK: Supple, trachea midline. mild JVD. left SC sheath in place, site c/d/i. CARDIOVASCULAR: tachycardic rate and rhythm, not paced. sinus. rate of 107. RESPIRATORY: Breath sounds equal bilaterally. No accessory muscle use. 8L o2 by NC. sternal incision with woundvac in place, c/d/i. GASTROINTESTINAL: Abdomen soft, non-tender, nondistended. 2 chest tubes exit subxiphoid, minimal serosanguinous output. MUSCULOSKELETAL: No cyanosis, or edema. NEURO: RASS +1. CAM+. oriented to person and place. confused. moving all extremities. no focal deficits. Assessment and Plan - Assessment and Plan Plan: Assessment: 73yM POD 1 s/p tissue AVR/CAB (OLIVIERA-->LAD). complicated by oliguria this morning and agitated delirium. s/p bioprosthetic AVR for severe aortic stenosis 05/21 - anticoagulation per Dr. Ortiz - watch uop - lactate has cleared Agitated Delirium - haldol prn - day/night reorientation - oob with PT Oliguria - clinically appears volume overloaded - agree with additional lasix - continue to trend CVP - may require replacement of olivrea catheter for closer watching of hourly urine output. CAD with CABG (OLIVEIRA-->LAD) - ASA - statin - remainder of anticoagulation per Dr. Ortiz intermittent epicardial pacing- resolved. post-operative atelectasis COPD Early pulmonary edema - continue forced diuresis - aggressive pulmonary toilet - oob - wean o2 by nc for goal spo2 > 90% - nebs Diabetes - SSI Hypertension - currently on clevidipine. goal sbp < 160 - add back carvedilol Sinus tachycardia - will need rate control to allow time for adequate LV filling - metoprolol 5mg iv x 1 - prn metoprolol - restart home carvedilol - may need increasing of his home beta blockade. Hypothyroidism - restart home synthroid Hyperlipidemia - home statin Critical care will continue to follow along while patient is in the CVICU.
[2018-05-22] MEDS ORDERED: Metoprolol Inj 5 MG/5 ML Vial IV.PUSH ONE (13:05)
[2018-05-23] MEDS: Insulin NovoLOG Aspart Correctional Sugar Inj SQ SCH ×5 (05:06→20:39)
[2018-05-23] MEDS: Metoprolol Inj 5 MG/5 ML Vial IV.PUSH PRN ×2 (05:14→07:46)
[2018-05-23] MEDS: Levothyroxine 150 MCG Tablet PO SCH (06:46)
[2018-05-23] MEDS: Amiodarone 200 MG Tablet PO SCH ×3 (06:46→22:52)
[2018-05-23] MEDS: Furosemide 20 MG Tablet PO SCH (08:14)
[2018-05-23] MEDS: glipiZIDE 5 MG Tablet PO SCH (08:14)
[2018-05-23] MEDS: Senna/Docusate Sodium 8.6/50 MG Tablet PO SCH ×2 (08:25→20:25)
[2018-05-23] MEDS ORDERED: Haloperidol Inj 5 MG/ML Ampul IV.PUSH PRN (09:58)
--- NOTE | 2018-05-23 10:06 | P.PNCC ---
Subjective Subjective Remarks/Hospital Course: Hospital Course: 73yM with severe aortic stenosis and CAD presents for AVR/CAB. underwent aforementioned procedure, 21 mm bioprosthetic AVR with OLIVEIRA-->LAD cabg. a-wires were placed intra-operatively. post-operatively has intermittently been a-paced to keep HR > 65 bpm. arrives intubated. chest tubes have 50mL out in the first hour. uop > 75cc/hr. lactate clearing. patient intubated and remainder of the history obtained from the medical record and discussions with CT surgery team. ROS unobtainable. Subjective: 05/22: extubated. doing well. on 8L o2 by NC. CXR with pulmonary edema. CVP 8. clinically appears to be volume overloaded. olivera removed at 8am and has not voided despite 60 mg lasix iv. bladder scan with 90mL estimated in bladder. ABG without lactate or acidosis. ScVO2 78%. some confusion on exam. 05/23: on room air. very confused and CAM+. hemodynamically much improved. adequate diuresis. did not sleep last night. Objective Vital Signs / I&O: Vital Signs 05/22/18 10:56 05/22/18 11:00 05/22/18 15:00 Temperature 36.8 C 36.7 C Pulse Rate 100 H 91 H Respiratory Rate 18 18 Blood Pressure 135/55 L 136/79 Pulse Oximetry 97 05/22/18 16:25 05/22/18 16:46 05/22/18 19:00 Temperature 36.9 C Pulse Rate 96 H 96 H Respiratory Rate 20 16 Blood Pressure 141/76 H Pulse Oximetry 94 L 95 05/22/18 21:40 05/22/18 23:00 05/23/18 03:00 Temperature 37.2 C 36.9 C Pulse Rate 111 H 104 H Respiratory Rate 16 16 Blood Pressure 176/96 H 125/53 L Pulse Oximetry 92 L 95 95 05/23/18 04:06 05/23/18 07:00 Temperature 37.1 C Pulse Rate 102 H 100 H Respiratory Rate 20 16 Blood Pressure 169/90 H Pulse Oximetry 94 L Intake & Output 05/22/18 05/23/18 05/23/18 18:59 06:59 18:59 Intake Total 1310 / 1310 680 / 680 Output Total 1810 / 1810 1010 / 1010 Balance -500 / -500 -330 / -330 Weight 103 kg Intake: IV 350 / 350 200 / 200 Cleviprex Inj 25 mg In 50 ml @ 50 / 50 1 MG/HR 2 mls/hr IV.CONT TITRATE PRN Rx#:[id number] Precedex Inj 200 MCG In NS Inj 0 / 0 48 ML @ 0.2 MCG/KG/HR 5 mls/hr IV.CONT TITRATE PRN Rx#: [id number] D5W/Normal Saline Inj 1,000 ML 0 / 0 @ 30 mls/hr IV.CONT .Q24H VERNON Rx#:[id number] Ofirmev Inj 1,000 mg In 100 ml 100 / 100 @ 400 mls/hr IV.SIG Q6H VERNON Rx# :[id number] LR 1000 mL Inj 1,000 ML @ 30 0 / 0 mls/hr IV.SIG .Q24H VERNON Rx#: [id number] Ancef Inj 1,000 MG In NS Inj 200 / 200 200 / 200 100 ML @ 200 mls/hr IV.SIG Q8H VERNON Rx#:[id number] Oral 960 / 960 480 / 480 Output: Urine 1700 / 1700 900 / 900 Chest Tube Drainage 110 / 110 110 / 110 #2 Anterior 110 / 110 110 / 110 Other: # Incontinent Voids 1 Result Diagrams: 05/22/18 04:15 05/22/18 04:15 Objective Remarks: GENERAL: awake, alert but confused. sitting up in a chair. SKIN: Warm and dry. HEAD: Normocephalic. EYES: No scleral icterus. No injection or drainage. NECK: trachea midline. no jvd. CARDIOVASCULAR: normal rate, regular rhythm. sinus. RESPIRATORY: Breath sounds equal bilaterally. No accessory muscle use. room air. sternal incision with woundvac in place, c/d/i. GASTROINTESTINAL: Abdomen soft, non-tender, nondistended. 2 chest tubes exit subxiphoid, minimal serosanguinous output. MUSCULOSKELETAL: No cyanosis, or edema. NEURO: RASS 0. CAM+. oriented to person and place. confused. moving all extremities. no focal deficits. Assessment and Plan - Assessment and Plan Plan: Assessment: 73yM POD 2 s/p tissue AVR/CAB (OLIVEIRA-->LAD). complicated by ICU delirium. need to restore sleep/wake cycle. aggressive non-pharmacologic strategies. add small doses of zyprexa and breakthrough haldol. stable for transfer out of ICU, and this will also likely help with ICU delirium. s/p bioprosthetic AVR for severe aortic stenosis 05/21 - anticoagulation per Dr. Ortiz - lactate has cleared Agitated Delirium- persistent - haldol prn - day/night reorientation - oob with PT - start zyprexa TID 2.5/2.5/5 - aggressive non-pharmacologic measures. - keep up during day, must sleep at night. - melatonin 5mg po qHS. Oliguria- resolved - continue forced diuresis. CAD with CABG (OLIVEIRA-->LAD) - ASA - statin - remainder of anticoagulation per Dr. Ortiz intermittent epicardial pacing- resolved. post-operative atelectasis- resolving. COPD Early pulmonary edema- resolving. - continue forced diuresis - aggressive pulmonary toilet - oob - wean o2 by nc for goal spo2 > 90% - nebs Diabetes - SSI Hypertension - increase carvedilol to 12.5mg po BID Sinus tachycardia- resolving. - will need rate control to allow time for adequate LV filling - increase carvedilol Hypothyroidism - home synthroid Hyperlipidemia - home statin Dispo: transfer out of ICU. Critical care medicine will sign off.
[2018-05-23] MEDS ORDERED: Carvedilol 12.5 MG Tablet PO ONE (10:15)
[2018-05-23 10:30] LABS: Hematocrit 48.3 % (39.0-51.0); Hemoglobin 15.8 gm/dL (13.0-17.0); Mean Corpuscular HGB Conc 32.7 % (32.0-36.0); Mean Corpuscular Hemoglobin 29.1 pg (27.0-34.0); Mean Corpuscular Volume 89.2 fL (80.0-100.0); Mean Platelet Volume 10.2 fL (7.0-11.0); Platelet Count 80 th/mm3 (150-450); Red Blood Count 5.41 mil/mm3 (4.50-5.90); Red Cell Distribution Width 14.5 % (11.6-17.2); White Blood Count 18.6 th/mm3 (4.0-11.0)
[2018-05-23 10:45] LABS: Calcium 8.3 mg/dL (8.5-10.1); Carbon Dioxide 30.9 meq/L (21.0-32.0); Magnesium 2.2 mg/dL (1.5-2.5); Phosphorus 1.9 mg/dL (2.5-4.9); Potassium 4.1 meq/L (3.5-5.1)
--- NOTE | 2018-05-23 10:52 | P.PNCV ---
- Note CVT: Post Op Day #: 2 Subjective/Hospital Course: 73-year-old male is a patient of Dr. Khang Del Angel, patient of Dr. Santos, known to Dr. Santos's office, who presented to the office yesterday with some chest pain that radiated to his left axilla and his back until 05/17/2018. He was seen in Dr. Santos's office on 05/16/2018. He was sent directly to the emergency department. The troponins were negative. EKG showed no acute ischemic changes. Chest x-ray was unremarkable. CT abdomen and pelvis, CTA thorax aorta showed no evidence for aneurysm or dissection. He has a history of known severe aortic stenosis with last echocardiogram in January 2018 showing ejection fraction 52%, left ventricular hypertrophy, left atrial enlargement, aortic valve area 0.5, trace mitral regurgitation, mild tricuspid regurgitation. He underwent cardiac catheterization today, which showed a mid distal LAD 60%, circumflex 25%, the RCA 25%. We were consulted to evaluate for aortic valve replacement and coronary artery bypass graft x1. PAST MEDICAL HISTORY: morbid obesity with a body mass index greater than 40, severe aortic stenosis, coronary artery disease, COPD, obstructive sleep apnea, uses a CPAP machine, hyperlipidemia, hypertension, hypothyroidism, restless leg syndrome, type 2 diabetes mellitus. surgery: 05/21 AVR with a 21 Trifecta tissue valve, CABG x 1, OLIVEIRA to LAD ALFREDO Cross-clamp time 83 minutes Cardiopulmonary bypass time 100 minutes Drains 36 Wol[place] mediastinum and 32 Wol[place] left pleural chest tubes Wires: Atrial 05/22/18 confused overnight No complaints 05/23/18 Remains somewhat confused and paranoid. Objective: Vital Signs - 24 hr 05/22/18 10:56 05/22/18 11:00 05/22/18 15:00 Temperature 98.3 F 98.1 F Pulse Rate 100 H 91 H Respiratory Rate 18 18 Blood Pressure 135/55 L 136/79 Pulse Oximetry 97 05/22/18 16:25 05/22/18 16:46 05/22/18 19:00 Temperature 98.4 F Pulse Rate 96 H 96 H Respiratory Rate 20 16 Blood Pressure 141/76 H Pulse Oximetry 94 L 95 05/22/18 21:40 05/22/18 23:00 05/23/18 03:00 Temperature 98.9 F 98.5 F Pulse Rate 111 H 104 H Respiratory Rate 16 16 Blood Pressure 176/96 H 125/53 L Pulse Oximetry 92 L 95 95 05/23/18 04:06 05/23/18 07:00 Temperature 98.7 F Pulse Rate 102 H 100 H Respiratory Rate 20 16 Blood Pressure 169/90 H Pulse Oximetry 94 L Labs: Laboratory Results - last 12 hr 05/20/18 05/23/18 05/23/18 16:10 04:53 07:51 WBC RBC Hgb Hct MCV MCH MCHC RDW Plt Count MPV Sodium Potassium Chloride Carbon Dioxide Anion Gap BUN Creatinine Estimated GFR POC Glucose 179 H 186 H Random Glucose Calcium Phosphorus Magnesium MTS Gel Crossmatch See Detail 05/23/18 05/23/18 10:18 10:18 WBC 18.6 H RBC 5.41 Hgb 15.8 Hct 48.3 MCV 89.2 MCH 29.1 MCHC 32.7 RDW 14.5 Plt Count 80 L MPV 10.2 Sodium 142 Potassium 4.1 Chloride 103 Carbon Dioxide 30.9 Anion Gap 8 BUN 21 H Creatinine 0.98 Estimated GFR 75 L POC Glucose Random Glucose 201 H Calcium 8.3 L Phosphorus 1.9 L Magnesium 2.2 MTS Gel Crossmatch Result Diagrams: 05/23/18 10:18 05/23/18 10:18 Imaging: Thoracic Aorta CT 05/17/18 22:10 CONCLUSION: 1. CTA negative for thoracic or abdominal aortic aneurysm or dissection. Moderate atherosclerotic change present including within the coronary arteries. Carotid Doppler Study 05/20/18 15:18 CONCLUSION: 1. Right Internal Carotid Artery: Mild atherosclerotic plaquing. No hemodynamically significant carotid artery stenosis identified. 2. Left Internal Carotid Artery: Mild atherosclerotic plaquing. No hemodynamically significant carotid artery stenosis identified. Chest X-Ray 05/22/18 05:00 CONCLUSION: 1. Patient has been extubated with NG tube removed. 2. Stable postoperative features of CABG with low lung volumes and bibasilar atelectasis. No significant pneumothorax Cardiovascular: RRR Telemetry: NSR Pulmonary: CTA GI/: NABS Incision: dry and intact CT: 110/12hrs - Plan (1) Chest pain (6) Diabetes Remove chest tubes PT/OT , up to chair/ambulate No pain meds due to confusion Transfer to stepdown (1) Chest pain Qualifiers: Chest pain type: unspecified Qualified Code(s): R07.9 - Chest pain, unspecified (6) Diabetes Qualifiers: Diabetes mellitus type: type 2 Diabetes mellitus complication status: with circulatory complication Diabetes mellitus complication detail: with other circulatory complications
[2018-05-23] MEDS: Carvedilol 12.5 MG Tablet PO SCH (20:27)
[2018-05-23] MEDS: Melatonin 5 MG Tablet PO SCH (20:35)
[2018-05-24] MEDS: Insulin NovoLOG Aspart Correctional Sugar Inj SQ SCH ×5 (03:00→20:55)
[2018-05-24] MEDS: Amiodarone 200 MG Tablet PO SCH ×3 (05:23→22:45)
[2018-05-24] MEDS: Levothyroxine 150 MCG Tablet PO SCH (06:09)
[2018-05-24] MEDS: glipiZIDE 5 MG Tablet PO SCH (08:33)
[2018-05-24] MEDS: Senna/Docusate Sodium 8.6/50 MG Tablet PO SCH ×3 (08:33→20:56)
[2018-05-24] MEDS: Carvedilol 12.5 MG Tablet PO SCH ×2 (08:33→20:54)
[2018-05-24] MEDS: Acetaminophen 325 MG Tablet PO PRN (08:34)
[2018-05-24] MEDS: Furosemide 20 MG Tablet PO SCH (08:34)
--- NOTE | 2018-05-24 09:48 | P.PNCA ---
Subjective Interval history: Patient is alert and oriented. Sitting up in chair, at his side. Reports feeling much better this AM. He denies any acute cardiac complaints. Doing well post o/p Physical Exam Vital signs: Vital Signs 05/23/18 11:00 05/23/18 12:50 05/23/18 14:00 Temperature 98.3 F Pulse Rate 92 H 79 88 Respiratory Rate 18 18 Blood Pressure 151/84 H Pulse Oximetry 94 L 05/23/18 15:00 05/23/18 16:00 05/23/18 16:35 Temperature 98.2 F Pulse Rate 76 88 82 Respiratory Rate 18 18 Blood Pressure 148/62 H Pulse Oximetry 05/23/18 16:37 05/23/18 17:00 05/23/18 18:00 Temperature Pulse Rate 90 81 Respiratory Rate Blood Pressure Pulse Oximetry 95 05/23/18 19:00 05/23/18 20:00 05/23/18 21:00 Temperature 98.4 F Pulse Rate 85 87 81 Respiratory Rate 22 Blood Pressure 145/65 H Pulse Oximetry 95 05/23/18 22:00 05/23/18 23:00 05/24/18 00:00 Temperature 97.9 F Pulse Rate 81 79 76 Respiratory Rate 20 Blood Pressure Pulse Oximetry 05/24/18 01:00 05/24/18 02:00 05/24/18 03:00 Temperature Pulse Rate 82 69 66 Respiratory Rate 18 Blood Pressure Pulse Oximetry 05/24/18 04:00 05/24/18 05:00 05/24/18 05:50 Temperature Pulse Rate 67 65 64 Respiratory Rate Blood Pressure Pulse Oximetry 05/24/18 07:00 05/24/18 07:51 05/24/18 08:00 Temperature 98.4 F Pulse Rate 65 68 73 Respiratory Rate 19 19 Blood Pressure 155/73 H Pulse Oximetry 97 05/24/18 08:21 05/24/18 09:00 Temperature Pulse Rate 74 70 Respiratory Rate 19 Blood Pressure Pulse Oximetry 96 Intake & Output 05/23/18 05/24/18 05/24/18 18:59 06:59 18:59 Intake Total 1790 / 1790 480 / 480 Output Total 1550 / 1550 900 / 900 Balance 240 / 240 -420 / -420 Weight 101 kg Intake: Oral 1790 / 1790 480 / 480 Output: Urine 1550 / 1550 900 / 900 Other: # Voids 4 # Incontinent Voids 1 Date of Last Bowel Movement 05/20/18 # Bowel Movements 0 0 - Constitutional no acute distress - Routine HEENT Exam Head: Present: normocephalic Eye: Present: normal accommodation ENT: Present: mucous membranes moist - Routine Neck Exam Present: supple - Routine Respiratory Exam Present: wheezes, crackles - Routine Cardiovascular Exam Present: RRR - Routine Abdominal Exam Present: soft - Routine Skin Exam Present: wounds Comments: sternal dressing, clean dry and intact - Routine Neurological Exam Present: alert, oriented X3 - Detailed Neurological Exam: Coma Scale Eye Opening: Spontaneous Verbal Response: Oriented Motor Response: Obey commands [place] Coma Scale Total: 15 - Routine Psychiatric Exam Present: normal affect - Urinary Catheter Management Indwelling Temp Sensing Catheter Cath placed during this visit: yes, but has since been removed by the nurse Reason for continuing: Hourly intake/output Insertion date: 05/21/18 Insertion time: 07:30 Removal date: 05/22/18 Removal time: 09:10 Assessment and Plan - Plan Assessment Aortic stenosis-status post AVR with Dr. Ortiz. Chronic CHF with preserved EF without evidence of exacerbation HTN HLD Diabetic COPD with wheezing Sleep apnea Elevated H/H PLAN: Status post AVR with Dr. Ortiz, recovering well. Agitation and confusion have resolved. Continue ASA Incentive spirometer and scheduled albuterol The patient was seen and evaluated by Dr Santos who completed face to face encounter, physical exam and participated in evaluation and management. Code Status: Full Code
--- NOTE | 2018-05-24 10:22 | P.PNCV ---
- Note Subjective/Hospital Course: 73-year-old male is a patient of Dr. Khang Del Angel, patient of Dr. Santos, known to Dr. Santos's office, who presented to the office yesterday with some chest pain that radiated to his left axilla and his back until 05/17/2018. He was seen in Dr. Santos's office on 05/16/2018. He was sent directly to the emergency department. The troponins were negative. EKG showed no acute ischemic changes. Chest x-ray was unremarkable. CT abdomen and pelvis, CTA thorax aorta showed no evidence for aneurysm or dissection. He has a history of known severe aortic stenosis with last echocardiogram in January 2018 showing ejection fraction 52%, left ventricular hypertrophy, left atrial enlargement, aortic valve area 0.5, trace mitral regurgitation, mild tricuspid regurgitation. He underwent cardiac catheterization today, which showed a mid distal LAD 60%, circumflex 25%, the RCA 25%. We were consulted to evaluate for aortic valve replacement and coronary artery bypass graft x1. PAST MEDICAL HISTORY: morbid obesity with a body mass index greater than 40, severe aortic stenosis, coronary artery disease, COPD, obstructive sleep apnea, uses a CPAP machine, hyperlipidemia, hypertension, hypothyroidism, restless leg syndrome, type 2 diabetes mellitus. surgery: 05/21 AVR with a 21 Trifecta tissue valve, CABG x 1, OLIVEIRA to LAD ALFREDO Cross-clamp time 83 minutes Cardiopulmonary bypass time 100 minutes Drains 36 [place] mediastinum and 32 [place] left pleural chest tubes Wires: Atrial 05/22/18 confused overnight No complaints 05/23/18 Remains somewhat confused and paranoid. 05/24 no further confusion/ paranoia or hallucinations slept better last night on nasal cannula in and out of Afib rate controlled will need anticoagulation/ start eliquis this pm Objective: Vital Signs - 24 hr 05/23/18 11:00 05/23/18 12:50 05/23/18 14:00 Temperature 98.3 F Pulse Rate 92 H 79 88 Respiratory Rate 18 18 Blood Pressure 151/84 H Pulse Oximetry 94 L 05/23/18 15:00 05/23/18 16:00 05/23/18 16:35 Temperature 98.2 F Pulse Rate 76 88 82 Respiratory Rate 18 18 Blood Pressure 148/62 H Pulse Oximetry 05/23/18 16:37 05/23/18 17:00 05/23/18 18:00 Temperature Pulse Rate 90 81 Respiratory Rate Blood Pressure Pulse Oximetry 95 05/23/18 19:00 05/23/18 20:00 05/23/18 21:00 Temperature 98.4 F Pulse Rate 85 87 81 Respiratory Rate 22 Blood Pressure 145/65 H Pulse Oximetry 95 05/23/18 22:00 05/23/18 23:00 05/24/18 00:00 Temperature 97.9 F Pulse Rate 81 79 76 Respiratory Rate 20 Blood Pressure Pulse Oximetry 05/24/18 01:00 05/24/18 02:00 05/24/18 03:00 Temperature Pulse Rate 82 69 66 Respiratory Rate 18 Blood Pressure Pulse Oximetry 05/24/18 04:00 05/24/18 05:00 05/24/18 05:50 Temperature Pulse Rate 67 65 64 Respiratory Rate Blood Pressure Pulse Oximetry 05/24/18 07:00 05/24/18 07:51 05/24/18 08:00 Temperature 98.4 F Pulse Rate 65 68 73 Respiratory Rate 19 19 Blood Pressure 155/73 H Pulse Oximetry 97 05/24/18 08:21 05/24/18 09:00 Temperature Pulse Rate 74 70 Respiratory Rate 19 Blood Pressure Pulse Oximetry 96 GENERAL: A&O x 3 SKIN: Warm and dry. prevena dressing to chest HEAD: Normocephalic. EYES: No scleral icterus. No injection or drainage. NECK: Supple, trachea midline. No JVD or lymphadenopathy. CARDIOVASCULAR: irregular rate and rhythm without murmurs, gallops, or rubs. RESPIRATORY: Breath sounds equal bilaterally. No accessory muscle use. diminished in the bases GASTROINTESTINAL: Abdomen soft, non-tender, nondistended. MUSCULOSKELETAL: No cyanosis, or edema. BACK: Nontender without obvious deformity. No CVA tenderness. Labs: Laboratory Results - last 12 hr 05/24/18 07:46 POC Glucose 155 H Result Diagrams: 05/23/18 10:18 05/23/18 10:18 Telemetry: Afib - Plan (1) Chest pain (4) S/P CABG x 1 Plan: ASA, statin BB , amiodarone (6) Diabetes Plan: diabetic diet, insulin sliding scale on home dose of glipizide (7) Hypertension Plan: EMELYN added (10) Confusion Plan: improving slept better last night , environmental cues continue zyprexa for now (1) Chest pain Qualifiers: Chest pain type: unspecified Qualified Code(s): R07.9 - Chest pain, unspecified (6) Diabetes Qualifiers: Diabetes mellitus type: type 2 Diabetes mellitus complication status: with circulatory complication Diabetes mellitus complication detail: with other circulatory complications
[2018-05-24 10:39] LABS: Calcium 8.5 mg/dL (8.5-10.1); Carbon Dioxide 30.6 meq/L (21.0-32.0); Magnesium 2.2 mg/dL (1.5-2.5); Potassium 4.1 meq/L (3.5-5.1)
[2018-05-24] MEDS: Lisinopril 5 MG Tablet PO SCH (12:30)
[2018-05-24] MEDS: Potassium Phosphate 500 MG Soluble Tablet PO SCH ×2 (14:51→20:55)
[2018-05-24] MEDS: Melatonin 5 MG Tablet PO SCH (20:54)
[2018-05-25] MEDS: Insulin NovoLOG Aspart Correctional Sugar Inj SQ SCH ×3 (04:00→12:40)
--- NOTE | 2018-05-25 05:48 | XR ---
EXAM DATE: 05/25/2018 4:58 AM EDT AGE/SEX: 73 years / Male INDICATIONS: Short of breath. CLINICAL DATA: This is the patient's subsequent encounter. Patient reports that signs and symptoms h ave been present for 4 - 6 days and indicates a pain score of 0/10. MEDICAL/SURGICAL HISTORY: Chronic obstructive pulmonary disease. Hypertension. Diabetes. Appe ndectomy. Cholecystectomy. [place] [facility] [place]. . FINDINGS: There has been interval removal of thoracostomy tubes. Subclavian central line is been removed. There is no evidence of pneumothorax or other complication. Mild bilateral atelectasis is present. Cardiac contours are unchanged. CONCLUSION: No complication of central line or thoracostomy tube removal. Electronically signed by: Troy Barajas MD 05/25/2018 5:47 AM EDT
[2018-05-25] MEDS: Amiodarone 200 MG Tablet PO SCH ×2 (05:50→14:42)
[2018-05-25] MEDS: Levothyroxine 150 MCG Tablet PO SCH (06:44)
[2018-05-25] MEDS: Dextrose 5%/NaCl 0.9% Inj 1,000 ML IV.CONT SCH (07:22)
[2018-05-25] MEDS: Senna/Docusate Sodium 8.6/50 MG Tablet PO SCH (08:18)
[2018-05-25] MEDS: Carvedilol 12.5 MG Tablet PO SCH (08:19)
[2018-05-25] MEDS: Furosemide 20 MG Tablet PO SCH (08:19)
[2018-05-25] MEDS: Lisinopril 5 MG Tablet PO SCH (08:19)
[2018-05-25] MEDS: glipiZIDE 5 MG Tablet PO SCH (08:20)
[2018-05-25] MEDS: Potassium Phosphate 500 MG Soluble Tablet PO SCH (08:20)
[2018-05-25 09:29] VITALS: RESP 18; TEMP 98
--- NOTE | 2018-05-25 10:45 | P.DS ---
Date of admission: 05/17/18 22:29 Primary care physician: Khang Del Angel MD, PhD Attending physician on discharge: Sanaz Ortiz Anticipated date of discharge: 05/25/18 Brief History from admission: 73-year-old male is a patient of Dr. Khang Del Angel, patient of Dr. Santos, known to Dr. Santos's office, who presented to the office yesterday with some chest pain that radiated to his left axilla and his back until 05/17/2018. He was seen in Dr. Santos's office on 05/16/2018. He was sent directly to the emergency department. The troponins were negative. EKG showed no acute ischemic changes. Chest x-ray was unremarkable. CT abdomen and pelvis, CTA thorax aorta showed no evidence for aneurysm or dissection. He has a history of known severe aortic stenosis with last echocardiogram in January 2018 showing ejection fraction 52%, left ventricular hypertrophy, left atrial enlargement, aortic valve area 0.5, trace mitral regurgitation, mild tricuspid regurgitation. He underwent cardiac catheterization today, which showed a mid distal LAD 60%, circumflex 25%, the RCA 25%. We were consulted to evaluate for aortic valve replacement and coronary artery bypass graft x1. PAST MEDICAL HISTORY: morbid obesity with a body mass index greater than 40, severe aortic stenosis, coronary artery disease, COPD, obstructive sleep apnea, uses a CPAP machine, hyperlipidemia, hypertension, hypothyroidism, restless leg syndrome, type 2 diabetes mellitus. Patient update on day of discharge: pt stable for discharge, slept ok last night no more confusion or hallucinations no narcotics stable for dc to rehab DS: Diagnosis - Discharge Diagnosis (1) Chest pain Status: Acute (2) Diastolic heart failure Status: Acute (3) S/P AVR (aortic valve replacement) Status: Acute (4) S/P CABG x 1 Status: Acute (5) Unstable angina Status: Acute (6) Diabetes Status: Chronic (7) Hypertension Status: Chronic (8) Aortic stenosis Status: Chronic (9) CAD (coronary artery disease) Status: Acute (10) Confusion Status: Acute DS: Summary Hospital Course: surgery: 05/21 AVR with a 21 Trifecta tissue valve, CABG x 1, LOIVEIRA to LAD ALFREDO Cross-clamp time 83 minutes Cardiopulmonary bypass time 100 minutes Drains 36 [place] mediastinum and 32 [place] left pleural chest tubes Wires: Atrial 05/22/18 confused overnight No complaints 05/23/18 Remains somewhat confused and paranoid. 05/24 no further confusion/ paranoia or hallucinations slept better last night on nasal cannula in and out of Afib rate controlled will need anticoagulation/ start eliquis this pm 05/25 remains in NSR , will taper dose amiodarone on ASA, no further confusion , will decrease pm dose zyprexa and can be weaned off if necessary stable for dc to rehab - Time Spent with Patient Total time spent providing and/or coordinating discharge services: Greater than 30 minutes - Quality: VTE Deep Vein Thrombosis/Pulmonary Embolism Present on Admission: No Exam Vital signs: Vital Signs 05/24/18 11:00 05/24/18 12:00 05/24/18 13:00 Temperature 97.5 F L Pulse Rate 64 63 64 Respiratory Rate 21 Blood Pressure 131/62 Pulse Oximetry 97 05/24/18 15:00 05/24/18 15:55 05/24/18 16:00 Temperature 97.4 F L Pulse Rate 67 67 68 Respiratory Rate 20 20 Blood Pressure 129/62 Pulse Oximetry 95 05/24/18 17:00 05/24/18 18:00 05/24/18 19:30 Temperature 98.5 F Pulse Rate 71 75 70 Respiratory Rate 16 Blood Pressure 106/57 L Pulse Oximetry 95 05/24/18 20:00 05/24/18 20:28 05/24/18 21:00 Temperature Pulse Rate 67 68 68 Respiratory Rate 16 Blood Pressure Pulse Oximetry 91 L 05/24/18 22:00 05/24/18 23:00 05/25/18 00:00 Temperature 98.6 F Pulse Rate 63 63 60 Respiratory Rate 15 Blood Pressure 104/52 L Pulse Oximetry 93 L 05/25/18 01:00 05/25/18 02:00 05/25/18 03:00 Temperature 98.6 F Pulse Rate 65 63 64 Respiratory Rate 15 Blood Pressure 104/60 Pulse Oximetry 94 L 05/25/18 03:35 05/25/18 03:38 05/25/18 04:00 Temperature Pulse Rate 60 62 63 Respiratory Rate 14 Blood Pressure Pulse Oximetry 05/25/18 05:00 05/25/18 06:00 05/25/18 07:00 Temperature 98.0 F Pulse Rate 65 65 68 Respiratory Rate 18 Blood Pressure 119/56 L Pulse Oximetry 93 L 05/25/18 08:00 05/25/18 09:00 05/25/18 09:43 Temperature Pulse Rate 70 70 68 Respiratory Rate 18 Blood Pressure Pulse Oximetry 95 05/25/18 10:00 Temperature Pulse Rate 62 Respiratory Rate Blood Pressure Pulse Oximetry Intake & Output 05/24/18 05/25/18 05/25/18 18:59 06:59 18:59 Intake Total 720 / 720 800 / 800 50 / 50 Output Total 850 / 850 150 / 150 Balance -130 / -130 650 / 650 50 / 50 Weight 101 kg Intake: IV 50 / 50 Oral 720 / 720 800 / 800 Output: Urine 850 / 850 150 / 150 Other: # Voids 2 Date of Last Bowel Movement 05/24/18 05/25/18 - Constitutional no acute distress - Routine HEENT Exam Head: Present: normocephalic, atraumatic Eye: Present: EOMI, PERRL, normal accommodation - Routine Neck Exam Present: supple, full ROM - Routine Chest/Breast/Axilla Exam Chest wall: Present: tenderness - Routine Respiratory Exam Present: CTA bilaterally - Routine Cardiovascular Exam Present: RRR, S1, S2 - Routine Abdominal Exam Present: soft, normoactive bowel sounds - Routine Extremities Exam Present: full ROM, pulses intact, normal capillary refill - Routine Skin Exam Present: intact, wounds Comments: prevena dressing in place to chest leg incision intact and well approximated - Routine Neurological Exam Present: alert, oriented X3 some mild forgetfulness Results Procedures completed during hospitalization: INDICATION FOR CATHETERIZATION: 1. Severe aortic stenosis. 2. Chest pain. CONSENT: A full informed consent was obtained prior to procedure. The risks of , bleeding, myocardial infarction, perforation, aspiration, foreseen and unforeseen were reviewed. The patient fully understood the risks. PROCEDURE The patient was draped in usual manner. Right femoral artery was entered using a micropuncture technique with ultrasound via the 4-Dominican sheath. Left and right coronary catheters were used to intubate the left and right coronary arteries. Pigtail catheter left ventricle. Multiple angiographic views were carried out. At the end of the catheterization procedure, all catheters were removed. Sheath was left in place to be pulled in the holding area. FINDINGS: HEMODYNAMICS: The left ventricular pressure was 213 with a left ventricular end diastolic pressure of 21. The aortic pressure was 167/70 mean aortic pressure of 110. The mean gradient was 49.52. The peak gradient was approximately 46 mmHg. CORONARY ARTERIES: The left main was free of significant disease. The left anterior descending artery was a large vessel. There was a large first diagonal branch. There was a small second diagonal branch. In the mid LAD there was a 50%-60% stenosis. Circumflex vessel was a large vessel with a large first obtuse marginal branch, small second obtuse marginal branch, small third obtuse marginal branch. The right coronary artery had an eccentric access entered with an AL-1 catheter. It had a large posterior descending artery and a small posterolateral branch CONCLUSION: 1. Normal left ventricular function. 2. Single vessel coronary artery disease involving primarily the left anterior descending at 60%, severe aortic stenosis noted by echo and also by mean gradient. PLAN: Aortic valve replacement with single vessel bypass. Date of procedure: 05/21/18 Procedure: AVR with a 21 Trifecta tissue valve CABG x 1 OLIVEIRA to LAD ALFREDO Labs on day of discharge: Labs from last 24 hours 05/25/18 05/25/18 05/24/18 07:45 03:06 19:42 Sodium Potassium Chloride Carbon Dioxide Anion Gap BUN Creatinine Estimated GFR POC Glucose 110 121 H 174 H Random Glucose Calcium Phosphorus Magnesium 05/24/18 05/24/18 05/24/18 16:37 12:03 09:45 Sodium 143 Potassium 4.1 Chloride 105 Carbon Dioxide 30.6 Anion Gap 7 BUN 21 H Creatinine 0.97 Estimated GFR 75 L POC Glucose 109 200 H Random Glucose 217 H Calcium 8.5 Phosphorus 2.0 L Magnesium 2.2 - Impressions ITS Impressions Thoracic Aorta CT 05/17/18 22:10 CONCLUSION: 1. CTA negative for thoracic or abdominal aortic aneurysm or dissection. Moderate atherosclerotic change present including within the coronary arteries. Carotid Doppler Study 05/20/18 15:18 CONCLUSION: 1. Right Internal Carotid Artery: Mild atherosclerotic plaquing. No hemodynamically significant carotid artery stenosis identified. 2. Left Internal Carotid Artery: Mild atherosclerotic plaquing. No hemodynamically significant carotid artery stenosis identified. Chest X-Ray 05/25/18 06:00 CONCLUSION: No complication of central line or thoracostomy tube removal. Discharge Plan - Discharge Disposition Patient Disposition: [facility] Inpatient - Discharge Condition Condition: Stable - Discharge Order Discharge Orders: Discharge Order (Routine); Ordered 05/25/18 Ordered By: Ewelina Campos - Discharge Details Anticipated Discharge Date: 05/25/18 - Physicians Team Primary Care Provider: Khang Del Angel Attending Provider: Sanaz Ortiz Other Providers: Otto Santos MD
[2018-05-25 12:39] VITALS: BP 110/53; O2SAT 97
[2018-05-25 13:27] VITALS: PULSE 63
== END 2018-05-25 16:00 ==
LOC: NEPE 15:53 → NEDA 20:56 → INTOOBSV 20:56 → OBSVTOIN 22:29 → NEPHCDU 05-18 01:36 → HCPC 05-19 15:11 → HCVI 05-21 12:44 → HCPC 05-23 13:27
PROVIDERS: ADMIT Thoracic Surgery (Cardiothoracic Vascular Surgery); ATTEND Thoracic Surgery (Cardiothoracic Vascular Surgery)